=== PATIENT | female | born 1945 | race Asian ===

== ENCOUNTER 2017-09-22 01:10 | Emergency (ER) | payer OTHER ==
[2017-09-22] MEDS ORDERED: ALBUTEROL 2.5 MG/3 ML NEB SOL ONE (01:47)
[2017-09-22] MEDS ORDERED: IPRATROPIUM BROM 0.5MG/2.5ML ONE (01:47)
[2017-09-22 02:09] LABS: Absolute Lymphocytes (CBC) 2.1 K/uL (0.7-4.9); Absolute Monocytes 0.9 K/uL (0.1-1.3); Absolute Neutrophil 4.5 K/uL (1.8-8.0); Basophils % 1.2 % (0-1.3); Eosinophils % 1.7 % (0-4.4); Hematocrit 29.9 % (36.0-45.0); Lymphocytes % 27.2 % (15.3-44.8); MCH 21.9 pg (27.0-35.0); MCV 70.4 fL (80-100); MPV 8.6 fL (7.6-11.3); Monocytes % 11.7 % (3.3-12.3); RBC Red Blood Cell Count 4.26 M/uL (3.86-4.86)
[2017-09-22 02:11] LABS: Protime INR 1.71
[2017-09-22 02:15] LABS: Potassium 4.3 mEq/L (3.6-5.0)
[2017-09-22 02:20] LABS: CKMB Creatine Kinase MB 1.3 ng/ml (0.3-4.0)
[2017-09-22 02:21] LABS: Albumin 3.6 g/dL (3.2-5.5); Bilirubin Direct 0.1 mg/dL (0-0.2); Bilirubin Total 0.5 mg/dL (0.3-1.2); Magnesium 1.9 mg/dL (1.8-2.5); Protein, Total 8.3 g/dL (6.0-8.3)
--- NOTE | 2017-09-22 03:22 | ER ---
Nurse's Notes [facility] Name: Nallely Hanks Age: 71 yrs Sex: Female : 1945 Arrival Date: 09/22/2017 Time: 01:12 Bed 5 Private MD: Maksim Michael R Diagnosis: Dyspnea, unspecified Presentation: 09/22 01:32 Presenting complaint: Patient states: she is having SOB x 2 days which is getting bb progressively worse. Transition of care: patient was not received from another setting of care. Onset of symptoms was September 19, 2017. Initial Sepsis Screen: Does the patient meet any 2 criteria? No. Patient's initial sepsis screen is negative. Does the patient have a suspected source of infection? No. Patient's initial sepsis screen is negative. Care prior to arrival: None. 01:32 Method Of Arrival: Wheelchair bb 01:32 Acuity: PANTERA 2 bb Historical: - Allergies: 01:36 Codeine; bb 01:36 PENICILLINS; bb - Home Meds: 01:36 amlodipine besylate 10 mg 1 tab daily [Active]; atorvastatin 40 mg oral tab 1 tab once bb daily [Active]; metoprolol er succinate 25 mg 1 tab twice a day [Active]; Xarelto 20 mg Oral tab 1 tab once daily [Active]; levothyroxine 25 mcg tab 1 tab once daily [Active]; - PMHx: 01:36 CAD; CVA; Depression; Hypertension; Hypothyroidism; bb - PSHx: 01:36 Cholecystectomy; bb - Immunization history:: Adult Immunizations up to date. - Social history:: Smoking status: Patient/guardian denies using tobacco, Patient/guardian denies using alcohol, street drugs. Screenin:44 Abuse screen: Denies threats or abuse. Nutritional screening: No deficits noted. tl2 Tuberculosis screening: No symptoms or risk factors identified. Fall Risk None identified. Assessment: 01:44 General: Appears in no apparent distress. uncomfortable, Behavior is calm, cooperative, tl2 appropriate for age. Pain: Denies pain. Neuro: Level of Consciousness is awake, alert, obeys commands, Oriented to person, place, time, situation. Cardiovascular: Denies chest pain. Respiratory: Airway is patent Respiratory effort is even, labored, Respiratory pattern is regular, Breath sounds with wheezes bilaterally. the patient has mild shortness of breath. GI: No signs and/or symptoms were reported involving the gastrointestinal system. : No signs and/or symptoms were reported regarding the genitourinary system. Derm: Skin is pink, warm \T\ dry. 02:37 Reassessment: Patient appears in no apparent distress at this time. Patient and/or tl2 family updated on plan of care and expected duration. Pain level reassessed. Patient is alert, oriented x 3, equal unlabored respirations, skin warm/dry/pink. feeling better after breathing treatment. 03:44 Reassessment: Patient appears in no apparent distress at this time. Patient and/or mg2 family updated on plan of care and expected duration. Pain level reassessed. Patient is alert, oriented x 3, equal unlabored respirations, skin warm/dry/pink. Pt and family verbalized understanding of discharge instructions, need for follow up and prescription usage. Vital Signs: 01:36 BP 159 / 65; Pulse 67; Resp 24; Temp 97.7(O); Pulse Ox 100% on R/A; Weight 45.36 kg bb (R); Height 5 ft. 2 in. (157.48 cm) (R); Pain 0/10; 02:36 BP 150 / 77; Pulse 66; Resp 18; Pulse Ox 100% on R/A; tl2 03:44 BP 127 / 65; Pulse 69; Resp 18; Pulse Ox 96% on R/A; mg2 01:36 Body Mass Index 18.29 (45.36 kg, 157.48 cm) bb ED Course: 01:12 Patient arrived in ED. am2 01:12 Maksim Michael MD is Private Physician. am2 01:33 Triage completed. bb 01:36 [facility]C [facility] snw 01:36 Arm band placed on Patient placed in an exam room, on a stretcher, on junior web designer, bb on pulse oximetry. Family accompanied patient. 01:37 Claus Eagle MD is Attending Physician. snw 01:44 Ayse Landon RN is Primary Nurse. tl2 01:44 Patient has correct armband on for positive identification. Bed in low position. Call tl2 light in reach. Side rails up X2. Adult w/ patient. 01:44 Inserted saline lock: 22 gauge in right antecubital area, using aseptic technique. tl2 Blood collected. 02:11 X-ray completed. Portable x-ray completed in exam room. Patient tolerated procedure kp1 well. 02:12 XRAY Chest (1 view) In Process Unspecified. EDMS 03:20 Maksim Michael MD is Referral Physician. snw 03:44 No provider procedures requiring assistance completed. IV discontinued, intact, mg2 bleeding controlled, No redness/swelling at site. Pressure dressing applied. Administered Medications: 01:52 Drug: Albuterol - atroVENT (3:1) (2.5 mg - 0.5 mg) 3 ml Route: Nebulizer; tl2 03:46 Follow up: Response: Marked relief of symptoms mg2 Outcome: 03:21 Discharge ordered by MD. snw 03:44 Discharged to home via wheelchair, with family. mg2 03:44 Condition: stable 03:44 Discharge instructions given to patient, family, Instructed on discharge instructions, follow up and referral plans. medication usage, Demonstrated understanding of instructions, follow-up care, medications, Prescriptions given X 3. 03:47 Patient left the ED. mg2 Signatures: Dispatcher [employer] EDWI Eliana Peck, COOK APPRENTICE PASTRY-C COOK APPRENTICE PASTRY-Csnw Stephanie Alonzo RN RN bb Ayse Landon, JOSE RN tl2 Gely Kelsey am2 Eunice Abbasi kp1 Brayden Williamson, JOSE RN mg2
--- NOTE | 2017-09-22 03:22 | EDPHYS ---
Physician Documentation [facility] Name: Nallely Hanks Age: 71 yrs Sex: Female : 1945 Arrival Date: 09/22/2017 Time: 01:12 Bed 5 Private MD: Maksim Michael R ED Physician Claus Eagle HPI: 09/22 01:51 This 71 yrs old Female presents to ER via Wheelchair with complaints of Breathing snw Difficulty. 01:51 The patient has shortness of breath at rest. Onset: The symptoms/episode began/occurred snw suddenly, yesterday, and became worse. Duration: The symptoms are continuous, and are steadily getting worse. Associated signs and symptoms: The patient has no apparent associated signs or symptoms. Severity of symptoms: At their worst the symptoms were moderate. The patient has experienced similar episodes in the past. Historical: - Allergies: 01:36 Codeine; bb 01:36 PENICILLINS; bb - Home Meds: 01:36 amlodipine besylate 10 mg 1 tab daily [Active]; atorvastatin 40 mg oral tab 1 tab once bb daily [Active]; metoprolol er succinate 25 mg 1 tab twice a day [Active]; Xarelto 20 mg Oral tab 1 tab once daily [Active]; levothyroxine 25 mcg tab 1 tab once daily [Active]; - PMHx: 01:36 CAD; CVA; Depression; Hypertension; Hypothyroidism; bb - PSHx: 01:36 Cholecystectomy; bb - Immunization history:: Adult Immunizations up to date. - Social history:: Smoking status: Patient/guardian denies using tobacco, Patient/guardian denies using alcohol, street drugs. ROS: 01:52 Constitutional: Negative for fever, chills, and weight loss, Eyes: Negative for injury, snw pain, redness, and discharge, ENT: Negative for injury, pain, and discharge, Neck: Negative for injury, pain, and swelling, Cardiovascular: Negative for chest pain, palpitations, and edema, Abdomen/GI: Negative for abdominal pain, nausea, vomiting, diarrhea, and constipation, Back: Negative for injury and pain, : Negative for injury, bleeding, discharge, and swelling, MS/Extremity: Negative for injury and deformity, Skin: Negative for injury, rash, and discoloration, Neuro: Negative for headache, weakness, numbness, tingling, and seizure. Exam: 01:52 Head/Face: Normocephalic, atraumatic. Eyes: Pupils equal round and reactive to light, snw extra-ocular motions intact. Lids and lashes normal. Conjunctiva and sclera are non-icteric and not injected. Cornea within normal limits. Periorbital areas with no swelling, redness, or edema. ENT: Nares patent. No nasal discharge, no septal abnormalities noted. Tympanic membranes are normal and external auditory canals are clear. Oropharynx with no redness, swelling, or masses, exudates, or evidence of obstruction, uvula midline. Mucous membranes moist. Neck: Trachea midline, no thyromegaly or masses palpated, and no cervical lymphadenopathy. Supple, full range of motion without nuchal rigidity, or vertebral point tenderness. No Meningismus. Chest/axilla: Normal chest wall appearance and motion. Nontender with no deformity. No lesions are appreciated. Cardiovascular: Regular rate and rhythm with a normal S1 and S2. No gallops, murmurs, or rubs. Normal PMI, no JVD. No pulse deficits. 01:52 Abdomen/GI: Soft, non-tender, with normal bowel sounds. No distension or tympany. No guarding or rebound. No evidence of tenderness throughout. Back: No spinal tenderness. No costovertebral tenderness. Full range of motion. Skin: Warm, dry with normal turgor. Normal color with no rashes, no lesions, and no evidence of cellulitis. MS/ Extremity: Pulses equal, no cyanosis. Neurovascular intact. Full, normal range of motion. 01:52 Constitutional: The patient appears alert, anxious. 01:52 Respiratory: mild respiratory distress is noted, Respirations: prolonged exhalation, that is moderate, shallow respirations, Breath sounds: decreased breath sounds, that are moderate, are heard in the left upper lobe, left lower lobe, left posterior upper lobe and left posterior lower lobe. 01:52 Neuro: Orientation: appropriate for stated age, Mentation: appropriate for stated age, Motor: left sided paralysis from CVA in 2016, seizure activity, is not displayed by the patient. Vital Signs: 01:36 BP 159 / 65; Pulse 67; Resp 24; Temp 97.7(O); Pulse Ox 100% on R/A; Weight 45.36 kg bb (R); Height 5 ft. 2 in. (157.48 cm) (R); Pain 0/10; 02:36 BP 150 / 77; Pulse 66; Resp 18; Pulse Ox 100% on R/A; tl2 03:44 BP 127 / 65; Pulse 69; Resp 18; Pulse Ox 96% on R/A; mg2 01:36 Body Mass Index 18.29 (45.36 kg, 157.48 cm) bb MDM: 01:37 Patient medically screened. snw 03:27 Data reviewed: vital signs, nurses notes. Data interpreted: Pulse oximetry: on room air snw is 100 %. Interpretation: normal. Counseling: I had a detailed discussion with the patient and/or guardian regarding: the historical points, exam findings, and any diagnostic results supporting the discharge/admit diagnosis, the presence of at least one elevated blood pressure reading (>120/80) during this emergency department visit, lab results, radiology results, the need for outpatient follow up, to return to the emergency department if symptoms worsen or persist or if there are any questions or concerns that arise at home. Special discussion: I have referred the patient to see his PCP for further evaluation of high blood pressure. Based on the history and exam findings, there is no indication for further emergent testing or inpatient evaluation. I discussed with the patient/guardian the need to see the primary care provider for further evaluation of the symptoms. 09/22 01:38 Order name: Basic Metabolic Panel; Complete Time: 03:03 snw 09/22 01:38 Order name: BNP; Complete Time: 03:03 snw 09/22 01:38 Order name: CBC with Diff w 09/22 01:38 Order name: Ckmb; Complete Time: 03:03 snw 09/22 01:38 Order name: CPK; Complete Time: 03:03 snw 09/22 01:38 Order name: LFT's; Complete Time: 03:03 snw 09/22 01:38 Order name: Magnesium; Complete Time: 03:03 snw 09/22 01:38 Order name: PT-INR; Complete Time: 03:03 snw 09/22 01:38 Order name: Ptt, Activated; Complete Time: 03:03 snw 09/22 01:38 Order name: Troponin (emerg Dept Use Only); Complete Time: 03:03 snw 09/22 01:38 Order name: XRAY Chest (1 view) [facility] 09/22 01:38 Order name: ABG [facility] 09/22 02:13 Order name: CBC Smear Scan [facility] 09/22 01:38 Order name: EKG; Complete Time: 01:39 w 09/22 01:38 Order name: Cardiac monitoring; Complete Time: 01:43 snw 09/22 01:38 Order name: EKG - Nurse/Tech; Complete Time: :44 w 09/22 01:38 Order name: IV Saline Lock; Complete Time: :44 snw 09/22 01:38 Order name: Labs collected and sent; Complete Time: 44 snw 09/22 01:38 Order name: O2 Per Protocol; Complete Time: 09/22 01:38 Order name: O2 Sat Monitoring; Complete Time: snw Administered Medications: 01:52 Drug: Albuterol - atroVENT (3:1) (2.5 mg - 0.5 mg) 3 ml Route: Nebulizer; tl2 03:46 Follow up: Response: Marked relief of symptoms mg2 Disposition: 04:19 Co-signature as Attending Physician, Claus Eagle MD. rn Disposition: 09/22/17 03:21 Discharged to Home. Impression: Dyspnea, unspecified. - Condition is Stable. - Discharge Instructions: Iron Deficiency Anemia, Adult, Shortness of Breath. - Prescriptions for Albuterol Sulfate 90 mcg/actuation - inhale 1-2 puff by INHALATION route every 4-6 hours; 1 Inhaler. Vitamin 27- 0.8 mg Oral Tablet - take 1 tablet by ORAL route once daily; 30 tablet. Hydrochlorothiazide 25 mg Oral Tablet - take 1 tablet by ORAL route once daily .; 20 tablet. - Medication Reconciliation Form, Thank You Letter, Antibiotic Education, Prescription Opioid Use form. - Follow up: Maksim Michael MD; When: 48 Hours; Reason: Recheck today's complaints, Continuance of care, Re-evaluation by your physician. Follow up: Emergency Department; When: As needed; Reason: Trouble breathing, Worsening of condition. Signatures: Dispatcher [employer] [facility] Eliana Peck, ASSOCIATE PROFESSOR OF CRIMINAL JUSTICE-C ASSOCIATE PROFESSOR OF CRIMINAL JUSTICE-Csnw Stephanie Alonzo, RN Claus Youngblood MD MD rn KnoxAyse RN RN tl2 Brayden Williamson RN RN mg2 Corrections: (The following items were deleted from the chart) 03:47 01:38 Urine Dipstick-Ancillary ordered. [facility] mg2
[2017-09-22 03:51] VITALS: TEMP 97.7
[2017-09-22 03:53] VITALS: BP 127/65; O2SAT 96
[2017-09-22 03:59] LABS: Blood Morphology Comment NOTED (NOT SEEN); Hypochromasia 1+; Platelet Estimate ADEQ; Urine White Blood Cell Casts OK
[2017-09-22 04:13] LABS: Blood Gas Oxyhemoglobin 97.6 % (94-97); Blood O2 Saturation 97.8 % (92-98.5)
--- NOTE | 2017-09-22 10:11 | RAD REPORT ---
EXAM DESCRIPTION: RAD - Chest Single View - 09/22/2017 2:12 am CLINICAL HISTORY: Dyspnea, chest pain, shortness of breath COMPARISON: March 2017 TECHNIQUE: AP portable chest image was obtained 0151 hours . FINDINGS: No peripheral mass, consolidation or failure finding. Chronic interstitial lung disease is present similar to comparison. Nodular density over the lower right lung field is believed to be a n ipple shadow similar to prior imaging. Trachea is midline. Heart size is upper normal. No vascular en gorgement. No measurable pleural effusion and no pneumothorax. No gross bony abnormality seen. No acu te aortic findings suspected. IMPRESSION: Chronic chest findings are present as detailed. No clear change or acute finding.
--- NOTE | 2017-09-23 07:18 | EKG ---
Test Date: 2017-09-22 Test Time: 01:49:15 Cloud Automation Tester: NANCY MEASUREMENT RESULTS: Intervals: Rate: 79 DE: 288 QRSD: 86 QT: 436 QTc: 499 [place]: P: DE: 288 QRS: -24 T: 38 INTERPRETIVE STATEMENTS: Sinus rhythm with 1st degree AV block Septal infarct, age undetermined Abnormal ECG Compared to ECG 04/25/2017 09:00:22 Left-axis deviation no longer present Prolonged QT interval no longer present Myocardial infarct finding still present Electronically Signed On 09-23-17 07:17:57 CDT by Andrey Fenton
== END 2017-09-22 03:47 | disposition home or self-care (01) ==
LOC: ER 01:10
DX: R06.00 Dyspnea, unspecified (principal); I10 Essential (primary) hypertension; E03.9 Hypothyroidism, unspecified; I25.10 Atherosclerotic heart disease of native coronary artery without angina pectoris; Z79.01 Long term (current) use of anticoagulants; Z86.73 Personal history of transient ischemic attack (TIA), and cerebral infarction without residual deficits; Z88.0 Allergy status to penicillin; Z88.5 Allergy status to narcotic agent
CPT/HCPCS: 36415; 71045; 80048; 80076; 82550; 82553; 82805; 83735; 83880; 84484; 85025; 85610; 85730; 93005; 94640; 99284

== ENCOUNTER 2017-09-24 14:55 | Inpatient (IN) | payer OTHER ==
[2017-09-24] MEDS ORDERED: NACHLORIDE 0.45% 1,000 ML IV SCH (16:00)
[2017-09-24 16:30] LABS: Absolute Lymphocytes (CBC) 0.8 K/uL (0.7-4.9); Absolute Monocytes 0.5 K/uL (0.1-1.3); Absolute Neutrophil 6.1 K/uL (1.8-8.0); Basophils % 0.6 % (0-1.3); Eosinophils % 0.9 % (0-4.4); Hematocrit 31.5 % (36.0-45.0); Lymphocytes % 10.7 % (15.3-44.8); MCV 68.7 fL (80-100); MPV 8.6 fL (7.6-11.3); Monocytes % 6.3 % (3.3-12.3); RBC Red Blood Cell Count 4.59 M/uL (3.86-4.86)
[2017-09-24] MEDS ORDERED: Morphine 2 MG/2 ML SYR IV PRN (16:45)
[2017-09-24 16:54] LABS: Albumin 3.4 g/dL (3.2-5.5); Bilirubin Total 0.6 mg/dL (0.3-1.2); Potassium 4.3 mEq/L (3.6-5.0)
[2017-09-24 17:04] LABS: Blood Morphology Comment NOTED (NOT SEEN); Platelet Estimate ADEQ; Urine White Blood Cell Casts OK
[2017-09-24 17:31] LABS: Urine Appearance TURBID; Urine Bilirubin NEGATIVE (NEG); Urine Blood NEGATIVE (NEG); Urine Color YELLOW; Urine Glucose NEGATIVE (NEG); Urine Microscopic Reflex ORDER UMIC; Urine Protein TRACE (NEG); Urine pH 7.5 (5.0-7.0)
[2017-09-24 17:44] LABS: Urine Bacteria 20-50 /HPF (<20); Urine RBC <5 /HPF (NONE SEEN)
[2017-09-24 17:45] LABS: Urine Amorphous Sediment 1+ /HPF (NONE SEEN); Urine Culture Reflex Order REFLEXED
--- NOTE | 2017-09-24 19:30 | RAD REPORT ---
EXAM DESCRIPTION: CTAbdomen Pelvis W Contrast - 09/24/2017 7:03 pm CLINICAL HISTORY: Abdominal pain. COMPARISON: None. TECHNIQUE: Biphasic CT imaging of the abdomen and pelvis was performed with 100 ml non-ionic IV cont rast. All CT scans are performed using dose optimization technique as appropriate and may include automated exposure control or mA/KV adjustment according to patient size. FINDINGS: Small amount of left pleural fluid noted with subsegmental atelectasis in left lung base. The liver demonstrates mild intrahepatic biliary dilatation. The spleen, pancreas, adrenal glands and kidneys are within normal limits. Cholecystectomy is seen with prominence of common bile duct measur ing up to 10 mm. Aortic atherosclerosis is present. Multiple dilated small bowel loops are noted proximally with more distal small bowel appearing decomp ressed, most compatible with partial mechanical small bowel obstruction. No pneumatosis. No free intr aperitoneal air. Mild free fluid seen lower abdomen. The appendix is not identified as a discrete str ucture, however, no secondary findings of appendicitis are identified. No evidence of significant l ymphadenopathy. Moderate lower lumbar degenerative changes. IMPRESSION: Moderate partial mechanical small bowel obstruction is noted. Findings were discussed with Dr. Michael at 7:30 p.m. 09/24/2017 by telephone.
[2017-09-24] MEDS: METRONIDAZOLE 500mg IVPB 500 MG/100 ML BAG IV SCH (20:55)
[2017-09-24] MEDS: NACHLORIDE 0.45% 1,000 ML IV SCH (20:55)
[2017-09-24] MEDS: CIPROFLOXACIN 400mg IV 400 MG/200 ML BAG IV SCH (20:56)
[2017-09-24] MEDS: Morphine 2 MG/2 ML SYR IV PRN (21:46)
[2017-09-24] MEDS ORDERED: ONDANSETRON 4 MG/2 ML VIAL IV PRN (22:04)
[2017-09-25] MEDS: METRONIDAZOLE 500mg IVPB 500 MG/100 ML BAG IV SCH ×3 (01:18→16:57)
[2017-09-25 05:33] LABS: Absolute Lymphocytes (CBC) 0.9 K/uL (0.7-4.9); Absolute Monocytes 0.6 K/uL (0.1-1.3); Absolute Neutrophil 6.2 K/uL (1.8-8.0); Basophils % 0.5 % (0-1.3); Eosinophils % 0.5 % (0-4.4); Hematocrit 27.9 % (36.0-45.0); Lymphocytes % 11.1 % (15.3-44.8); MCV 70.3 fL (80-100); MPV 8.5 fL (7.6-11.3); Monocytes % 7.4 % (3.3-12.3); RBC Red Blood Cell Count 3.97 M/uL (3.86-4.86)
[2017-09-25 05:38] LABS: MCH 21.5 pg (27.0-35.0)
[2017-09-25 05:43] LABS: BUN Blood Urea Nitrogen 17 mg/dL (6-20); Bicarbonate 26 mEq/L (21-31); Glucose Level 115 mg/dL (65-120); Magnesium 1.6 mg/dL (1.8-2.5); Phosphorus 4.1 mg/dL (2.5-4.3); Potassium 3.5 mEq/L (3.6-5.0); Sodium Level 131 mEq/L (135-145)
[2017-09-25] MEDS: NACHLORIDE 0.45% 1,000 ML IV SCH ×2 (07:30→12:52)
--- NOTE | 2017-09-25 08:50 | RAD REPORT ---
EXAM DESCRIPTION: RAD - Abdomen W Erect - 09/25/2017 6:57 am CLINICAL HISTORY: Bowel obstruction. COMPARISON: 09/24/2017 FINDINGS: Multiple dilated loops of small bowel are seen in the central abdomen compatible with mode rate mechanical small-bowel obstruction. NG tube descends in the stomach. Cholecystectomy clips seen. No pneumoperitoneum. No suspicious calcifications. Contrast in the urinary bladder. IMPRESSION: Moderate mechanical small-bowel obstruction seen, mildly improved since recent CT study.
[2017-09-25] MEDS: CIPROFLOXACIN 400mg IV 400 MG/200 ML BAG IV SCH ×2 (09:20→20:50)
[2017-09-25] MEDS: Morphine 2 MG/2 ML SYR IV PRN (11:12)
--- NOTE | 2017-09-25 12:16 | EKG ---
Test Date: 2017-09-25 Test Time: 11:36:20 Metal Trimmer: GABINO MEASUREMENT RESULTS: Intervals: Rate: 62 MO: 258 QRSD: 92 QT: 490 QTc: 497 [place]: P: 66 MO: 258 QRS: 29 T: 54 INTERPRETIVE STATEMENTS: Sinus rhythm with 1st degree AV block Anterior infarct, age undetermined Abnormal ECG Compared to ECG 09/22/2017 01:49:15 No significant changes Electronically Signed On 09-25-17 12:15:40 CDT by Andrey Fenton
--- NOTE | 2017-09-25 13:39 | ECHO ---
HEIGHT: 5 ft 2 in WEIGHT: 90 lb 8 oz DATE OF STUDY: 09/25/[address]: 2-DIMENSIONAL: YES M.MODE: YES DOPPLER: YES COLOR FLOW: YES TDS: NO PORTABLE: NO DEFINITY: NO BUBBLE STUDY: NO DIAGNOSIS: HISTORY OF AFIB CARDIAC HISTORY: CATHERIZATION: NO SURGERY: NO PROSTHETIC VALVE: NO PACEMAKER: NO MEASUREMENTS (cm) DIASTOLIC (NORMALS) SYSTOLIC (NORMALS) IVSd 0.8 (0.6-1.2) LA Diam 3.0 (1.9-4.0) LVEF 78% LVIDd 4.1 (3.5-5.7) LVIDs 2.2 (2.0-3.5) %FS 46% LVPWd 0.9 (0.6-1.2) Ao Diam 2.5 (2.0-3.7) 2 DIMENSIONAL ASSESSMENT: RIGHT ATRIUM: NORMAL LEFT ATRIUM: NORMAL RIGHT VENTRICLE: NORMAL LEFT VENTRICLE: NORMAL TRICUSPID VALVE: NORMAL MITRAL VALVE: NORMAL PULMONIC VALVE: NORMAL AORTIC VALVE: NORMAL PERICARDIAL EFFUSION: NONE AORTIC ROOT: NORMAL LEFT VENTRICULAR WALL MOTION: NORMAL DOPPLER/COLOR FLOW: MILD MITRAL, TRICUSPID, AORTIC REGURGITATION. ESTIMATED RIGHT VENTRICULAR SYSTOLIC PRESSURE 40 MMHG. MILD PULMONARY HYPERTENSION. COMMENTS: NORMAL 2D ECHOCARDIOGRAM. MILD MITRAL, TRICUSPID, AORTIC REGURGITATION. MILD PULMONARY HYPERTENSION. TECHNOLOGIST: GRAZYNA PIPER
--- NOTE | 2017-09-25 14:33 | CON ---
Date of Consultation: 09/24/2017 Reason: Small bowel obstruction. History Of Present Illness: The patient is a 71-year-old female who comes in with 2-day history of a bdominal distention, nausea, vomiting, last bowel movement was 2 days ago, and that the last time she passed gas. Complaining of diffuse abdominal crampy pain off and on, feels better after the NG tube is placed. No sore throat, runny nose, cough, headaches, or dizziness. No chest pain. Review of Systems: Otherwise unremarkable. Past Medical History: Significant for stroke with left hemiplegia, congestive heart failure, chronic atrial fibrillation, and hypertension. Past Surgical History: Hysterectomy, cholecystectomy, PEG tube. Allergies: INCLUDE CODEINE AND PENICILLIN. Social History: She does not smoke or drink. Family History: Significant for diabetes. Physical Examination: Vital Signs: Stable. She is afebrile. General: She is awake, alert, and oriented x3. Head and Neck: Cranial 2-12 grossly within normal limits. No neck masses. No JVD. Throat clear. Neck is supple. Chest: Clear. Heart: S1, S2. Abdomen: Soft. Minimal tenderness. Slightly distended. Hypoactive bowel sounds. No peritonitis. Extremity: Adequately perfused. Neuro: Left hemiplegia. Laboratory Data: White count is normal, but there is a slight left shift. H and H are 8.5 and 27.9. Electrolytes reviewed, her mag is slightly low at 1.6, potassium is 3.5. CT of the abdomen and pel vis, and abdominal x-ray done this morning and reviewed with Dr. Vargas essentially show a partial smal l bowel obstruction, which is slightly improved on the x-rays today. Assessment: A partial small bowel obstruction. Recommendation: Continue n.p.o. NG tube, IV fluids, IV antibiotics. We will get another x-ray tomor row morning and if the patient not improve, may benefit from a small bowel series. If conservative m easures fail, she may need surgical intervention. Plan of care discussed with patient as well as Dr. Michael. NELLIE/MODAl Voice ID: [id number] Report ID: [id number]
--- NOTE | 2017-09-25 15:39 | CON ---
Reason For Consult: Preop clearance. Reason For Hospitalization: Bowel obstruction. History Of Present Illness: Ms. Hanks has been under my care for atrial fibrillation. She had a la rge stroke and is hemiplegic in spite of being on anticoagulants. After that, she underwent pulmonar y vein isolation procedure. Has been in sinus rhythm. She still takes Xarelto. Her last dose of Xa relto was September 23 at about 8 o'clock in the morning. This is September 25 about noon, so her anticoagu lation would seem to be fine. Her other outpatient medications had been metoprolol, Xarelto, levothyr oxine, amiodarone, valsartan, hydrochlorothiazide, amlodipine and atorvastatin. She has dyslipidemia , hypertension, atrial fibrillation, although maintaining sinus rhythm, hypothyroidism. She has had normal stress test, never had any evidence of coronary heart disease. Physical Examination: General: She is 5 feet 2 inches, 90 pounds. Appears to be chronically ill, older than her stated ag e. She is able to speak. She seems to have a left hemiparesis mostly. Lungs: Clear. Heart: Regular rate and rhythm. No significant gallop. Abdomen: Soft, but bowel sounds are almost evident, and it is tender. It is not a rigid as in perit onitis. Extremities: There is wasting. There does not seem to be edema. Distal pulses palpable. Recommendation: An EKG has not been done as of yet. We will do an EKG, an echocardiogram, and I chiara l review those as soon as we have the test done. I believe she would be an acceptable candidate to [facility] surgery. It is not really an elective surgery at this point. If her bowel obstruction does n ot resolve soon, surgery will be considered life-saving. I do not actually have Dr. Miller's notes. I am not sure if he has seen her, but all the findings indicate small bowel obstruction continue at t his point, so surgery is likely. I consider her low risk for general anesthesia. Her bleeding probl ems are such that she is stable to undergo surgery today if that is Dr. Miller's recommendation. SH/MODL Voice ID: [id number] Report ID: [id number]
--- NOTE | 2017-09-25 19:39 | HP ---
Date of Admission: 09/24/2017 History Of Present Illness: This patient was brought to the office with left lower and left mid abdo dougie pain. The patient was found to have tenderness with possibility of acute abdomen. The patient was admitted. After admission, the patient had a CAT scan done. This showed small bowel obstructi on. The patient had a gastrostomy done in the past for feeding purpose. Past Medical History: Extensive includes history of stroke with left hemiplegia, chronic atrial fibr illation, hypothyroidism, hyperlipidemia, asthma, bedridden status. Family History: Noncontributory. Surgical History: History of PEG tube for feeding in the past. Home Medicines: Please refer to the chart. Review of Systems: No chest pain. Physical Examination: General: Revealed a 71-year-old female, ill-looking. HEENT: Negative, other than having the NG tube. Neck: Supple. JVD negative. Chest: Few scattered wheezes. Heart: Irregularity noted. Abdomen: Tender left upper quadrant. Bowel sounds present. Extremities: No edema. Neurologic: Left hemiplegia. Laboratory Data: White count normal. CT scan, small bowel obstruction. Assessment: 1.Small-bowel obstruction. 2.Left hemiplegia, old. 3.Chronic atrial fibrillation. 4.Bedridden status. 5.History of asthma. 6.History of hypothyroidism. Plan: N.p.o., NG suction, surgical consultation. MARIBETH/CHANTELLE Voice ID: [id number]
[2017-09-26] MEDS: METRONIDAZOLE 500mg IVPB 500 MG/100 ML BAG IV SCH ×3 (00:08→17:22)
[2017-09-26] MEDS: NACHLORIDE 0.45% 1,000 ML IV SCH ×2 (01:30→13:12)
[2017-09-26 05:51] LABS: Magnesium 1.7 mg/dL (1.8-2.5); Phosphorus 3.7 mg/dL (2.5-4.3); Potassium 3.6 mEq/L (3.6-5.0)
--- NOTE | 2017-09-26 08:14 | RAD REPORT ---
EXAM DESCRIPTION: RAD - Abdomen W Erect - 09/26/2017 7:07 am CLINICAL HISTORY: Small bowel obstruction. COMPARISON: 09/25/2017 FINDINGS: No significant change is seen in the multiple dilated small bowel loops in the central abd omen compatible with partial mechanical small bowel obstruction. NG tube descends into the stomach. N o evidence of pneumoperitoneum. Cholecystectomy clips seen. No suspicious calcifications. IMPRESSION: No significant change is seen in the moderate mechanical small-bowel obstruction.
[2017-09-26] MEDS: CIPROFLOXACIN 400mg IV 400 MG/200 ML BAG IV SCH ×2 (09:58→20:42)
--- NOTE | 2017-09-26 11:37 | PN ---
Date of Progress Note: 09/26/2017 Subjective: The patient is awake and alert. She states her pain is better; however, she has not had a bowel movement or passing any gas. Objective: Vital Signs: Stable. Afebrile. Abdomen: Soft, nondistended. Hypoactive bowel sounds. No peritonitis. Laboratory Data: Electrolytes are essentially within normal limits. An abdominal x-ray does not karyn w significant change from yesterday. Assessment: Partial small bowel obstruction. Recommendation: We will continue current management and also get a small bowel series in this adelinen g and make further recommendations after the small bowel series. /MODL Voice ID: [id number] Report ID: [id number]
--- NOTE | 2017-09-26 12:22 | PN ---
Date of Progress Note: 09/26/2017 Ms. Hanks has been seen by Dr. Fenton and cleared for small bowel obstruction surgery if needed. Ec hocardiogram that was done and was normal. Her EKG is sinus. She has seen Dr. Fenton in the past fo r atrial fibrillation. She had but has good bowel sounds. Dr. Miller has not seen the pat ient yet, but will be available if questioned, if she goes through surgery, and she is definitely at low risk for that. HYUN/CHANTELLE Voice ID: [id number] Report ID: [id number]
--- NOTE | 2017-09-26 20:08 | RAD REPORT ---
EXAM DESCRIPTION: RAD - Small Bowel Series - 09/26/2017 7:59 pm CLINICAL HISTORY: Small bowel obstruction COMPARISON: CT September 24, [facility] imaging September 26 and September 25 FINDINGS: Boom Master film shows distended and minimally dilated small bowel loops. Air and stool are pres ent throughout the colon. No free air or pneumatosis. No suspicious calcifications. NG tube is in trent ce in the proximal stomach. Gastric size and mucosal fold pattern are normal. No delay in transit of contrast into the small dylan l. Prominent small bowel loops are present. Mild edema changes are present in the ileum. No small bow el mass confirmed. Relatively limited amount of contrast limits full assessment of small bowel masses . Transit time to the colon was 2 hours. Terminal ileum has normal appearance. Transit time to the co ambrocio is normal. IMPRESSION: No small bowel obstruction. Contrast reaches the colon in 2 hours. Mucosal edema in the ileum. No discrete mass or stricture identified.
[2017-09-27] MEDS: METRONIDAZOLE 500mg IVPB 500 MG/100 ML BAG IV SCH ×3 (00:04→16:47)
--- NOTE | 2017-09-27 02:08 | PN ---
The patient still has intermittent abdominal pain. Her x-ray still looks like she has continued obst ruction of small bowel. The patient is scheduled for small-bowel series to see whether she would req uire surgical intervention. MARIBETH/CHANTELLE Voice ID: [id number] Report ID: [id number]
[2017-09-27] MEDS: NACHLORIDE 0.45% 1,000 ML IV SCH ×3 (02:30→15:34)
[2017-09-27] MEDS: ALBUTEROL 2.5 MG/3 ML NEB SOL NEB SCH ×3 (07:27→20:04)
--- NOTE | 2017-09-27 08:52 | RAD REPORT ---
EXAM DESCRIPTION: Babita Single View09/27/2017 7:24 am CLINICAL HISTORY: Shortness of breath COMPARISON: September 22, 2017 FINDINGS: A nasogastric tube has been placed into the stomach. The lungs appear clear of acute infiltrate. The heart is mildly enlarged
[2017-09-27] MEDS: CIPROFLOXACIN 400mg IV 400 MG/200 ML BAG IV SCH ×2 (08:58→20:45)
--- NOTE | 2017-09-27 15:55 | PN ---
Subjective: The patient is awake and alert. Has passing gas; however, she states that she does not feel well. Her vital signs are stable. She is afebrile. Her small bowel series done yesterday, it is normal. There was contrast in the colon within less than 2 hours, so she does not have a small-todd wel obstruction. Objective: Abdomen: Soft, nondistended, nontender. Positive bowel sounds. Assessment: Small bowel obstruction, resolved. Recommendations: We will start the patient on clear liquids and clamp the NG tube. Hopefully, disch arge in a day or 2. NELLIE/CHANTELLE Voice ID: [id number] Report ID: [id number]
[2017-09-27] MEDS ORDERED: NACHLORIDE 0.45% 1,000 ML IV SCH (21:00)
[2017-09-27] MEDS ORDERED: FUROSEMIDE 20 MG/ 2ML VIAL IV ONE (21:00)
[2017-09-28] MEDS: METRONIDAZOLE 500mg IVPB 500 MG/100 ML BAG IV SCH ×3 (00:16→16:21)
[2017-09-28] MEDS: LEVOTHYROXINE SOD 0.025 MG TAB PO ONE ×2 (00:18)
[2017-09-28] MEDS: RIVAROXABAN 10 MG TABLET PO ONE ×2 (00:18)
[2017-09-28] MEDS: ALBUTEROL 2.5 MG/3 ML NEB SOL NEB SCH ×2 (01:49→08:00)
[2017-09-28 06:07] LABS: Absolute Lymphocytes (CBC) 0.6 K/uL (0.7-4.9); Absolute Monocytes 0.8 K/uL (0.1-1.3); Basophils % 0.6 % (0-1.3); Eosinophils % 0.1 % (0-4.4); Hematocrit 27.2 % (36.0-45.0); Lymphocytes % 8.3 % (15.3-44.8); MCH 21.5 pg (27.0-35.0); MCV 69.3 fL (80-100); Monocytes % 11.2 % (3.3-12.3); RBC Red Blood Cell Count 3.92 M/uL (3.86-4.86)
[2017-09-28 06:38] LABS: Phosphorus 2.7 mg/dL (2.5-4.3)
[2017-09-28 06:52] LABS: Magnesium 1.5 mg/dL (1.8-2.5)
[2017-09-28] MEDS: CIPROFLOXACIN 400mg IV 400 MG/200 ML BAG IV SCH ×2 (08:48→21:03)
[2017-09-28] MEDS: ENOXAPARIN 30 MG/0.3 ML SQ SCH (08:52)
[2017-09-28] MEDS ORDERED: KCL 20 MEQ/100 mL IVPB 20 MEQ/100 ML BAG IV SCH (09:00)
[2017-09-28] MEDS ORDERED: MAGNESIUM SULFATE 1 gm IVPB 1 GM/100 ML BAG IV ONE (09:00)
[2017-09-28] MEDS: ALBUTEROL 2.5 MG/3 ML NEB SOL NEB PRN ×2 (12:23→19:42)
--- NOTE | 2017-09-28 12:28 | RAD REPORT ---
EXAM DESCRIPTION: RAD - Abdomen Single View - 09/28/2017 11:34 am CLINICAL HISTORY: Abdominal pain FINDINGS: A nasogastric tube is present within the stomach. The bowel gas pattern is unremarkable with contrast present within the colon.
--- NOTE | 2017-09-28 12:29 | RAD REPORT ---
EXAM DESCRIPTION: Babita Single View09/28/2017 11:34 am CLINICAL HISTORY: sob COMPARISON: none FINDINGS: Mild left lower lobe atelectasis is seen. The remainder lungs appear clear of acute infil trate. The heart is mildly enlarged
--- NOTE | 2017-09-28 13:18 | PN ---
Date of Progress Note: 09/28/2017 Subjective: The patient is awake and alert. Says that throat hurts because of the NG tube. No abdo dougie pain. She had a high residual yesterday and NG tube was put back to suction. X-ray was ordere d this morning, which shows no evidence of small-bowel obstruction. No dilatation of the small bowel . There is contrast in the colon. Her laboratory data reviewed. Her potassium is low and magnesium is low, which is being replaced. Her abdomen Soft, nondistended, nontender. Positive bowel sounds. Assessment: Small bowel obstruction, resolving. Recommendations: I discussed the case in detail with Dr. Fraser. I believe her motility is po or and we will try Reglan for that purpose. We will try clear liquids again and clamp the NG tube ag ain. I do not think she needs surgery at this time and discussion will be made with the family leanne ding the use of TPN while the patient recovers. We will follow the patient closely. NELLIE/CHANTELLE Voice ID: [id number] Report ID: [id number]
[2017-09-28] MEDS: METOCLOPRAMIDE 5 MG TAB PO SCH ×2 (13:19→21:04)
--- NOTE | 2017-09-28 19:24 | PN ---
The patient had shortness of breath that was relieved with IV Lasix and discontinuation of IV fluids. Her small-bowel study does not show any evidence of obstruction. I discussed the case with Dr. Vince harris. He also feels that the patient very likely has decreased motility of bowels. The patient will b e tried on Reglan to see whether that would improve. The patient meanwhile is getting a breathing tr eatments, and she does not want to take Xarelto, another medicines, so she is started on Lovenox for DVT prevention. MARIBETH/CHANTELLE Voice ID: [id number] Report ID: [id number]
[2017-09-28] MEDS: GUAIFENESIN/DM 5 ML UCUP PO PRN (21:04)
[2017-09-28] MEDS: ENSURE CLEAR 200 ML CAN PO SCH (21:06)
[2017-09-29] MEDS: ALBUTEROL 2.5 MG/3 ML NEB SOL NEB PRN (00:15)
[2017-09-29] MEDS: IPRATROPIUM BROM 0.5MG/2.5ML NEB SCH ×7 (00:23→23:29)
[2017-09-29] MEDS ORDERED: METHYLPREDNISOLONE 40 MG INJ IV ONE (00:24)
[2017-09-29] MEDS: METRONIDAZOLE 500mg IVPB 500 MG/100 ML BAG IV SCH ×3 (01:00→16:17)
[2017-09-29] MEDS: ALBUTEROL 2.5 MG/3 ML NEB SOL NEB SCH ×6 (04:00→23:29)
[2017-09-29 07:14] VITALS: BMI 18.3
[2017-09-29] MEDS: ENSURE CLEAR 200 ML CAN PO SCH ×2 (09:00→20:07)
[2017-09-29] MEDS: CIPROFLOXACIN 400mg IV 400 MG/200 ML BAG IV SCH ×2 (09:43→20:06)
[2017-09-29] MEDS: METOCLOPRAMIDE 5 MG TAB PO SCH ×2 (09:44→20:06)
[2017-09-29] MEDS: ENOXAPARIN 30 MG/0.3 ML SQ SCH (09:44)
--- NOTE | 2017-09-29 13:25 | PN ---
Date of Progress Note: 09/29/2017 Subjective: The patient is awake, alert. Tolerated clear liquids. NG residual is 0. No pain. No nausea or vomiting. Objective: Vital Signs: Stable. Afebrile. Abdomen: Soft, nondistended, nontender. Positive bowel sounds. Assessment: Small-bowel obstruction, resolved. Recommendation: Discontinue NG tube, advance diet to full liquids, and to regular diet, and if she t olerates that hopefully discharge in 24 to 48 hours. NELLIE/CHANTELLE Voice ID: [id number] Report ID: [id number]
[2017-09-29] MEDS: GUAIFENESIN/DM 5 ML UCUP PO PRN (20:17)
[2017-09-30] MEDS: METRONIDAZOLE 500mg IVPB 500 MG/100 ML BAG IV SCH ×3 (01:23→16:05)
[2017-09-30] MEDS: IPRATROPIUM BROM 0.5MG/2.5ML NEB SCH ×6 (03:36→23:55)
[2017-09-30] MEDS: ALBUTEROL 2.5 MG/3 ML NEB SOL NEB SCH ×6 (03:36→23:55)
[2017-09-30] MEDS: ENSURE CLEAR 200 ML CAN PO SCH ×2 (09:00→21:00)
[2017-09-30] MEDS: CIPROFLOXACIN 400mg IV 400 MG/200 ML BAG IV SCH (09:35)
[2017-09-30] MEDS: METOCLOPRAMIDE 5 MG TAB PO SCH ×2 (09:36→20:40)
[2017-09-30] MEDS: ENOXAPARIN 30 MG/0.3 ML SQ SCH (09:36)
--- NOTE | 2017-09-30 13:31 | PN ---
Date of Progress Note: 09/30/2017 Subjective: The patient is awake and alert. Complained of 1 episode of abdominal pain. She is much better now. Tolerating her full liquid diet. No nausea or vomiting. Objective: Vital Signs: Stable. Afebrile. Abdomen: Benign. Assessment: Small-bowel obstruction, resolved. Recommendation: We will advance diet today to a soft diet. The patient is cleared for discharge whe n medically stable. /MODL Voice ID: [id number] Report ID: [id number]
[2017-09-30] MEDS ORDERED: BISACODYL 10 MG RECTAL SUPP PR ONE (14:37)
--- NOTE | 2017-09-30 18:13 | PN ---
The patient is doing better. She is trying full diet today. If she tolerates, she will be discharge d. MARIBETH/CHANTELLE Voice ID: [id number] Report ID: [id number]
[2017-09-30] MEDS ORDERED: ACETAMINOPHEN 500 MG TAB PO PRN (19:55)
[2017-10-01] MEDS: ALBUTEROL 2.5 MG/3 ML NEB SOL NEB SCH ×3 (04:00→12:45)
[2017-10-01] MEDS: IPRATROPIUM BROM 0.5MG/2.5ML NEB SCH ×3 (04:00→12:45)
[2017-10-01] MEDS: ENOXAPARIN 30 MG/0.3 ML SQ SCH (08:54)
[2017-10-01] MEDS: ENSURE CLEAR 200 ML CAN PO SCH (08:54)
[2017-10-01] MEDS: METOCLOPRAMIDE 5 MG TAB PO SCH (08:54)
[2017-10-01 09:48] VITALS: O2SAT 96
[2017-10-01 18:00] VITALS: BP 127/60; TEMP 99
--- NOTE | 2017-11-03 17:25 | DS ---
Date of Discharge: 10/01/2017 Final Diagnoses: 1.Small bowel obstruction. 2.Old cerebrovascular accident with left hemiplegia. 3.Chronic atrial fibrillation. 4.Bedridden status. 5.History of asthma. 6.History of hypothyroidism. 7.Protein-calorie malnutrition with underweight status. Hospital Course: This patient was admitted because of abdominal pain and evidence of small bowel obs truction on the CAT scan. After this diagnosis, the patient had NG tube insertion. The patient was seen by Dr. Miller as part of surgical evaluation. The patient was followed over the next few days wi th a serial x-rays. The patient showed clinical improvement. A small bowel contrast study was done. This showed evidence of passage of contrast material all the way to the colon. At this point, the patient was given diet and she tolerated and she was discharged home on 10/01/2017 with Reglan to imp rove her motility issue. Laboratory Data: CT scan of the abdomen has evidence of small bowel obstruction. White count at adm ission normal, hemoglobin 10.1. MARIBETH/CHANTELLE Voice ID: [id number] Report ID: [id number]
== END 2017-10-01 15:55 | disposition home or self-care (01) | DRG 389 ==
LOC: 2ND 15:13 → OBSVTOIN 09-25 08:09
PROVIDERS: ADMIT Internal Medicine; ATTEND Internal Medicine
DX: K56.600 Partial intestinal obstruction, unspecified as to cause (principal); I69.354 Hemiplegia and hemiparesis following cerebral infarction affecting left non-dominant side; I48.2 Chronic atrial fibrillation; E03.9 Hypothyroidism, unspecified; E78.5 Hyperlipidemia, unspecified; Z74.01 Bed confinement status
CPT/HCPCS: 36415; 71045; 74018; 74019; 74177; 74250; 80048; 80053; 81003; 81015; 83735; 84100; 84443; 85025; 87077; 87086; 87088; 87186; 93005; 93306; G0378; G0379; J0744; J1650; J1940; J2270; J2405; J2920; J3475; Q9967

== ENCOUNTER 2017-10-29 14:40 | Inpatient (IN) | payer OTHER ==
[2017-10-29] MEDS ORDERED: NACHLORIDE 0.45% 1,000 ML IV SCH (16:00)
[2017-10-29 16:40] LABS: Albumin 3.3 g/dL (3.2-5.5); Bilirubin Total 0.6 mg/dL (0.3-1.2); Potassium 4.3 mEq/L (3.6-5.0); Protein, Total 8.2 g/dL (6.0-8.3)
[2017-10-29] MEDS: MORPHINE 4 MG/ML SYR IV PRN ×2 (16:40→20:47)
[2017-10-29 16:41] LABS: Absolute Lymphocytes (CBC) 1.2 K/uL (0.7-4.9); Absolute Monocytes 0.5 K/uL (0.1-1.3); Basophils % 0.8 % (0-1.3); Eosinophils % 0.6 % (0-4.4); Hematocrit 33.4 % (36.0-45.0); MCH 20.7 pg (27.0-35.0); MCV 66.8 fL (80-100); MPV 8.6 fL (7.6-11.3); Monocytes % 8.8 % (3.3-12.3); RBC Red Blood Cell Count 4.99 M/uL (3.86-4.86)
[2017-10-29 17:27] VITALS: BMI 17.9
[2017-10-29 17:32] LABS: Platelet Estimate ADEQ; Urine White Blood Cell Casts OK
[2017-10-29 17:33] LABS: Anisocytosis SLIGHT; Blood Morphology Comment NOTED (NOT SEEN); Hypochromasia 1+
--- NOTE | 2017-10-29 21:46 | RAD REPORT ---
EXAM DESCRIPTION: CT - Abdomen Pelvis W Contrast - 10/29/2017 6:54 pm CLINICAL HISTORY: Abdominal pain. COMPARISON: September 24, 2017 TECHNIQUE: Computed axial tomography of the abdomen and pelvis was obtained. 100 cc Isovue-300 is ad ministered intravenously. Oral contrast was given. All CT scans are performed using dose optimization technique as appropriate and may include automated exposure control or mA/KV adjustment according to patient size. FINDINGS: Mild to moderate dilatation of the intrahepatic biliary tree is present. The common bile duct is dila osei. The gallbladder has been removed. Spleen, pancreas, adrenals and kidneys appear unremarkable. There is no evidence of diverticulitis Loops of jejunum and ileum are mildly dilated. Portions of the ileum are decompressed. IMPRESSION: These findings most likely indicate a mild partial mechanical obstruction Mild to moderate dilatation of the biliary tree can be a normal finding in a patient status post chol ecystectomy. Pathology such as common bile duct stricture can also result in this appearance should b e correlated clinically The exam was discussed with Dr. Michael
[2017-10-30] MEDS: MORPHINE 4 MG/ML SYR IV PRN ×2 (00:26→04:53)
[2017-10-30] MEDS: NACHLORIDE 0.45% 1,000 ML IV SCH ×3 (04:52→19:05)
[2017-10-30] MEDS: ATORVASTATIN 40 MG TAB PO SCH ×2 (08:11→09:29)
[2017-10-30] MEDS: AMIODARONE HCL 200 MG TAB PO SCH ×2 (08:11→09:26)
[2017-10-30] MEDS: RIVAROXABAN 10 MG TABLET PO SCH ×2 (08:11→09:30)
[2017-10-30] MEDS: CIPROFLOXACIN 400mg IV 400 MG/200 ML BAG IV SCH ×2 (09:26→20:38)
[2017-10-30] MEDS: Morphine 2 MG/2 ML SYR IV PRN ×3 (09:27→20:38)
--- NOTE | 2017-10-30 13:41 | CON ---
Date of Consultation: 10/30/2017 Reason For Consultation: Partial small bowel obstruction. History Of Present Illness: The patient is 72-year-old female, who presents with a couple of day his tory of abdominal pain associated with 1 episode of nausea and vomiting. Her last bowel was yesterda y. Occasionally, she is passing gas. She had similar complaints about a month ago, was admitted, an d a small bowel series at that time did not show any evidence of obstruction. She was put on Reglan to which she responded; however, when she got home, her stopped all of her medications and sh e returns with similar complaints. No sore throat, runny nose, cough, headaches, or dizziness. No c hest pain. No fever or chills. Review of Systems: Otherwise unremarkable. Past Medical History: Left hemiplegia, CHF, chronic AFib, hypertension. Past Surgical History: Hysterectomy, cholecystectomy, and PEG tube. Allergies: INCLUDE CODEINE AND PENICILLIN. Social History: She does not smoke or drink. Family History: Significant for diabetes. Physical Examination: Vital Signs: Her vital signs are stable. She is afebrile. General: She is awake, alert, and oriented x3. Head and Neck: Cranial nerves 2 through 12 are grossly within normal limits. No neck masses. No JV D. Throat clear. Neck is supple. Chest: Clear. Heart: S1, S2. Abdomen: Soft, slightly distended. Minimal tenderness. No rebound, rigidity, or guarding. It is m ostly in the lower abdomen. Extremities: Neurovascularly intact. Neuro: Left hemiplegic changes, otherwise nonfocal. Laboratory Data: White count is 5.8. There is a left shift. Chemistry does not show any evidence o f acidosis, and CT of the abdomen and pelvis as well as all the previous studies were reviewed with Lyn Quintanilla. Essentially, the patient has mild dilatation of the jejunum and ileum, no discrete point of obstruction and then collapsed distal ileum. No other evidence of disease, except for physiologi c dilatation of the biliary system after cholecystectomy. Assessment: Partial small bowel obstruction versus ileus versus motility issues with the patient. Recommendations: I discussed the case in detail with Dr. Michael as well. Continue IV fluids. N.p.o. at this time. Antibiotics. We will get a small bowel series to document whether there is obstructi on or not. If there is no obstruction, then medical management with promotility medication would be the treatment of choice. NELLIE/CHANTELLE Voice ID: [id number] Report ID: [id number]
--- NOTE | 2017-10-30 19:32 | HP ---
Date of Admission: 10/30/2017 Chief Complaint: Abdominal pain. History Of Present Illness: A 72-year-old female was brought to the office with persistent abdominal pain. She was examined and she was found to have diffuse abdominal pain. As it was not clear, the patient was admitted for observation. The patient denied any history of vomiting up blood. No histo ry of fever, chills, or rigors. Past Medical History: The patient recently had an incomplete bowel obstruction for which she had con servative treatment. She has multiple medical problems that include history of diabetes, asthma, hyp othyroidism, congestive heart failure, history of stroke, and bedridden status. Family History: Hypertension present. Personal History: Nonsmoker. Home Medicines: Please refer to the chart. Review of Systems: No fever, chills, rigors. Physical Examination: General: Revealed a 72-year-old female, cachectic. HEENT: Otherwise negative. Neck: Supple. JVD negative. Chest: Occasional wheezes. Heart: Occasional irregularity. Abdomen: Diffuse tenderness. Bowel sounds present. Extremities: Evidence of contractures from previous stroke, otherwise negative. Laboratory Data: CAT scan, evidence of bowel obstruction. CBC; anemia, otherwise negative. Assessment: 1.Recurrent bowel obstruction. 2.Congestive heart failure. 3.Chronic atrial fibrillation. 4.Hypothyroidism. 5.Old cerebrovascular accident with bedridden status. Plan: N.p.o., ROBERT, surgical consultation as done. MARIBETH/CHANTELLE Voice ID: [id number]
[2017-10-30] MEDS ORDERED: RIVAROXABAN 20 MG TABLET PO SCH (21:00)
[2017-10-30] MEDS ORDERED: METOCLOPRAMIDE 5 MG TAB PO SCH (21:00)
[2017-10-30 22:40] VITALS: O2SAT 97
[2017-10-31] MEDS: Morphine 2 MG/2 ML SYR IV PRN ×2 (00:34→04:59)
[2017-10-31 04:45] LABS: Absolute Lymphocytes (CBC) 0.9 K/uL (0.7-4.9); Absolute Monocytes 0.5 K/uL (0.1-1.3); Absolute Neutrophil 3.3 K/uL (1.8-8.0); Basophils % 1.2 % (0-1.3); Eosinophils % 2.1 % (0-4.4); Hematocrit 30.2 % (36.0-45.0); Lymphocytes % 17.9 % (15.3-44.8); MCH 20.8 pg (27.0-35.0); MCV 67.2 fL (80-100); MPV 8.8 fL (7.6-11.3); Monocytes % 10.5 % (3.3-12.3); RBC Red Blood Cell Count 4.49 M/uL (3.86-4.86)
[2017-10-31] MEDS: NACHLORIDE 0.45% 1,000 ML IV SCH ×2 (05:03→16:43)
[2017-10-31 05:24] LABS: BUN Blood Urea Nitrogen 13 mg/dL (6-20); Bicarbonate 26 mEq/L (21-31); Glucose Level 69 mg/dL (65-120); Magnesium 1.6 mg/dL (1.8-2.5); Phosphorus 3.3 mg/dL (2.5-4.3); Potassium 3.6 mEq/L (3.6-5.0); Sodium Level 134 mEq/L (135-145)
[2017-10-31] MEDS ORDERED: AMIODARONE HCL 200 MG TAB PO SCH (09:00)
[2017-10-31] MEDS ORDERED: ATORVASTATIN 40 MG TAB PO SCH (09:00)
[2017-10-31] MEDS: CIPROFLOXACIN 400mg IV 400 MG/200 ML BAG IV SCH ×2 (10:54→20:51)
[2017-10-31] MEDS: MORPHINE 4 MG/ML SYR IV PRN ×2 (10:57→21:32)
--- NOTE | 2017-10-31 11:35 | RAD REPORT ---
EXAM DESCRIPTION: RAD - Small Bowel Series - 10/31/2017 11:23 am CLINICAL HISTORY: Abdominal pain, intermittent small bowel dilatation, possible obstruction COMPARISON: CT imaging October 29 and September 24, small bowel examination September 26 FINDINGS: Chief Diversity Officer film shows contrast in the right-side of the colon from the earlier examination. NG tube is in place with the tip in the body of the stomach. Air-filled, nondilated small bowel loops ar e present. No obstruction pattern on care rep film. No free air or pneumatosis. Gastric size and mucosal fold pattern are normal. No delay in transit of contrast into the small dylan l. Small bowel is normal in diameter with no mucosal fold thickening. No intrinsic or extrinsic mass identifiable. Terminal ileum has normal appearance. Transit time to the colon is 2 hours. IMPRESSION: No small bowel abnormality identified. No dilatation, mucosal thickening or other suspic ious finding. Transit time to the colon was upper normal at 2 hours.
--- NOTE | 2017-10-31 13:43 | PN ---
Date of Progress Note: 10/31/2017 Subjective: The patient is awake, alert. Passing gas. Objective: Vital Signs: Stable. Afebrile. Abdomen: Soft, nondistended, nontender. Positive bowel sounds. Laboratory Data: Small bowel series negative for obstruction. Assessment: Small bowel obstruction, resolved, likely a slow motility issue. Recommendations: We would recommend Raglan or some other promotility drugs. No need for any surgica l intervention at this time. We will discontinue the NG tube and begin the patient on clear liquids. /MODL Voice ID: [id number] Report ID: [id number]
[2017-10-31] MEDS: METOCLOPRAMIDE 5 MG TAB PO SCH ×2 (16:39→20:42)
[2017-10-31] MEDS: AMIODARONE HCL 200 MG TAB PO SCH (20:42)
[2017-10-31] MEDS: ATORVASTATIN 40 MG TAB PO SCH (20:44)
[2017-10-31] MEDS ORDERED: RIVAROXABAN 20 MG TABLET PO SCH (21:00)
[2017-10-31] MEDS: ENSURE CLEAR 200 ML CAN PO SCH (21:00)
--- NOTE | 2017-11-01 01:59 | PN ---
The patient is doing better. Her NG tube is out. Her small bowel x-rays do not show any evidence of organic obstruction. She is started on Reglan with the present diagnosis of motility disorder. The patient will be observed overnight, and if she does okay, she will be discharged home tomorrow. MARIBETH/CHANTELLE Voice ID: [id number] Report ID: [id number]
[2017-11-01] MEDS: NACHLORIDE 0.45% 1,000 ML IV SCH ×2 (03:00→12:25)
[2017-11-01 05:46] LABS: Urine Appearance CLEAR; Urine Bilirubin NEGATIVE (NEG); Urine Blood NEGATIVE (NEG); Urine Color YELLOW; Urine Glucose NEGATIVE (NEG); Urine Protein NEGATIVE (NEG); Urine Specific Gravity <=1.005 (1.005-1.030); Urine Urobilinogen 0.2 mg/dL (0.2-1.0); Urine pH 6.5 (5.0-7.0)
[2017-11-01 05:49] LABS: Urine Microscopic Reflex NO UMIC
[2017-11-01] MEDS: MORPHINE 4 MG/ML SYR IV PRN ×2 (06:41→12:28)
[2017-11-01] MEDS: CIPROFLOXACIN 400mg IV 400 MG/200 ML BAG IV SCH (09:47)
[2017-11-01] MEDS: METOCLOPRAMIDE 5 MG TAB PO SCH ×2 (09:48→12:23)
[2017-11-01] MEDS: AMIODARONE HCL 200 MG TAB PO SCH (09:48)
[2017-11-01] MEDS: ATORVASTATIN 40 MG TAB PO SCH (09:48)
[2017-11-01] MEDS: ENSURE CLEAR 200 ML CAN PO SCH (09:51)
--- NOTE | 2017-11-01 13:26 | PN ---
Date of Progress Note: 11/01/2017 Subjective: The patient is awake, alert, minimal pain, tolerating liquids. Objective: Vital signs: Stable, afebrile. Abdomen: No peritonitis. Assessment: Motility disorder in the intestine. Recommendation: Medical management and possible GI consultation as an outpatient. /MODL Voice ID: [id number] Report ID: [id number]
[2017-11-01 17:57] VITALS: BP 153/70; TEMP 98
--- NOTE | 2017-12-22 17:09 | DS ---
Date of Discharge: 11/01/2017 Final Diagnoses: 1.Bowel obstruction. 2.Decreased intestinal motility. 3.Congestive heart failure, compensated. 4.Chronic atrial fibrillation. 5.Hypothyroidism. 6.Old cerebrovascular accident with bedridden status. 7.History of asthma. Hospital Course: This patient was brought to the office because of abdominal pain. The patient had evidence of small bowel obstruction in the past, which was incomplete. In view of that, the patient was admitted for observation. There was no history of fever, chills, rigors, or any other systemic s ymptoms. After admission to the hospital, the patient had CAT scan done, which again showed possibil ity of obstruction. Surgical consultation was obtained. Based on previous experience and considerat ion of the patient's status, the patient had a barium small bowel series. This showed delayed transi t; however, there was no physical obstruction. At this point, the patient was started on Reglan and as she was doing okay, she was discharged home to have follow up in the office. Laboratory Data: Please refer to the chart. MARIBETH/CHANTELLE Voice ID: [id number] Report ID: [id number]
== END 2017-11-01 17:01 | disposition home or self-care (01) | DRG 389 ==
LOC: 2ND 14:51 → OBSVTOIN 10-30 08:01
PROVIDERS: ADMIT Internal Medicine; ATTEND Internal Medicine
DX: K56.600 Partial intestinal obstruction, unspecified as to cause (principal); I69.954 Hemiplegia and hemiparesis following unspecified cerebrovascular disease affecting left non-dominant side; K59.8 Other specified functional intestinal disorders; I50.9 Heart failure, unspecified; I48.2 Chronic atrial fibrillation; E03.9 Hypothyroidism, unspecified; Z74.01 Bed confinement status; Z88.0 Allergy status to penicillin
CPT/HCPCS: 36415; 74177; 74250; 80048; 80053; 81003; 82150; 83690; 83735; 84100; 85025; J0744; J2270; Q9967

== ENCOUNTER 2020-03-27 13:28 | Inpatient (IN) | payer OTHER ==
--- OUTSIDE RECORDS SUMMARY | 2020-03-27 13:34 | XMS REPORT | Continuity of Care Document ---
:1945 Author Organization [employer] Care Team Providers Name Role Phone [employer] Unavailable Un available Problems Problem Status Onset Classification Date Comments Sourc e Date Reported 600 UNITS Active 12/01/19 [facility] 16 F/U Active 11/04/19 [facility] 16 F/U 3 MONTHS Active 08/05/19 [facility] 16 FLUORO GUIDED LEFT Active 07/06/19 [facility] GENICULAR RFA WITH 16 CO PROCEDURE Active 06/27/19 [facility] 16 NEW PT EVAL Active 06/13/19 [facility] 16 DC F/U Active 05/18/20 [facility] 15 DECONDITION Active 02/18/20 [facility] 15 SYNCOPE, Active 02/15/20 [facility] CVA Active 05/27/[address], [facility] Atrial Resolved Problem 02/20/2016 [facility] fibrillation [facility] (disorder) [place], [facility] Cerebral Active Problem 02/20/2016 [facility] infarction [facility] (disorder) [place], [facility] 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/2016 [facility] failure (disorder) Cerebrovascular Resolved Problem 02/20/2016 [facility] accident [facility] (disorder) [place], [facility] Diabetes mellitus Resolved Problem 02/20/2016 [facility] (disorder) [facility], [facility] Dysphagia Active Problem 02/20/2016 [facility] (disorder) [facility], [facility] Hemiplegia Active Problem 02/20/2016 [facility] (disorder) Hypertensive Active Problem 02/20/2016 [place] disorder, systemic edical arterial Center, (disorder) [facility] Seizure (finding) Active Problem 02/20/2016 [facility], [facility] Final: 03/06/2015 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 Active MH [facility] LOSS OF CONSCIOUSNESS, I Medications Medication Details Route Status Patient Ordering Order Source Instructions Provider Date duloxetine 60 MG 60 mg = 1 cap, Active 02/16/ [facility] Enteric Coated PO, Daily, # 30 2016 Capsule [Cymbalta] cap, 3 Refill(s), Pharmacy: [facility] [id number] duloxetine 30 MG 30 mg = 1 cap, Active 11/03/ [facility] Enteric Coated PO, Bedtime, 2015 Capsule [Cymbalta] Pls start taking it once you run out of Lyrica, # 30 cap, 3 Refill(s), Pharmacy: [facility] [id number] incobotulinumtoxin 600 unit, Inactive [facility] A Route: IM, 2016 ONCALL, Dosing Weight 53.182, kg, Start date: 09/23/15 16:00:00 CDT sertraline 25 mg 25 mg = 1 tab, Active 08/04/ [facility] oral tablet PO, Daily, # 30 2016 tab, 1 Refill(s), [facility] [id number] lisinopril 20 mg 20 mg = 1 tab, Active [facility] oral tablet PO, BID, # 60 2016 tab, 0 Refill(s), [facility] [id number] Senna-gen 8.6 mg 8.6 mg = 1 tab, Active 08/04[facility] oral tablet PO, Bedtime, 2016 PRN for constipation, # 100 tab, 0 Refill(s) Romazicon Notes: (Same Active [facility] as: Romazicon) 2015 naloxone Notes: Same as No Longer [facility] Narcan Active 2015 Sublimaze Notes: (Same Active [facility] as: Sublimaze) 2015 Preservative free. midazolam Notes: (Same Active [facility] as: Versed) 2015 MEDICATION WASTE Product Size: 2 mg Product Wasted: ___ mg Sodium Chloride IV, 50 ml/hr, Inactive H [facility] 0.9% IV ONCE, Start 2015 date: 07/18/15 11:00:00, 250 ml DepoMedrol Notes: Inactive [facility] (methylpredniso 2016 lone acetate 40 mg/1 ml INJ VL) (Same as:Depo-Medrol) For IM use only. lidocaine Notes: (Same Inactive [facility] as: Xylocaine) 2015 levofloxacin 500 mg 500 mg = 1 tab, Active [facility] oral tablet PO, Daily, # 7 2016 tab, 0 Refill(s) Omnipaque 300 Notes: (Same Inactive [facility] as:Omnipaque 2015 300). WASTE: F/P - Black; E - [employer] Sensorcaine-MPF Notes: Inactive [facility] Preservative 2015 free. (Same As: Marcaine-MPF, Sensorcaine-MPF ) lidocaine Notes: (Same Inactive [facility] as: Xylocaine) 2015 incobotulinumtoxin 600 unit, Inactive [facility] A Route: IM, 2016 ONCALL, Dosing Weight 48.409, kg, Start date: 06/13/15 15:00:00 Diclofenac Sodium 2 gm, TOP, QID, Active [facility] 0.01 MG/MG Topical PRN Pain Score 2015 Gel [Voltaren] 1-5, Apply to L knee. Do not to exceed 32 grams/day., # 100 gm, 0 Refill(s) pregabalin 25 mg 25 mg = 1 cap, Active [facility] oral capsule PO, Q12H, # 60 2014 cap, 0 Refill(s) Levetiracetam 500 500 mg = 1 tab, Active [facility] MG Oral Tablet PO, Q12H, # 60 2014 [Keppra] tab, 1 Refill(s) senna 8.6 mg oral 8.6 mg = 1 tab, Active [facility] tablet PO, Bedtime, X 2015 30 day, # 30 tab, 1 Refill(s) rivaroxaban 20 MG 20 mg = 1 tab, Active [facility] Oral Tablet PO, QPM, # 30 2014 [Xarelto] tab, 1 Refill(s) pregabalin 25 mg 25 mg = 1 cap, Inactive [facility] oral capsule PO, Q12H, # 60 2014 cap, 0 Refill(s) pantoprazole 40 mg 40 mg = 1 tab, Active [facility] oral enteric coated PO, BID-Before 2014 tablet Meals, # 60 tab, 1 Refill(s) lisinopril 20 mg 40 mg = 2 tab, Active [facility] oral tablet PO, Daily, # 60 2014 tab, 1 Refill(s) Docusate Sodium 100 100 mg = 1 cap, Active 03/27 [facility] MG Oral Capsule PO, BID, # 60 2014 [Colace] cap, 1 Refill(s) atorvastatin 80 MG 80 mg = 1 tab, Active [facility] Oral Tablet PO, Bedtime, # 2015 [Lipitor] 30 tab, 1 Refill(s) Aspirin 81 MG 81 mg = 1 tab, Inactive [facility] Enteric Coated PO, Daily, # 30 2014 Tablet tab, 1 Refill(s) amLODIPine 10 mg 10 mg = 1 tab, Active [facility] oral tablet PO, Daily, # 30 2014 tab, 1 Refill(s) AMIODarone 200 mg 200 mg = 1 tab, Active [facility] oral tablet PO, Daily, # 30 2014 tab, 1 Refill(s) carvedilol 6.25 mg 6.25 mg = 1 Active H [facility] oral tablet tab, PO, Q12H, 2014 # 60 tab, 1 Refill(s) amLODIPine 10 mg 10 mg = 1 tab, No Longer [facility] oral tablet PO, Daily, 0 2014 Refill(s) carvedilol 6.25 mg 6.25 mg = 1 No Longer [facility] oral tablet tab, PO, Q12H, 2014 0 Refill(s) pantoprazole 40 mg 40 mg = 1 tab, No Longer [facility] oral enteric coated PO, BID-Before Active 2014 tablet Meals, 0 Refill(s) pregabalin 25 mg 25 mg = 1 cap, No Longer [facility] oral capsule PO, Q12H, 0 Active 2014 Refill(s) Flagyl Notes: (Same No Longer [facility] as: Flagyl) Active 2014 Take with food/ avoid alcohol Flagyl Notes: (Same Inactive [facility] as: Flagyl) 2014 Take with food/ avoid alcohol Diclofenac Sodium Notes: Same as: No Longer [facility] 0.01 MG/MG Topical Voltaren Gel Active 2014 Gel [Voltaren] Non-Formulary Item Lyrica Notes: (Same No Longer [facility] as: Lyrica) Active 2014 Lidocaine Notes: Apply No Longer [facility] Hydrochloride 0.05 only once for Active 2015 MG/MG Transdermal up to 12 hours Patch [Lidoderm] in a 24-hour period (12 hours on and 12 hours off). (Same as: Lidoderm) "Remove old patch before application of new patch" Diclofenac Sodium Notes: Same as: No Longer [facility] 0.01 MG/MG Topical Voltaren Gel Active 2014 Gel [Voltaren] Non-Formulary Item incobotulinumtoxin Notes: No Longer [facility] A Non-Formulary Active 2014 phenol 6% AQ in 20 mL, Route: No Longer [facility] water for injection NERVE BLOCK, Active 2014 Drug Form: INJ, Dosing Weight 49.602, kg, ONCALL, Start date: 03/28/15 15:00:00, Duration: 30 day, Stop date: 04/27/15 14:59:00 bismuth Notes: Same as No Longer [facility] subsalicylate Pepto-Bismol MS Active 2014 Flagyl Notes: (Same No Longer [facility] as: Flagyl) Active 2014 Take with food/ avoid alcohol Doxycycline Notes: NO No Longer [facility] MILK/ANTACIDS/I Active 2014 MAI Take 1 hour before or 2 hours after dairy products senna 8.6 mg oral Notes: (Same No Longer [facility] tablet as: Senokot) Active 2014 Neurontin Notes: (Same No Longer [facility] as: Neurontin) Active 2014 normal saline 0.9% 1,000 mL, Rate: No Longer [facility] IV 1,000 mL 75 ml/hr, Active 2014 Infuse over: 13.3 hr, Route: IV, Dosing Weight 49.602 kg, Total Volume: 1,000, Start date: 03/21/15 16:02:00, Duration: 1 day, Stop date: 03/22/15 16:01:00 Sodium Chloride 500 mL, 500 Inactive [facility] 0.154 MEQ/ML ml/hr, Infuse 2015 Injectable Solution Over: 1 hr, Route: IV, ONCE, Priority: STAT, Dosing Weight 49.602 kg, Start date: 03/21/15 15:33:00, Duration: 1 doses or times, Stop date: 03/21/15 15:33:00 Dulcolax Laxative Notes: (Same Inactive [facility] As: Dulcolax, 2014 Bisco-Lax) Coreg Notes: Give No Longer [facility] with food. Active 2014 (Same As: Coreg) Milk of Magnesia Notes: (Same No Longer [facility] as: Milk of Active 2014 Magnesia, MOM) Metformin Notes: (Same No Longer [facility] hydrochloride 500 as: Glucophage) Active 2015 MG Oral Tablet Take with meal senna 8.6 mg oral Notes: (Same No Longer [facility] tablet as: Senokot) Active 2014 Fleet Enema 12 years, Inactive [facility] Pediatric 2015 Dosing Milk of Magnesia Notes: (Same No Longer [facility] as: Milk of Active 2014 Magnesia, MOM) Amlodipine Notes: (Same No Longer [facility] as: Norvasc) Active 2014 gabapentin 100 MG Notes: (Same No Longer [facility] Oral Capsule as: Neurontin) Active 2014 Neurontin Notes: (Same No Longer [facility] as: Neurontin) Active 2014 Protonix Notes: Tablet No Longer [facility] should not be Active 2014 chewed or crushed. (Same as: Protonix) Phenergan Notes: (Same No Longer [facility] as: Phenergan) Active 2014 Zofran 4 mg, Route: Inactive [facility] IV, Drug form: 2015 INJ, Q8H, Dosing Weight 49.602, kg, PRN Nausea, Start date: 03/17/15 14:23:00, Duration: 30 day, Stop date: 04/16/15 14:22:00 Neurontin 100 mg, Route: Inactive [facility] PO, Drug form: 2014 CAP, TID, Start date: 03/17/15 13:00:00, Stop date: 04/16/15 8:30:00 Amlodipine Notes: (Same Inactive [facility] as: Norvasc) 2014 Ceftriaxone 500 mg, Route: Inactive [facility] PO, Q12H, 2014 Dosing Weight 49.602, kg, please monitor pt for rash, edema, nausea, vomiting, Start date: 03/16/15 21:00:00, Duration: 3 day, Stop date: 03/19/15 9:00:00 cefuroxime 250 mg Notes: (Do Not No Longer 03/16 [facility] oral tablet Crush) With Active 2014 food. (Same As: Ceftin) Hydralazine Notes: (Same No Longer [facility] as: Apresoline) Active 2014 May interfere w/enteral feedings Take With Food. Dulcolax Laxative Notes: (Same No Longer [facility] As: Dulcolax, Active 2014 Bisco-Lax) Hydralazine Notes: (Same Inactive [facility] as: Apresoline) 2014 May interfere w/enteral feedings Take With Food. Protonix Notes: Tablet No Longer [facility] should not be Active 2014 chewed or crushed. (Same as: Protonix) Amlodipine Notes: (Same No Longer [facility] as: Norvasc) Active 2014 Hydralazine Notes: (Same No Longer [facility] as: Apresoline) Active 2014 May interfere w/enteral feedings Take With Food. Sulfamethoxazole Notes: One DS No Longer [facility] 800 MG / tablet = Active 2014 Trimethoprim 160 MG trimethoprim Oral Tablet 160mg + [Bactrim] sulfamethoxazol e 800 mg Dose based on trimethoprim component On empty stomach with a glass of water. 1 hr before meals (Same As: Bactrim DS, Septra DS) Hydralazine Notes: (Same Inactive [facility] as: Apresoline) 2014 May interfere w/enteral feedings Take With Food. Sodium Chloride 1,000 mL, Rate: No Longer [facility] 0.9% IV 1,000 mL 50 ml/hr, Active 2014 Infuse over: 20 hr, Route: IV, Dosing Weight 49.602 kg, Total Volume: 1,000, Start date: 03/12/15 5:06:00, Stop date: 04/11/15 5:05:00 remove patch Notes: Remove No Longer [facility] patch 12 hours Active 2014 after application each day. metoprolol tartrate Notes: (Same No Longer 03/12 [facility] as: Lopressor) Active 2014 Lipitor Notes: (Same No Longer [facility] as: Lipitor) Active 2014 Hydralazine 25 mg, Route: Inactive [facility] PO, Drug form: 2015 TAB, BID, Dosing Weight 49.602, kg, Start date: 03/11/15 21:00:00, Duration: 30 day, Stop date: 04/10/15 8:30:00 Neurontin Notes: (Same No Longer [facility] as: Neurontin) Active 2014 senna 8.6 mg oral Notes: (Same No Longer [facility] tablet as: Senokot) Active 2014 Hydralazine Notes: (Same No Longer [facility] Hydrochloride 25 MG as: Apresoline) Active 2014 Oral Tablet May interfere w/enteral feedings Take With Food. Hydralazine 50 mg, 1 tab, Inactive [facility] Hydrochloride 50 MG Route: PO, QPM, 2014 Oral Tablet Dosing Weight 49.602, kg, Start date: 03/11/15 17:00:00, Duration: 30 day, Stop date: 04/09/15 17:00:00 Xarelto Notes: (Same No Longer [facility] as: Xarelto) Do Active 2014 Not Crush NS 1,000 mL 1,000 mL, Rate: No Longer [facility] 50 ml/hr, Active 2014 Infuse over: 20 hr, Route: IV, Dosing Weight 49.602 kg, Total Volume: 1,000, Start date: 03/11/15 14:49:00, Duration: 30 day, Stop date: 04/10/15 14:48:00 gabapentin 300 MG 200 mg, Route: Inactive [facility] Oral Capsule PO, Drug form: 2015 CAP, TID, Dosing Weight 63.7, kg, Start date: 03/11/15 13:00:00, Duration: 30 day, Stop date: 04/10/15 8:30:00 Sodium Chloride 300 mL, Rate: Inactive [facility] 0.9% IV 300 mL 600 ml/hr, 2015 Infuse over: 0.5 hr, Route: IV, Dosing Weight 49.602 kg, Total Volume: 300, Start date: 03/11/15 12:22:00, Duration: 1 doses or times, Stop date: 03/11/15 12:51:00 Sodium Chloride 1,000 mL, 1,000 Inactive [facility] 0.154 MEQ/ML ml/hr, Infuse 2015 Injectable Solution Over: 1 hr, Route: IV, ONCE, Priority: STAT, Dosing Weight 49.602 kg, Start date: 03/11/15 11:45:00, Duration: 1 doses or times, Stop date: 03/11/15 11:45:00 Clonidine Notes: (Same Inactive [facility] Hydrochloride 0.1 As: Catapres) 2015 MG Oral Tablet Keppra Notes: (Same No Longer [facility] as:Keppra) Active 2014 Levemir Notes: Same as No Longer [facility] Levemir Do not Active 2014 hold insulin without contacting prescriber "single patient use only" Docusate Sodium 100 Notes: (Same No Longer 03/11 [facility] MG Oral Capsule as: Colace) (Do Active 2014 [Colace] Not Crush) Aspirin 81 MG Notes: Do not No Longer [facility] Enteric Coated crush or chew. Active 2014 Tablet (Same As: Ecotrin) Amiodarone Notes: (Same No Longer [facility] as: Cordarone) Active 2014 metoprolol tartrate Notes: (Same Inactive [facility] as: Lopressor) 2014 Lisinopril Notes: (Same No Longer [facility] as: Prinivil, Active 2014 Zestril) Lidocaine Notes: Apply No Longer [facility] Hydrochloride 0.05 only once for Active 2015 MG/MG Transdermal up to 12 hours Patch [Lidoderm] in a 24-hour period (12 hours on and 12 hours off). (Same as: Lidoderm) "Remove old patch before application of new patch" gabapentin 300 MG Notes: (Same Inactive [facility] Oral Capsule as: Neurontin) 2014 Hydralazine Notes: (Same Inactive [facility] as: Apresoline) 2015 May interfere w/enteral feedings Take With Food. Dextrose 50% 25 gm, 50 mL, No Longer [facility] Syringe Route: IVP, Active 2014 Drug Form: INJ, Dosing Weight 49.602, kg, PRN, PRN Blood Glucose Results, Start date: 03/10/15 23:50:00, Stop date: 05/09/15 22:49:00 Glucagon 1 mg, Route: No Longer [facility] IM, Drug form: Active 2014 PDR/INJ, PRN, Dosing Weight 49.602, kg, PRN Blood Glucose Results, Start date: 03/10/15 23:50:00, Stop date: 05/09/15 22:49:00 Insulin, Aspart, Notes: Roll in No Longer [facility] Human palms of hands Active 2014 gently; Do not shake vigorously. (Same as: NovoLOG) "single patient use only" Stable for 28 days at room temperature. Expires in days from D ate Acetaminophen 325 Notes: Do not No Longer [facility] MG / Hydrocodone exceed 4gm/day Active 2014 Bitartrate 10 MG of Oral Tablet acetaminophen. (Same as: Sulligent 325/10) Lorazepam Notes: (Same No Longer [facility] as: Ativan) Active 2014 Phenytoin Notes: (Same No Longer [facility] as: Dilantin) Active 2014 Concentration = 50mg/ml Do NOT infuse faster than 50 mg/min MEDICATION WASTE Product Size: 250 mg Product Wasted: _6__ mg Phenobarbital Notes: (Same No Longer [facility] as: Barbita) Active 2014 Acetaminophen 325 Notes: (Same No Longer [facility] MG / Hydrocodone as: Sulligent Active 2014 Bitartrate 5 MG 325/5) Do not Oral Tablet exceed 4gm/day of acetaminophen. Acetaminophen Notes: Do not No Longer [facility] exceed 4 Active 2014 gm/day. (Same as: Tylenol) Saline Flush 0.9% Notes: (Same No Longer [facility] as: BD Active 2014 Posiflush) senna 8.6 mg oral 8.6 mg = 1 tab, Active [place] tablet PO, Bedtime, 0 2014 Medical Refill(s) Center Regular Insulin, 5 unit, SUB-Q, Active [place] Human 100 UNT/ML TID-Before 2014 [facility] Injectable Solution Meals, PRN C enter Blood Glucose Results, 0 Refill(s) Clonidine 0.1 mg = 1 tab, Active [place] as Hydrochloride 0.1 PO, Q12H, 0 2014 Me dical MG Oral Tablet Refill(s) Center Docusate Sodium 100 100 mg = 1 cap, Active [facility] MG Oral Capsule PO, BID, 0 2014 Medic al [Colace] Refill(s) Center lisinopril 20 mg 40 mg = 2 tab, Active [facility] oral tablet PO, Daily, 0 2014 Medical Refill(s) Center Hydralazine PO, Q8H, 0 Active [place] Hydrochloride 50 MG Refill(s) 2015 Me dical Oral Tablet Center Hydralazine Notes: (Same No Longer [place] Hydrochloride 25 MG as: Apresoline) Active 2014 Medical Oral Tablet May interfere Cente r w/enteral feedings Take With Food cloNIDine 0.1 mg Notes: (Same No Longer [facility] oral tablet As: Catapres) Active 2014 Medica l Center Docusate Sodium 100 Notes: (Same No Longer 02/19 [facility] MG Oral Capsule as: Colace) (Do Active 2014 Medical [Colace] Not Crush) Center senna 8.6 mg oral Notes: (Same No Longer [facility] tablet as: Senokot) Active 2014 Medical Center Bisacodyl Notes: (Same No Longer [place] As: Dulcolax, Active 2014 Medical Bisco-Lax) Center Prinivil Notes: (Same No Longer [place] as: Prinivil, Active 2014 Medical Zestril) [place] influenza virus Notes: (Same Inactive [place] vaccine, as: Fluzone 2014 [facility] inactivated Quadrivalent) Center For 3 years of age and older (0.5 mL IM) Shake well before use Lisinopril 5 mg, Route: Inactive [place] PO, Drug form: 2014 Medical TAB, Daily, Center Dosing Weight 63.7, kg, Start date: 02/19/15 9:00:00, Duration: 30 day, Stop date: 03/20/15 9:00:00 metoprolol tartrate 25 mg = 1 tab, No Longer [place] 25 mg oral tablet PO, Q12H, # 60 Active 2014 Medical tab, 0 Center Refill(s), other Levetiracetam 500 500 mg = 1 tab, Active [place] MG Oral Tablet PO, Q12H, # 60 2015 Me dical [Keppra] tab, 0 Center Refill(s), other Sulfamethoxazole 1 tab, PO, No Longer [place] 800 MG / [id number], X 4 Active 2014 Medical Trimethoprim 160 MG day, # 8 tab, 0 Center Oral Tablet Refill(s), [Bactrim] other Lisinopril Notes: (Same No Longer [facility] as as: Prinivil, Active 2014 Medical Zestril) [place] Levetiracetam 500 Notes: (Same No Longer [place] MG Oral Tablet as:Keppra) Active 2014 Medica l [Keppra] Center metoprolol tartrate Notes: (Same No Longer 02/17 [place] as: Lopressor) Active 2014 Medical Compounded Center Product - formulation not commercially available gabapentin 300 MG Notes: (Same No Longer [place] Oral Capsule as: Neurontin) Active 2014 [facility] Sulfamethoxazole Notes: One DS No Longer [place] 800 MG / tablet = Active 2014 Medical Trimethoprim 160 MG trimethoprim Center Oral Tablet 160mg + [Bactrim] sulfamethoxazol e 800 mg Dose based on trimethoprim component On empty stomach with a glass of water. 1 hr before meals (Same As: Bactrim DS, Septra DS) Morphine Notes: (Same No Longer [place] as:MORPhine Active 2014 Medical Sulfate) Center Zofran Notes: (Same No Longer [place] as: Zofran) Active 2014 Medical MEDICATION Center WASTE Product Size: 4 mg Product Wasted: ___ mg Milk of Magnesia Notes: (Same No Longer [place] as: Milk of Active 2014 Medical Magnesia, MOM) Center Clonidine Notes: (Same No Longer [facility] Hydrochloride 0.1 As: Catapres) Active 2014 Medical MG Oral Tablet Center cloNIDine 0.1 mg Notes: (Same No Longer [place] oral tablet As: Catapres) Active 2014 Medica l Center aspirin 81 mg Notes: Do not No Longer [place] tablet, enteric crush or chew. Active 2014 M edical coated (Same As: [place] Ecotrin) Cordarone Notes: (Same No Longer [facility] as: Cordarone) Active 2014 Medical [place] Morphine Notes: (Same Inactive [place] as:MORPhine 2014 Medical Sulfate) [place] Tylenol Notes: Max Inactive [place] acetaminophen = 2015 Medical 4000 mg/day (4 Center gm/day). (Same as: Tylenol) tramadol 50 mg, 1 tab, No Longer [facility] hydrochloride 50 MG Route: PO, Drug Active 2014 Medical Oral Tablet form: TAB, Q6H, Cent er [Ultram] Dosing Weight 63.727, kg, PRN Pain Score 1-3, Start date: 02/16/15 10:59:00, Duration: 30 day, Stop date: 03/18/15 10:58:00 Lipitor Notes: (Same No Longer [place] as: Lipitor) Active 2014 Medical Center remove patch Notes: Remove No Longer [place] patch 12 hours Active 2014 [facility] after [place] application each day. Keppra Notes: Same as No Longer [facility] Keppra Mix Active 2014 Medical with 100 mL NS, Center LR or D5W MEDICATION WASTE Product Size: 500 mg Product Wasted: ___ mg gabapentin 300 MG 300 mg = 1 cap, Active [place] Oral Capsule PO, BID 2015 Medical Center metoprolol tartrate 100 mg = 1 tab, No Longer [place] 100 mg oral tablet PO, BID Active 2014 Medic al Center Milk of Magnesia 30 mL, PO, No Longer [facility] Daily, PRN as Active 2014 Medical needed for Center constipation lisinopril 10 mg 10 mg = 1 tab, No Longer [place] oral tablet PO, Daily Active 2014 Medical Center Clonidine 100 No Longer [place] Hydrochloride 0.1 Active 2014 Medica l MG Oral Tablet Center Acetaminophen Special Active [place] Instructions: 2015 Medical suppository PRN Center mild pain or fever greater than 100.1F Lidocaine Special Active [facility] Hydrochloride 0.05 Instructions: 2015 Medical MG/MG Transdermal Apply to lower Center Patch [Lidoderm] back and left knee tramadol 50 mg = 1 tab, Active [facility] hydrochloride 50 MG PO, Q6H, PRN 2015 Medical Oral Tablet Pain Center Acetaminophen 325 650 mg = 2 tab, Active [place] MG Oral Tablet PO, Q6H, PRN 2015 Medi [place] [Tylenol] Pain Center insulin detemir 100 10 unit, SUB-Q, Active 01/26 [place] UNT/ML Injectable Daily 2015 Medica l Solution [Levemir] Cente r Hydralazine Notes: (Same [place] Longer [place] as: Apresoline) Active 2014 Medical Push over 5 Center minutes Xarelto Notes: (Same No Longer [facility] as: Xarelto) Active 2014 Medical Administer with Center food potassium chloride Notes: (Same Inactive [facility] as: K-Dur 20) 2015 Medical "Do Not Crush" Center With food and full glass of water Levetiracetam 500 500 mg, Route: Inactive [place] MG Oral Tablet IV, Q12H, kg, 2015 Med ical [Keppra] Start date: Center 02/15/15 9:00:00, Duration: 30 day, Stop date: 03/16/15 21:00:00 Lidocaine Notes: Apply No Longer [place] Hydrochloride 0.05 only once for Active 2014 Medical MG/MG Transdermal up to 12 hours Center Patch [Lidoderm] in a 24-hour period (12 hours on and 12 hours off). (Same as: Lidoderm) "Remove old patch before application of new patch" Aspirin 81 MG Notes: Do not No Longer [place] Enteric Coated crush or chew. Active 2014 [place] dical Tablet (Same As: [place] Ecotrin) Amiodarone Notes: (Same No Longer [place] as as: Cordarone) Active 2014 [facility] Ciprofloxacin Notes: Do not No Longer [place] refrigerate Active 2014 [facility] Hydralazine Notes: (Same [place] Longer [place] Hydrochloride 10 MG as: Apresoline) Active 2014 Medical Oral Tablet May interfere Cente r w/enteral feedings. Take With Food Clonidine Notes: (Same No Longer [place] Hydrochloride 0.1 As: Catapres) Active 2014 Medical MG Oral Tablet [place] tramadol Notes: Not to No Longer [place] hydrochloride 50 MG exceed Active 2014 Medi [place] Oral Tablet 400mg/day. Center (Same As: [facility]) Insulin regular 60 units) No Longer [place] Stable for 28 Active 2014 Medical days at room Center temperature Expires in days from D ate Glucagon 1 mg, Route: No Longer [place] IM, Drug form: Active 2014 Medical PDR/INJ, PRN, [place] Dosing Weight 63.727, kg, PRN Blood Glucose Results, Start date: 02/15/15 2:09:00, Duration: 30 day, Stop date: 03/17/15 2:08:00 Dextrose 50% 25 gm, 50 mL, No Longer [place] Syringe Route: IVP, Active 2014 Medical Drug Form: INJ, [place] Dosing Weight 63.727, kg, PRN, PRN Blood Glucose Results, Start date: 02/15/15 2:09:00, Duration: 30 day, Stop date: 03/17/15 2:08:00 Aspirin 81 MG 81 mg = 1 tab, Active [place] [facility] PO, Daily, # 90 2015 M edical Tablet tab, 3 Center Refill(s) rivaroxaban 20 MG 20 mg = 1 tab, Active [place] Oral Tablet PO, QPM, # 30 2015 Medica l [Xarelto] tab, 3 Center Refill(s) Lidocaine 1 patch, TOP, # Inactive [place] Hydrochloride 0.05 30 patch, 0 2015 M edical MG/MG Transdermal Refill(s) Cent er Patch [Lidoderm] Lopressor 100 mg, PO, Inactive [facility] Daily, 0 2014 Medical Refill(s) Center atorvastatin 80 MG 80 mg = 1 tab, Active [facility] Oral Tablet PO, Bedtime, 0 2015 Medic al [Lipitor] Refill(s) Center Acetaminophen 650 mg, PO, Inactive [place] Q6H, 0 2014 Medical Refill(s) Center AMIODarone 200 mg 200 mg = 1 tab, Active [facility] oral tablet PO, Daily, 0 2015 Medical Refill(s) Center Levemir SUB-Q, 0 Inactive [facility] Refill(s) 2015 Medical Center Clonidine 0.1 mg = 1 tab, [place] Hydrochloride 0.1 PO, Daily, 0 2015 edical MG Oral Tablet Refill(s) Center Hydrochlorothiazide 25 mg, PO, No Longer [facility] Daily, 0 Active 2014 Medical Refill(s) Center Enoxaparin Notes: (Same [place] as: Lovenox) 2014 Medical Center D5NS 1,000 mL 1,000 mL, Rate: No Longer [facility] 60 ml/hr, Active 2014 Medical Infuse over: Center 16.7 hr, Route: IV, Total Volume: 1,000, Start date: 02/14/15 22:08:00, Stop date: 03/16/15 22:07:00 Dextrose 50% 25 gm, 50 mL, Inactive [place] Syringe Route: IVP, 2014 Medical Drug Form: INJ, Center kg, ONCE, Start date: 02/14/15 22:02:00, Stop date: 02/14/15 22:02:00 [place] Notes: Same as Inactive [facility] Keppra Mix 2014 Medical with 100 mL NS, Center LR or D5W MEDICATION WASTE Product Size: 500 mg Product Wasted: ___ mg Levetiracetam 500 Notes: (Same No Longer [place] MG Oral Tablet as:Keppra) Active 2014 Medica l [Keppra] Center Glucagon 3 mg, Route: Inactive [place] IV, ONCE, kg, 2014 Medical Start date: Center 02/14/15 15:52:00, Stop date: 02/14/15 15:52:00 NS 1,000 mL 1,000 mL, Rate: No Longer [place] 40 ml/hr, Active 2014 Medical Infuse over: 25 Center hr, Route: IV, Total Volume: 1,000, Start date: 02/14/15 15:47:00, Duration: 30 day, Stop date: 03/16/15 15:46:00 Allergies, Adverse Reactions, Alerts Substance Category Reaction Severity Reaction Status Date Comments S ource type Reported codeine Assertion Drug Active [facility] R allergy penicillins Assertion Drug Active [facility] allergy Immunizations Immunization Date Site Status Last Updated Comments Sour ce Given influenza virus Left completed [place] vaccine, 5 deltoid [facility] Center,M H [facility] tuberculin completed [place] Result Comment : patient refused. said she had it at the [facility] 1 month ago. [facility] purified protein 5 Result Commen t: patient refused. derivative<sup>1, 2</sup> Results Order Name Results Value Reference Date Interpretation Comments Julia rce Range URINE CHEM Time total 06/06 [facility] time 40min URINE CHEM Time 1435 05/25 [facility] URINE CHEM Time 1443 05/25 [facility] URINE CHEM Time 1448 05/25 [facility] URINE CHEM Time 1429 05/25 [facility] URINE CHEM Time 1423 05/25 [facility] URINE CHEM Time 1400 05/25 [facility] URINE CHEM Time 1418 05/25 [facility] URINE AND Occult Bld Negative Negative 04/08 [facility] STOOL Stl (04/08/15 6:06 AM) CHEM PANEL eGFR 96 04/04 Result [facility] Comment: The eGFR is calculated using the CKD-EPI formula. In most young, healthy individuals the eGFR will be >90 mL/min/1.73m2 . The eGFR declines with age. An eGFR of 60-89 may be normal in some populations, particularly the elderly, for whom the CKD-EPI formula has not been extensively validated. Use of the eGFR is not recommended in the following populations:< br/>
Floresita viduals with unstable creatinine concentration s, including patients and those with serious co-morbid conditions.<b r/>
Patie nts with extremes in muscle mass or diet.

The data above are obtained from the National Kidney Disease Education Program (NKDEP) which additionally recommends that when the eGFR is used in patients with extremes of body mass index for purposes of drug dosing, the eGFR should be multiplied by the estimated BMI. CHEM PANEL CO2 27 24 - 32 04/04 [facility] CHEM PANEL Chloride Lvl 105 95 - 109 04/04 [facility] CHEM PANEL Calcium Lvl 8.5 8.5 - 10.5 04/04 [facility] CHEM PANEL Glucose Lvl 94 70 - 99 04/04 [facility] CHEM PANEL Creatinine 0.54 0.50 - 04/04 [facility] Lvl 1.40 CHEM PANEL BUN 19 7 - 22 04/04 [facility] CHEM PANEL Sodium Lvl 140 135 - 145 04/04 [facility] CHEM PANEL Potassium Lvl 3.7 3.5 - 5.1 04/04 [facility] CHEM PANEL AGAP 11.7 10.0 - 04/04 [facility] 20.0 /2014 HEMATOLOGY Eosinophils 6.1 0.0 - 4.0 04/04 [facility] HEMATOLOGY Monocytes 9.0 2.0 - 12.0 04/04 [facility] HEMATOLOGY Segs-Bands # 3.9 1.5 - 8.1 04/04 [facility] HEMATOLOGY Lymphocytes # 2.1 1.0 - 5.5 04/04 [facility] HEMATOLOGY Monocytes # 0.6 0.0 - 0.8 04/04 [facility] HEMATOLOGY Eosinophils # 0.4 0.0 - 0.5 04/04 [facility] HEMATOLOGY Basophils # 0.1 0.0 - 0.2 04/04 [facility] HEMATOLOGY Basophils 0.8 0.0 - 1.0 04/04 [facility] HEMATOLOGY Segs 53.9 45.0 - 11 [facility] 75.0 /2015 HEMATOLOGY Lymphocytes 30.2 20.0 - 11 MH [facility] 40.0 /2014 HEMATOLOGY Platelet 241 133 - 450 11 [facility] /2014 HEMATOLOGY MPV 9.7 7.4 - 10.4 11 [facility] /2014 HEMATOLOGY MCHC 30.9 32.0 - 11 Result [facility] 36.0 /2014 Comment: Rechecked. HEMATOLOGY MCH 24.6 27.0 - 11 [facility] 31.0 /2014 HEMATOLOGY MCV 79.4 80.0 - 11 [facility] 98.0 /2014 HEMATOLOGY RDW 16.7 11.5 - 11 [facility] 14.5 /2014 HEMATOLOGY RBC 4.31 4.20 - 11 [facility] 5.40 /2014 HEMATOLOGY WBC 7.1 3.7 - 10.4 11 [facility] /2014 HEMATOLOGY Hgb 10.6 12.0 - 11 [facility] 16.0 /2014 HEMATOLOGY Hct 34.2 36.0 - 11 [facility] 48.0 /2014 ANEMIA Ferritin Lvl 32 5 - 204 03/31 [facility] STUDY /2014 ANEMIA Iron 53 30 - 160 11 [facility] STUDY /2014 ANEMIA TIBC 386 228 - 428 03/31 [facility] STUDY /2014 ANEMIA UIBC 333 110 - 370 03/31 [facility] STUDY /2014 ANEMIA % Satur Fe 14 12 - 57 03/31 [facility] STUDY /2014 ELECTROLYTE AGAP 11.7 10.0 - 11 [facility] S 20.0 ELECTROLYTE eGFR 65 03/28 Result [facility] S /2014 Comment: The eGFR is calculated using the CKD-EPI formula. In most young, healthy individuals the eGFR will be >90 mL/min/1.73m2 . The eGFR declines with age. An eGFR of 60-89 may be normal in some populations, particularly the elderly, for whom the CKD-EPI formula has not been extensively validated. Use of the eGFR is not recommended in the following populations:< br/>
Floresita viduals with unstable creatinine concentration s, including patients and those with serious co-morbid conditions.<b r/>
Patie nts with extremes in muscle mass or diet.

The data above are obtained from the National Kidney Disease Education Program (NKDEP) which additionally recommends that when the eGFR is used in patients with extremes of body mass index for purposes of drug dosing, the eGFR should be multiplied by the estimated BMI. ELECTROLYTE Sodium Lvl 137 135 - 145 03/28 [facility] S /2014 ELECTROLYTE Creatinine 0.9 0.5 - 1.4 03/28 [facility] S Lvl /2014 ELECTROLYTE Potassium Lvl 3.7 3.5 - 5.1 03/28 [facility] S ELECTROLYTE CO2 28 24 - 32 03/28 [facility] S /2014 ELECTROLYTE Calcium Lvl 8.5 8.5 - 10.5 03/28 [facility] S ELECTROLYTE Chloride Lvl 101 95 - 109 03/28 [facility] S ELECTROLYTE BUN 15 7 - 22 03/28 [facility] S /2014 ELECTROLYTE Glucose Lvl 99 70 - 99 03/28 [facility] S /2014 HEMATOLOGY Hgb 10.8 12.0 - 03/28 [facility] 16.0 /2014 HEMATOLOGY Hct 33.4 36.0 - 03/28 [facility] 48.0 /2014 HEMATOLOGY Platelet 261 133 - 450 03/28 [facility] /2014 HEMATOLOGY MPV 8.6 7.4 - 10.4 03/28 [facility] /2014 HEMATOLOGY RDW 16.8 11.5 - 11 [facility] 14.5 /2014 HEMATOLOGY MCV 78.2 80.0 - 03/28 [facility] 98.0 /2014 HEMATOLOGY MCHC 32.3 32.0 - 11 MH [facility] 36.0 /2014 HEMATOLOGY MCH 25.3 27.0 - 11 MH [facility] 31.0 /2014 HEMATOLOGY RBC 4.27 4.20 - 11 [facility] 5.40 /2015 HEMATOLOGY WBC 6.2 3.7 - 10.4 11 [facility] /2014 HEMATOLOGY Eosinophils 7.5 0.0 - 4.0 11 [facility] /2014 HEMATOLOGY Segs-Bands # 3.4 1.5 - 8.1 03/28 [facility] /2014 HEMATOLOGY Lymphocytes # 1.8 1.0 - 5.5 03/28 [facility] /2014 HEMATOLOGY Monocytes # 0.4 0.0 - 0.8 03/28 [facility] /2014 HEMATOLOGY Basophils 1.1 0.0 - 1.0 03/28 [facility] /2014 HEMATOLOGY Microcyte 1+ None Seen 03/28 [facility] *ABN* /2014 (03/28/15 7:15 AM) HEMATOLOGY Eosinophils # 0.5 0.0 - 0.5 03/28 [facility] HEMATOLOGY Basophils # 0.1 0.0 - 0.2 03/28 [facility] HEMATOLOGY Monocytes 7.0 2.0 - 12.0 03/28 [facility] HEMATOLOGY Lymphocytes 28.5 20.0 - 03/28 [facility] 40.0 HEMATOLOGY Segs 55.9 45.0 - 03/28 [facility] 75.0 ENDOCRINOLO Cortisol Free 1.83 03/23 Result [facility] Comment:
Adult Reference Ranges for Cortisol, Free,
LC/MS/MS:<br/ >
8:00 - 10:00 AM 0.07-0.93 mcg/dL
4:00 - 6:00 PM 0.04-0.45 mcg/dL
10:00 - 11:00 PM 0.04-0.35 mcg/dL
Te st Performed at:
[facility]<br/ >[address] [place] [address]
[place] [address] Mark Pickard MD, PhD IMMUNOLOGY H pylori Ag Not Not 03/23 Result [facility] Stl detected Comment:
Antimicr obials, proton pump inhibitors, and
bismu th preparations inhibit H. pylori and
inges tion up to two weeks prior to testing may
cause false negative results. If clinically
indicated the test should be repeated on a new
speci men obtained two weeks after discontinuing
treatmen t.

Test Performed at:
[facility] [place], [address] [place] [address]
[place] [address] Bacilio Bello MD, FCAP IMMUNOLOGY H pylori IgG 2.0 03/23 [facility] CHEM PANEL eGFR 46 03/21 Result [facility] Comment: The eGFR is calculated using the CKD-EPI formula. In most young, healthy individuals the eGFR will be >90 mL/min/1.73m2 . The eGFR declines with age. An eGFR of 60-89 may be normal in some populations, particularly the elderly, for whom the CKD-EPI formula has not been extensively validated. Use of the eGFR is not recommended in the following populations:< br/>
Floresita viduals with unstable creatinine concentration s, including patients and those with serious co-morbid conditions.<b r/>
Patie nts with extremes in muscle mass or diet.

The data above are obtained from the National Kidney Disease Education Program (NKDEP) which additionally recommends that when the eGFR is used in patients with extremes of body mass index for purposes of drug dosing, the eGFR should be multiplied by the estimated BMI. CHEM PANEL Chloride Lvl 101 95 - 109 03/21 [facility] CHEM PANEL Potassium Lvl 4.5 3.5 - 5.1 03/21 [facility] CHEM PANEL Creatinine 1.2 0.5 - 1.4 03/21 [facility] Lvl CHEM PANEL Sodium Lvl 137 135 - 145 03/21 [facility] /2014 CHEM PANEL Calcium Lvl 8.8 8.5 - 10.5 03/21 [facility] CHEM PANEL CO2 29 24 - 32 03/21 [facility] /2014 CHEM PANEL Glucose Lvl 90 70 - 99 03/21 [facility] CHEM PANEL BUN 24 7 - 22 03/21 [facility] CHEM PANEL AGAP 11.5 10.0 - 03/21 [facility] 20.0 HEMATOLOGY Eosinophils # 0.3 0.0 - 0.5 03/21 [facility] HEMATOLOGY Basophils # 0.0 0.0 - 0.2 03/21 [facility] HEMATOLOGY Monocytes 6.3 2.0 - 12.0 03/21 [facility] /2014 HEMATOLOGY Lymphocytes 23.9 20.0 - 03/21 MH [facility] 40.0 HEMATOLOGY Segs 64.6 45.0 - 03/21 [facility] 75.0 HEMATOLOGY Monocytes # 0.4 0.0 - 0.8 03/21 [facility] HEMATOLOGY Eosinophils 4.7 0.0 - 4.0 03/21 [facility] /2014 HEMATOLOGY Basophils 0.5 0.0 - 1.0 03/21 [facility] /2014 HEMATOLOGY Segs-Bands # 4.7 1.5 - 8.1 03/21 [facility] /2014 HEMATOLOGY Lymphocytes # 1.7 1.0 - 5.5 03/21 [facility] /2014 HEMATOLOGY Hgb 11.9 12.0 - 03/21 [facility] 16.0 /2014 HEMATOLOGY RBC 4.87 4.20 - 03/21 [facility] 5.40 /2014 HEMATOLOGY Hct 38.7 36.0 - 03/21 [facility] 48.0 /2014 HEMATOLOGY Platelet 272 133 - 450 03/21 [facility] /2014 HEMATOLOGY RDW 17.2 11.5 - 03/21 [facility] 14.5 /2014 HEMATOLOGY MCHC 30.8 32.0 - 03/21 Result [facility] 36.0 Comment: Rechecked. HEMATOLOGY MCV 79.5 80.0 - 03/21 [facility] 98.0 /2014 HEMATOLOGY MCH 24.5 27.0 - 03/21 [facility] 31.0 HEMATOLOGY WBC 7.1 3.7 - 10.4 03/21 [facility] /2014 HEMATOLOGY MPV 8.7 7.4 - 10.4 03/21 [facility] /2014 URINE AND UA <=1.0 0.1 - 1.0 03/13 [facility] STOOL Urobilinogen mg/dL /2014 URINE AND UA WBC 138 0 - 5 03/13 [facility] STOOL URINE AND UA RBC 5 0 - 2 03/13 [facility] STOOL /2014 URINE AND UA Sq Epi None Seen 03/13 [facility] STOOL /2014 URINE AND UA Color Yellow Yellow 03/13 [facility] STOOL *NA* /2014 (03/13/15 10:24 AM) URINE AND UA Bacteria Occasional None Seen 03/13 [facility] STOOL /HPF /HPF /2014 URINE AND UA Mucus Few /LPF None Seen 03/13 [facility] STOOL /LPF /2014 URINE AND UA Amorph Occasional None Seen 03/13 [facility] STOOL Ariana /HPF /HPF URINE AND UA Hyal Cast 8 0 - 2 03/13 [facility] STOOL URINE AND UA Leuk Est Large Negative 03/13 [facility] STOOL *ABN* /2014 (03/13/15 10:24 AM) URINE AND UA Blood Negative Negative 03/13 [facility] STOOL (03/13/15 10:24 AM) URINE AND UA Nitrite Negative Negative 03/13 [facility] STOOL (03/13/15 10:24 AM) URINE AND UA Bili Negative Negative 03/13 [facility] STOOL *NA* /2014 (03/13/15 10:24 AM) URINE AND UA Protein 10 mg/dL Negative 03/13 [facility] STOOL mg/dL /2014 URINE AND UA Glucose Negative Negative 03/13 [facility] STOOL mg/dL mg/dL /2014 URINE AND UA Ketones Negative Negative 03/13 [facility] STOOL mg/dL mg/dL /2014 URINE AND UA pH 7.5 5.0 - 8.0 03/13 [facility] STOOL URINE AND UA Turbidity Slight Clear 03/13 [facility] STOOL *ABN* /2014 (03/13/15 10:24 AM) URINE AND UA Spec Grav 1.008 <=1.030 03/13 [facility] STOOL HEMATOLOGY Microcyte 1+ None Seen 03/12 [facility] *ABN* (03/12/15 4:25 AM) HEMATOLOGY Microcyte 1+ None Seen 03/11 [facility] *ABN* (03/11/15 4:02 PM) URINE AND UA Blood Negative Negative 03/11 [facility] STOOL (03/11/15 6:45 AM) URINE AND UA Bili Negative Negative 03/11 [facility] STOOL *NA* (03/11/15 6:45 AM) URINE AND UA Nitrite Negative Negative 03/11 [facility] STOOL (03/11/15 6:45 AM) URINE AND UA 0.2 0.1 - 1.0 03/11 [facility] STOOL Urobilinogen URINE AND UA Spec Grav 1.020 <=1.030 03/11 [facility] STOOL URINE AND UA Leuk Est Small Negative 03/11 [facility] STOOL *ABN* (03/11/15 6:45 AM) URINE AND UA Glucose Negative Negative 03/11 [facility] STOOL (03/11/15 6:45 AM) URINE AND UA Protein Negative Negative 03/11 [facility] STOOL (03/11/15 6:45 AM) URINE AND UA pH 6.0 5.0 - 8.0 03/11 [facility] STOOL URINE AND UA Ketones Negative Negative 03/11 [facility] STOOL *NA* /2014 (03/11/15 6:45 AM) URINE AND UA Color Yellow Yellow 03/11 [facility] STOOL *NA* /2014 (03/11/15 6:45 AM) URINE AND UA Turbidity Clear Clear 03/11 [facility] STOOL (03/11/15 6:45 AM) URINE AND UA WBC 21-50 /HPF None Seen 03/11 [facility] STOOL /HPF /2014 URINE AND UA CaOx Ariana Occasional None Seen 03/11 [facility] STOOL /HPF /HPF /2014 URINE AND UA Mucus None Seen None Seen 03/11 [facility] STOOL (03/11/15 6:45 AM) URINE AND UA Amorph Few /HPF None Seen 03/11 [facility] STOOL Ariana /HPF /2014 URINE AND UA Bacteria Moderate None Seen 03/11 [facility] STOOL /HPF /HPF /2014 URINE AND UA Sq Epi Few /LPF Few /LPF 03/11 [facility] STOOL URINE AND UA RBC None Seen 0 - 2 03/11 [facility] STOOL (03/11/15 6:45 AM) CHEM PANEL Magnesium Lvl 1.8 1.8 - 2.4 03/11 [facility] CHEM PANEL Phosphorus 3.4 2.5 - 4.5 03/11 [facility] CHEM PANEL Alk Phos 86 39 - 136 03/11 [facility] CHEM PANEL ALT 82 0 - 65 03/11 [facility] CHEM PANEL Bili Total 0.5 0.2 - 1.3 03/11 [facility] CHEM PANEL AST 52 0 - 37 03/11 [facility] CHEM PANEL Total Protein 7.6 6.4 - 8.4 03/11 [facility] CHEM PANEL Albumin Lvl 3.1 3.5 - 5.0 03/11 [facility] CHEM PANEL A/G Ratio 0.7 0.7 - 1.6 03/11 [facility] CHEM PANEL B/C Ratio 28 6 - 25 03/11 [facility] CHEM PANEL Globulin 4.5 2.0 - 4.0 03/11 [facility] IMMUNOLOGY Prealbumin 17.6 18.0 - 03/11 [facility] 45.0 /2014 LIPIDS Trig 63 <=149 03/11 [facility] mg/dL LIPIDS Chol 136 <=199 03/11 [facility] mg/dL LIPIDS HDL 55 >=61 mg/dL 03/11 [facility] LIPIDS VLDL 13 03/11 [facility] LIPIDS LDL 68 <=99 mg/dL 03/11 [facility] (Calculated) LIPIDS CHD Risk 2.47 3.90 - 03/11 [facility] 5.80 /2014 SPECIAL Hgb A1C 6.1 <=5.6 % 03/11 [facility] CHEMISTRY CHEM PANEL eGFR 52 02/21 Result Comment: The Medical eGFR is Center calculated using the CKD-EPI formula. In most young, healthy individuals the eGFR will be >90 mL/min/1.73m2 . The eGFR declines with age. An eGFR of 60-89 may be normal in some populations, particularly the elderly, for whom the CKD-EPI formula has not been extensively validated. Use of the eGFR is not recommended in the following populations:< br/>
Floresita viduals with unstable creatinine concentration s, including patients and those with serious co-morbid conditions.<b r/>
Patie nts with extremes in muscle mass or diet.

The data above are obtained from the National Kidney Disease Education Program (NKDEP) which additionally recommends that when the eGFR is used in patients with extremes of body mass index for purposes of drug dosing, the eGFR should be multiplied by the estimated BMI. CHEM PANEL BUN 18 7 - 22 02/21 [facility] CHEM PANEL Potassium Lvl 4.5 3.5 - 5.1 02/21 [place] [facility] CHEM PANEL Chloride Lvl 101 95 - 109 02/21 [place] [facility] CHEM PANEL Creatinine 1.1 0.5 - 1.4 02/21 [facility] Lvl [facility] CHEM PANEL Sodium Lvl 136 135 - 145 02/21 [facility] CHEM PANEL Glucose Lvl 82 70 - 99 02/21 [facility] CHEM PANEL CO2 29 24 - 32 02/21 [facility] CHEM PANEL AGAP 10.5 10.0 - 02/21 20. [facility] CHEM PANEL Calcium Lvl 8.6 8.5 - 10.5 02/21 [facility] ELECTROLYTE AGAP 12.4 10.0 - 02/20 [facility] S 20.0 [facility] ELECTROLYTE eGFR 75 02/20 Result [facility] Comment: The Medical eGFR is Center calculated using the CKD-EPI formula. In most young, healthy individuals the eGFR will be >90 mL/min/1.73m2 . The eGFR declines with age. An eGFR of 60-89 may be normal in some populations, particularly the elderly, for whom the CKD-EPI formula has not been extensively validated. Use of the eGFR is not recommended in the following populations:< br/>
Floresita viduals with unstable creatinine concentration s, including patients and those with serious co-morbid conditions.<b r/>
Patie nts with extremes in muscle mass or diet.

The data above are obtained from the National Kidney Disease Education Program (NKDEP) which additionally recommends that when the eGFR is used in patients with extremes of body mass index for purposes of drug dosing, the eGFR should be multiplied by the estimated BMI. ELECTROLYTE Potassium Lvl 4.4 3.5 - 5.1 02/20 [place] /2014 [facility] ELECTROLYTE Sodium Lvl 137 135 - 145 02/20 [facility] s S /2014 [facility] ELECTROLYTE Chloride Lvl 102 95 - 109 02/20 [facility] S /2014 [facility] ELECTROLYTE CO2 27 24 - 32 02/20 [facility] S 2014 [facility] ELECTROLYTE Calcium Lvl 8.7 8.5 - 10.5 02/20 [place] S /2014 [facility] ELECTROLYTE Glucose Lvl 92 70 - 99 02/20 [facility] /2014 [facility] ELECTROLYTE BUN 14 7 - 22 02/20 [facility] S /2014 [facility] ELECTROLYTE Creatinine 0.8 0.5 - 1.4 02/20 [facility] s S l /2014 [facility] HEMATOLOGY Basophils 1.0 0.0 - 1.0 02/20 [facility]2014 [facility] HEMATOLOGY Monocytes 6.8 2.0 - 12.0 02/20 [facility]2014 [facility] HEMATOLOGY Eosinophils 11.0 0.0 - 4.0 02/20 [facility] s 2014 [facility] HEMATOLOGY Anisocyte 1+ None Seen 02/20 [facility] *ABN* /2014 Medical (02/20/15 5:38 AM) Center HEMATOLOGY Microcyte 1+ None Seen 02/20 [facility] *ABN* /2014 Medical (02/20/15 5:38 AM) Center HEMATOLOGY Basophils # 0.1 0.0 - 0.2 02/20 s [facility] HEMATOLOGY Monocytes # 0.5 0.0 - 0.8 02/20 [facility] HEMATOLOGY Eosinophils # 0.9 0.0 - 0.5 02/20 [facility] HEMATOLOGY Segs 59.5 45.0 - 02/20 [place] 75.0 [facility] HEMATOLOGY Lymphocytes 21.7 20.0 - 02/20 40.0 [facility] HEMATOLOGY Segs-Bands # 4.7 1.5 - 8.1 02/20 [facility] HEMATOLOGY Lymphocytes # 1.7 1.0 - 5.5 02/20 [facility] HEMATOLOGY Hypochrom 1+ None Seen 02/20 [facility] (02/20/15 5:38 AM) [facility] HEMATOLOGY MCH 24.4 27.0 - 02/20 [place] 31.0 [facility] HEMATOLOGY MCHC 31.6 32.0 - 02/20 [place] 36.0 [facility] HEMATOLOGY WBC 7.9 3.7 - 10.4 02/20 [facility] HEMATOLOGY RBC 4.44 4.20 - 02/20 [place] 5.40 /2014 [facility] HEMATOLOGY Hct 34.3 36.0 - 02/20 48.0 [facility] HEMATOLOGY Hgb 10.8 12.0 - 02/20 16.0 [facility] HEMATOLOGY MCV 77.3 80.0 - 02/20 [place] 98.0 [facility] HEMATOLOGY RDW 21.2 11.5 - 02/20 [place] 14.5 [facility] HEMATOLOGY Platelet 263 133 - 450 02/20 [facility] HEMATOLOGY MPV 8.2 7.4 - 10.4 02/20 [facility] CHEM PANEL Calcium Lvl 8.7 8.5 - 10.5 02/18 [facility] CHEM PANEL CO2 26 24 - 32 02/18 [facility] CHEM PANEL Glucose Lvl 81 70 - 99 02/18 [facility] CHEM PANEL Sodium Lvl 137 135 - 145 02/18 [facility] CHEM PANEL Creatinine 0.9 0.5 - 1.4 02/18 [facility] Lvl [facility] CHEM PANEL BUN 18 7 - 22 02/18 [facility] CHEM PANEL Potassium Lvl 3.9 3.5 - 5.1 02/18 [place] [facility] CHEM PANEL Chloride Lvl 104 95 - 109 02/[place] [facility] CHEM PANEL eGFR 65 02/[address] [facility] Comment: The Medical eGFR is Center calculated using the CKD-EPI formula. In most young, healthy individuals the eGFR will be >90 mL/min/1.73m2 . The eGFR declines with age. An eGFR of 60-89 may be normal in some populations, particularly the elderly, for whom the CKD-EPI formula has not been extensively validated. Use of the eGFR is not recommended in the following populations:< br/>
Floresita viduals with unstable creatinine concentration s, including patients and those with serious co-morbid conditions.<b r/>
Patie nts with extremes in muscle mass or diet.

The data above are obtained from the National Kidney Disease Education Program (NKDEP) which additionally recommends that when the eGFR is used in patients with extremes of body mass index for purposes of drug dosing, the eGFR should be multiplied by the estimated BMI. CHEM PANEL AGAP 10.9 10.0 - 02/18 20.0 [facility] HEMATOLOGY RBC 4.40 4.20 - 02/18 [place] 5.40 /2014 [facility] HEMATOLOGY WBC 8.2 3.7 - 10.4 02/18 [facility] HEMATOLOGY Hgb 10.6 12.0 - 02/18 [place] 16.0 [facility] HEMATOLOGY MCH 24.2 27.0 - 02/18 [place] 31.0 [facility] HEMATOLOGY MCHC 31.1 32.0 - 02/18 36.0 [facility] HEMATOLOGY MCV 77.7 80.0 - 02/18 98.0 [facility] HEMATOLOGY Hct 34.2 36.0 - 02/18 [place] 48.0 [facility] HEMATOLOGY Platelet 254 133 - 450 02/18 [facility] HEMATOLOGY MPV 8.1 7.4 - 10.4 02/18 [facility] HEMATOLOGY RDW 21.5 11.5 - 02/18 14. [facility] HEMATOLOGY Eosinophils 10.1 0.0 - 4.0 02/18 [facility] HEMATOLOGY Monocytes 7.8 2.0 - 12.0 02/18 [facility] HEMATOLOGY Lymphocytes # 2.0 1.0 - 5.5 02/18 [facility] HEMATOLOGY Segs-Bands # 4.6 1.5 - 8.1 02/18 [facility] HEMATOLOGY Lymphocytes 24.6 20.0 - 02/18 [place] 40.0 [facility] HEMATOLOGY Segs 56.6 45.0 - 02/18 75.0 [facility] HEMATOLOGY Basophils 0.9 0.0 - 1.0 02/18 [facility] HEMATOLOGY Eosinophils # 0.8 0.0 - 0.5 02/18 [facility] HEMATOLOGY Monocytes # 0.6 0.0 - 0.8 02/18 [facility] HEMATOLOGY Microcyte 1+ None Seen 02/18 *ABN* Medical (02/18/15 6:20 AM) Center HEMATOLOGY Anisocyte 1+ None Seen 02/18 *ABN* Medical (02/18/15 6:20 AM) Center HEMATOLOGY Basophils # 0.1 0.0 - 0.2 02/18 [facility] HEMATOLOGY MPV 8.0 7.4 - 10.4 02/17 [facility] HEMATOLOGY Platelet 237 133 - 450 02/17 [facility] HEMATOLOGY Hgb 10.7 12.0 - 02/17 [place] 16.0 [facility] HEMATOLOGY RBC 4.45 4.20 - 02/17 [place] 5.40 [facility] HEMATOLOGY Hct 34.4 36.0 - 02/17 [place] 48.0 [facility] HEMATOLOGY WBC 8.4 3.7 - 10.4 02/17 [facility] HEMATOLOGY RDW 21.4 11.5 - 02/17 14. [facility] HEMATOLOGY MCHC 31.2 32.0 - 02/17 [place] 36.0 [facility] HEMATOLOGY MCV 77.4 80.0 - 02/17 [place] 98.0 /2014 [facility] HEMATOLOGY MCH 24.1 27.0 - 02/17 [place] 31.0 [facility] HEMATOLOGY Basophils # 0.1 0.0 - 0.2 02/17 [facility] HEMATOLOGY Microcyte 1+ None Seen 02/17 *ABN* Medical (02/17/15 5:18 AM) Center HEMATOLOGY Anisocyte 1+ None Seen 02/17 *ABN* Medical (02/17/15 5:18 AM) Center HEMATOLOGY Eosinophils # 0.7 0.0 - 0.5 02/17 [facility] HEMATOLOGY Monocytes # 0.7 0.0 - 0.8 02/17 [facility] HEMATOLOGY Segs-Bands # 4.9 1.5 - 8.1 02/17 [facility] HEMATOLOGY Monocytes 8.5 2.0 - 12.0 02/17 2014 [facility] HEMATOLOGY Lymphocytes # 2.0 1.0 - 5.5 02/17 [facility] HEMATOLOGY Eosinophils 8.2 0.0 - 4.0 02/17 [facility] HEMATOLOGY Basophils 0.8 0.0 - 1.0 02/17 [facility] HEMATOLOGY Lymphocytes 23.8 20.0 - 02/17 [place] 40.0 [facility] HEMATOLOGY Segs 58.7 45.0 - 02/17 [place] 75.0 [facility] CHEM PANEL A/G Ratio 0.5 0.7 - 1.6 02/15 [facility] CHEM PANEL Alk Phos 112 39 - 136 02/15 [facility] CHEM PANEL Bili Total 0.7 0.2 - 1.3 02/15 [facility] CHEM PANEL ALT 48 0 - 65 02/15 [facility] CHEM PANEL AST 43 0 - 37 02/15 2014 [facility] CHEM PANEL Globulin 5.6 2.0 - 4.0 02/15 2014 [facility] CHEM PANEL Total Protein 8.5 6.4 - 8.4 02/15 [facility] CHEM PANEL Albumin Lvl 2.9 3.5 - 5.0 02/15 [facility] CHEM PANEL B/C Ratio 30 6 - 25 02/15 /2014 [facility] HEMATOLOGY PTT 31.9 22.9 - 02/15 [place] 35.8 /2014 [facility] URINE AND UA Hyal Cast 1 0 - 2 02/15 [facility] URINE AND UA Amorph Few /HPF None Seen 02/15 [facility] STOOL Ariana /HPF /2014 [facility] URINE AND UA <=1.0 0.1 - 1.0 02/15 [facility] Urobilinogen mg/dL /2014 [facility] URINE AND UA Sq Epi Occasional Few /LPF 02/15 [facility] STOOL /LPF /2014 [facility] URINE AND UA Mucus Few /LPF None Seen 02/15 [facility] /LPF /2014 [facility] URINE AND UA Bacteria Occasional None [place]en [place] /HPF /HPF /2014 [facility] URINE AND UA WBC 71 0 - 5 02/15 [facility] URINE AND UA RBC 2 0 - 2 02/15 [facility] URINE AND UA Glucose Negative Negative 02/15 [facility] mg/dL mg/dL [facility] URINE AND UA Leuk Est Large Negative 02/15 [facility] *ABN* /2014 [facility] (02/15/15 2:47 AM) [place] URINE AND UA Nitrite Negative Negative 02/15 [facility] (02/15/15 2:47 AM) /2014 [facility] URINE AND UA Blood Negative Negative 02/15 [facility] (02/15/15 2:47 AM) /2014 [facility] URINE AND UA Ketones Negative Negative 02/15 [facility] mg/dL mg/dL [facility] URINE AND UA Bili Negative Negative 02/15 [facility] *NA* /2014 [facility] (02/15/15 2:47 AM) [place] URINE AND UA Protein Negative Negative 02/15 [facility] mg/dL mg/dL /2014 [facility] URINE AND UA pH 6.0 5.0 - 8.0 02/15 [facility] URINE AND UA Spec Grav 1.013 <=1.030 02/15 [facility] URINE AND UA Turbidity Clear Clear 02/15 [facility] (02/15/15 2:47 AM) /[facility] URINE AND UA Color Yellow Yellow 02/15 [facility] STOOL *NA* /2014 [facility] (02/15/15 2:47 AM) [place] CARDIAC BNP 128 <=100 02/14 [facility] ENZYMES pg/mL /2014 [facility] CARDIAC Troponin-I <0.02 0.00 - 02/14 [facility] ENZYMES 0.40 [facility] CHEM PANEL Phosphorus 3.6 2.5 - 4.5 02/14 [facility]2014 [facility] CHEM PANEL Magnesium Lvl 2.0 1.8 - 2.4 02/14 [facility] CHEM PANEL Lactic Acid 1.1 0.5 - 2.2 02/[address] [facility] CHEM PANEL B/C Ratio 26 6 - 25 02/14 [facility]2014 [facility] CHEM PANEL A/G Ratio 0.5 0.7 - 1.6 02/14 [facility]2014 [facility] CHEM PANEL Globulin 5.2 2.0 - 4.0 02/14 [facility]2014 [facility] CHEM PANEL Total Protein 7.9 6.4 - 8.4 02/14 [facility] CHEM PANEL Albumin Lvl 2.7 3.5 - 5.0 02/14 [facility] CHEM PANEL ALT 36 0 - 65 02/14 [facility] CHEM PANEL Alk Phos 97 39 - 136 02/14 [facility]2014 [facility] CHEM PANEL AST 31 0 - 37 02/14 [facility] CHEM PANEL Bili Total 0.4 0.2 - 1.3 02/[address] HEMATOLOGY Schistocyte 1-3 per HPF None Seen 02/14 [facility] (02/14/15 2:15 PM) [facility] HEMATOLOGY Target Cell Moderate None Seen 02/14 [facility] as *ABN* /2014 [facility] (02/14/15 2:15 PM) [place] HEMATOLOGY Hypochrom 1+ None Seen 02/14 [facility] (02/14/15 2:15 PM) [facility] HEMATOLOGY Plt Morph Normal 02/14 [facility] (02/14/15 2:15 PM) [facility] Pathology Reports No Data Provided for This Section Diagnostic Reports Report Value Date Source Knee 1-2 Views EXAM: XR LEFT KNEE 3 VIEWS 04/05/2015 TI RR unilateral DX DATE: 2015-04-05 at 1754 hours INDICATION: Pain and swelling COMPARISON: None available. TECHNIQUE: AP, lateral and sunrise radiographs of the left knee DISCUSSION: No acute fractu re or malalignment is identified. There is medial and lateral compartment joint space narrowing with additional subarticular sclerosis, cyst formation, and bone attrition of the medial compartment. Ther e is no knee joint effusion. No soft tissue abnormality is identified. IMPRESSION: Severe knee osteoarthrosis, most pronounced in t he medial compartment. Esophagus BA swallow w EXAM: Modified barium swallow speech ther apy 04/04/2015 [facility] function Rehab DX INDICATION: Dysphagia COMPARISON: None FINDINGS: Fluoroscopy time: 0.23 minutes The study was performed in the presence of speec h pathology. Patient was given thin liqui d barium by cup. No penetration or aspiration was seen. Patient was then given a bar ium tablet. This was swallowed with water. The barium tablet passed without difficulty. Patient was noted to cough after the barium tablet passed. Patient was then given a sec ond trial of thin liquid barium by straw. No penetration or aspiration was seen. IMPRESSION: 1. No penetration or aspiration with thin liquid s. 2. A barium pill passed easily. For complete details please refer to speech path ologist report. Brain wo contrast CT EXAM: CT BRAIN WITHOUT CONTRAST 03/21/2015 [facility] DATE: 03/21/2015 INDICATION: Vomiting TECHNIQUE: Noncontrast axial imaging was obtained from the vertex to the skull base. COMPARISON: MRI and CT brain from 02/14/2015 FINDINGS: No acute intracran ial hemorrhage. Encephalomalacia in the right MCA territory. Periventricular and subcortical microangiopathic changes. Mild asymmetric passive ventricular dilatation of the r ight lateral ventricle. Wall erian degeneration along the right corticospinal tract. No hydrocephalus, midline shift, or extra-axial collection. Mild mucosal disease in the left sphenoid chamber. IMPRESSION: Chronic ischemic changes in the right MCA territory and diffuse microangiopathic changes. No acute abnormality. Abdomen AP DX INDICATION: Abdominal distention. Abdominal pain . 03/21/2015 [facility] PROCEDURE: Abdomen, one view. FINDINGS: Right upper quadrant surgical clips stone ggest prior cholecystectomy. The large and small bowel lo ops are normal in diameter. The amount of fecal matter in the colon is unremarkable and has markedly improved from the comparison of March 11. There is no suspicious mass or calcification. The osseous structures demon strate mild degenerative changes in the spine. The lung bases are clear. IMPRESSION: 1. A nonobstructive bowel ga s pattern with no suspicious mass or calcification. Abdomen AP DX INDICATION: Abdominal fullness. 03/11/2015 [facility] PROCEDURE: Abdomen, one view. FINDINGS: There are multiple right upper quadrant surgical clips suggesting prior cholecystectomy. There is no dilated large or small bowel. There is, however, a large amount of fecal matter throughout the colon. Gas is present to the level of the rectum. IMPRESSION: 1. There is a prominent amou nt of retained fecal matter in the colon consistent with constipation. Chest 1view DX EXAM: PORTABLE AP SUPINE UPRIGHT CHEST 5 [facility] DATE: Mar 11, 2015 03:40:00 PM INDICATION: Abnormal chest sounds COMPARISON: 02/20/2015 FINDINGS: A single AP view of the chest is submitted. Lung lane are clear. Previously noted pleural effusions are not evident on this study. Heart size is upper limits of normal. Tortuosity of the descending thoracica aorta is present. IMPRESSION: 1. No acute disease. Chest 2 views DX EXAM: XR CHEST 2 VIEWS 02/20/2015 [facility] DATE: 2015-02-20 01:52:00 INDICATION: Coughing . COMPARISON: February 14 2015. TECHNIQUE: Frontal and lateral chest radiographs FINDINGS: The right lung remains clear, but there is a new small left pleural effusion. The cardiomediastinal silhouette is stable. The bones are osteopenic. Th ere is a chronic appearing mild wedge deformity in the lower thoracic spine. IMPRESSION: Interval development of a small left pleural eff usion. Chest 1view DX EXAM: XR CHEST 1 VIEW 02/14/2015 [facility] DATE: February 14, 2015 at 1456 hours INDICATION: Chest pain COMPARISON: None TECHNIQUE: Single AP view of the chest DISCUSSION: The patient is r otated to the left. The lungs are clear. No pleural effusion or pneumothorax is seen. The cardiomediastinal silhouette is unremarkable. There is no acute bony or soft tissue abnormality. IMPRESSION: No acute cardiopulmonary abnormality identified. Consultation Notes No Data Provided for This Section Discharge Summaries No Data Provided for This Section History and Physicals No Data Provided for This Section Vital Signs Vital Sign Value Date Comments Source Heart Rate 79 02/17/2016 [facility] Respitory Rate 18 02/17/2016 [facility] Systolic (mm Hg) 158 02/17/2016 [facility] Diastolic (mm Hg) 82 02/17/2016 [facility] Height 157.48 cm 02/17/2016 [facility] BMI Calculated 21.81 02/17/2016 [facility] Weight 54.091 02/17/2016 [facility] Heart Rate 58 09/23/2015 [facility] Systolic (mm Hg) 143 09/23/2015 [facility] Diastolic (mm Hg) 72 09/23/2015 [facility] Height 157.48 cm 09/23/2015 [facility] BMI Calculated 21.81 09/23/2015 [facility] Weight 54.091 09/23/2015 [facility] Respitory Rate 18 09/23/2015 [facility] Systolic (mm Hg) 127 09/21/2015 [facility] Diastolic (mm Hg) 66 09/21/2015 [facility] Heart Rate 55 09/21/2015 [facility] Systolic (mm Hg) 138 09/19/2015 [facility] Diastolic (mm Hg) 72 09/19/2015 [facility] Heart Rate 55 09/19/2015 [facility] Systolic (mm Hg) 143 08/24/2015 [facility] Diastolic (mm Hg) 72 08/24/2015 [facility] Heart Rate 59 08/24/2015 [facility] Systolic (mm Hg) 143 08/17/2015 [facility] Diastolic (mm Hg) 74 08/17/2015 [facility] Heart Rate 60 08/17/2015 [facility] Heart Rate 58 08/15/2015 [facility] Systolic (mm Hg) 137 08/15/2015 [facility] Diastolic (mm Hg) 71 08/15/2015 [facility] Height 157 cm 08/11/2015 [facility] Systolic (mm Hg) 129 08/08/2015 [facility] Diastolic (mm Hg) 64 08/08/2015 [facility] Heart Rate 56 08/08/2015 [facility] Height 157.48 cm 08/05/2015 [facility] BMI Calculated 21.44 08/05/2015 [facility] Weight 53.182 08/05/2015 [facility] Heart Rate 66 08/05/2015 [facility] Respitory Rate 20 08/05/2015 [facility] Systolic (mm Hg) 145 08/05/2015 [facility] Diastolic (mm Hg) 77 08/05/2015 [facility] BMI Calculated 20.16 07/18/2015 [facility] Weight 50 07/18/2015 [facility] Respitory Rate 16 07/18/2015 [facility] Heart Rate 62 07/18/2015 [facility] Height 157.48 cm 07/18/2015 [facility] Systolic (mm Hg) 140 07/18/2015 [facility] Diastolic (mm Hg) 68 07/18/2015 [facility] Systolic (mm Hg) 119 07/11/2015 [facility] Diastolic (mm Hg) 73 07/11/2015 [facility] Heart Rate 61 07/11/2015 [facility] Respitory Rate 18 07/04/2015 [facility] Systolic (mm Hg) 126 07/04/2015 [facility] Diastolic (mm Hg) 62 07/04/2015 [facility] Heart Rate 58 07/04/2015 [facility] BMI Calculated 20.16 07/04/2015 [facility] Weight 50 07/04/2015 [facility] Height 157.48 cm 07/04/2015 [facility] Heart Rate 60 07/04/2015 [facility] Respitory Rate 18 07/04/2015 [facility] Systolic (mm Hg) 132 07/04/2015 [facility] Diastolic (mm Hg) 64 07/04/2015 [facility] Systolic (mm Hg) 122 06/29/2015 [facility] Diastolic (mm Hg) 65 06/29/2015 [facility] Heart Rate 60 06/29/2015 [facility] Respitory Rate 20 06/27/2015 [facility] Heart Rate 60 06/27/2015 [facility] Systolic (mm Hg) 136 06/27/2015 [facility] Diastolic (mm Hg) 74 06/27/2015 [facility] Systolic (mm Hg) 133 06/21/2015 [facility] Diastolic (mm Hg) 62 06/21/2015 [facility] Heart Rate 60 06/21/2015 [facility] Heart Rate 60 06/15/2015 [facility] Systolic (mm Hg) 135 06/15/2015 [facility] Diastolic (mm Hg) 70 06/15/2015 [facility] Respitory Rate 16 06/13/2015 [facility] Heart Rate 59 06/13/2015 [facility] Systolic (mm Hg) 135 06/13/2015 [facility] Diastolic (mm Hg) 66 06/13/2015 [facility] Systolic (mm Hg) 136 06/09/2015 [facility] Diastolic (mm Hg) 63 06/09/2015 [facility] Heart Rate 56 06/09/2015 [facility] Systolic (mm Hg) 132 06/01/2015 [facility] Diastolic (mm Hg) 68 06/01/2015 [facility] Heart Rate 60 06/01/2015 [facility] Systolic (mm Hg) 120 05/18/2015 [facility] Diastolic (mm Hg) 58 05/18/2015 [facility] Heart Rate 56 05/18/2015 [facility] Systolic (mm Hg) 128 04/18/2015 [facility] Diastolic (mm Hg) 77 04/18/2015 [facility] Systolic (mm Hg) 132 04/18/2015 [facility] Diastolic (mm Hg) 80 04/18/2015 [facility] Heart Rate 98 04/18/2015 [facility] Weight 48.409 04/09/2015 [facility] Respitory Rate 17 04/09/2015 [facility] Systolic (mm Hg) 113 04/09/2015 [facility] Heart Rate 78 04/09/2015 [facility] Diastolic (mm Hg) 72 04/09/2015 [facility] Diastolic (mm Hg) 73 04/09/2015 [facility] Systolic (mm Hg) 141 04/09/2015 [facility] Respitory Rate 16 04/09/2015 [facility] Heart Rate 80 04/09/2015 [facility] Respitory Rate 17 04/08/2015 [facility] Diastolic (mm Hg) 74 04/08/2015 [facility] Heart Rate 93 04/08/2015 [facility] Systolic (mm Hg) 135 04/08/2015 [facility] Temperature Oral (F) 97.5 F 03/30/2015 [facility] Height 157.48 cm 03/29/2015 [facility] Height 157.48 cm 03/24/2015 [facility] Height 157.48 cm 03/24/2015 [facility] Temperature Oral (F) 97.8 F 03/16/2015 [facility] Temperature Oral (F) 98.3 F 03/15/2015 [facility] Weight 49.602 03/11/2015 [facility] BMI Calculated 20 03/11/2015 [facility] Heart Rate 71 [facility]/03/2015 [facility] Respitory Rate 20 03/03/2015 [facility] Systolic (mm Hg) 172 03/03/2015 [facility] Diastolic (mm Hg) 73 03/03/2015 [facility] Temperature Oral (F) 97.6 F 03/03/2015 [facility] Systolic (mm Hg) 94 03/03/2015 [facility] Diastolic (mm Hg) 54 03/03/2015 [facility] Heart Rate 79 03/03/2015 [facility] Respitory Rate 17 03/03/2015 [facility] Systolic (mm Hg) 90 03/03/2015 [facility] Diastolic (mm Hg) 49 03/03/2015 [facility] Respitory Rate 18 03/03/2015 [facility] Heart Rate 75 03/03/2015 [facility] Temperature Oral (F) 97.5 F 03/03/2015 [facility] Temperature Oral (F) 97.4 F 03/03/2015 [facility] Weight 63.7 02/16/2015 [facility] Height 157.48 cm 02/15/2015 [facility] BMI Calculated 25.7 02/15/2015 [facility] Weight 63.727 02/15/2015 [facility] Encounters Location Location Encounter Encounter Reason Attending ADM DC Stat us Source Details Type Number For Provider Date Date Visit [facility] [id number] Apollo 02/14 03/03 [facility] /2014 [facility] Inpatient [id number] Aime 03/11 04/09 [facility] Re[facility] Jenny /2014 [place] [facility] Tots [id number] Fabiolwy 04/18 05/[facility]2014 [place] [facility] Tots [id number] Fabiolwy 05/18 06/17 [facility]2014 [place] [facility] Outpatient [id number] Jessica 06/13 06/14 [facility] Kaycee-Gut /2015 [facility] Tots [id number] Fabiolla 06/20 07/20 [facility]2015 [place] [facility] Outpatient [id number] Madelyn 06/27 06/28 [facility] Yunior /2015 [facility] Outpatient [id number] Madelyn 07/04 07/05 [facility] Yunior /2015 [facility] Outpatient [id number] Madelyn07/18 [facility] Yunior [facility] Tots [id number] Fabiolla 07/20 08/18 [facility] [place] [facility] Outpatient [id number] Fabiolla 08/04 08/05 [facility] Diana [facility] Tots [id number] Fabiolla 08/21 09/20 [facility] [place] [facility] Tots [id number] Fabiol09/20 [facility] Therapy [place] [facility] Outpatient [id number] Jessica 09/22 09/23 [facility] Kaycee-Gut [facility] Tots [id number] Fabiol10/25 [facility] Therapy Diana [place] [facility] Outpatient [id number] Jessica 11/03 11/04 [facility] /2015 [facility] Outpatient [id number] Fabiol02/16 [facility] Diana [facility] Procedures Procedure Code Date Perfomer [place] [address] 09/23/2015 TI RR one extremity; 5 or more muscles Uterine fibroidectomy [id number] 05/27/1995 [facility] Assessment and Plan Assessment and Plan Date Source Extracted from:Title: Clinical Document 04/09/2015 [facility] Author: Joellen Riggs MD Date: 04/09/15 [facility] Weekend Progress Note: Chief Complaint: weakness Subjective: - No events reported by nursing - No pain reported - Last bowel movement yesterday Objective: Gen: resting in chair, no acute distress Head: atraumatic, normocephalic Eyes: extraocular motors intact, clear conjunctiva Respiratory: no wheezes, equal chest rise Cardiac: no murmurs rubs or gallops, S1, S2 Skin: no rashes on exposed skin, no lesions on exposed skin Medications (33) Active Scheduled Meds (13): 03/11/15 AMIODarone 200 mg PO Daily 03/18/15 amLODIPine 10 mg PO Daily 03/11/15 atorvastatin (Lipitor) 80 mg PO Bedtime 03/19/15 carvedilol (Coreg) 6.25 mg PO Q12H 03/11/15 docusate (Colace 100 mg oral capsule) 100 mg PO BID 03/17/15 (Suspended) hydrALAZINE 25 mg PO Q8H-06 03/11/15 levETIRAcetam (Keppra) 500 mg PO Q12H 03/11/15 lisinopril 40 mg PO Daily 03/21/15 (Suspended) metFORMIN (metFORMIN 500 mg oral table t) 500 mg PO BID 03/17/15 pantoprazole (Protonix) 40 mg PO BID-Before Meals 03/30/15 pregabalin (Lyrica) 25 mg PO Q12H 03/11/15 rivaroxaban (Xarelto) 20 mg PO QPM 03/22/15 senna (senna 8.6 mg oral tablet) 17.2 mg PO QNoon Unscheduled Meds (1): 03/28/15 INCObotulinumtoxinA 600 unit IM ONCALL PRN Meds (19): 03/10/15 Dextrose 50% in Water IV (Dextrose 50% Syringe) 12. 5 gm IVP PRN 03/10/15 Dextrose 50% in Water IV (Dextrose 50% Syringe) 25 gm IVP PRN 03/10/15 LORazepam 2 mg IVP PRN 03/10/15 PHENobarbital 992 mg IVP PRN 03/10/15 acetaminophen-hydrocodone (acet aminophen-hydrocodone 325 mg-5 mg oral tablet) 1 tab PO Q4H 03/10/15 acetaminophen-hydrocodone (acet aminophen-hydrocodone 325 mg-10 mg oral tablet) 1 tab PO Q4H 03/10/15 acetaminophen 650 mg PO Q4H 03/16/15 bisacodyl (Dulcolax Laxative) 10 mg CA Daily 03/31/15 diclofenac topical (Voltaren Topical 1% topical gel ) 2 gm TOP QID 03/10/15 glucagon 1 mg IM PRN 03/11/15 hydrALAZINE (hydrALAZINE 25 mg oral tablet) 25 mg P O Q6H 03/10/15 insulin aspart 1 unit SUB-Q TID-Before Meals 03/10/15 insulin aspart 2 unit SUB-Q TID-Before Meals 03/10/15 insulin aspart 3 unit SUB-Q TID-Before Meals 03/10/15 insulin aspart 4 unit SUB-Q TID-Before Meals 03/10/15 insulin aspart 5 unit SUB-Q TID-Before Meals 03/10/15 phenytoin 744 mg IVP PRN 03/17/15 promethazine (Phenergan) 6.25 mg PO Q6H 03/10/15 sodium chloride (Saline Flush 0.9%) 10 mL IVP PRN One Time Meds: None Continuous Infusions: None Vitals Tmp(F) Pulse BP RR SpO2 FIO2 04/09 07:00 98 78 113/72 17 --- --- 04/09 00:00 97.9 80 141/73 16 --- --- 04/08 16:00 97.8 93 135/74 17 --- --- 04/08 07:00 97.7 78 126/71 17 --- --- 04/08 00:13 97.1 82 120/81 16 --- --- 24 Hr Tmax: 98F (36.67c) at 04/09 07:00 Vital Signs are the last 5 in the past 48 hours. 24hr Labs 04/09 0713 Glucose POC 92 04/08 2043 Glucose POC 170 H 04/08 1649 Glucose POC 125 H 04/08 1152 Glucose POC 181 H 04/08 0606 Occult Bld Stl Negative Diagnosis: 1. Left middle cerebral artery stroke Comment: Diagnosis: 2. Hypertension, uncontrolled Comment: Diagnosis: 3. Atrial fibrillation Comment: Diagnosis: 4. History of CVA (cerebrovascular accident) Comment: Diagnosis: 5. Helicobacter pylori ab+ Comment: Diagnosis: 6. Seizure-like activity Comment: Diagnosis: 7. Abnormal thyroid blood test Comment: Diagnosis: 8. Nausea and vomiting Comment: Diagnosis: 9. Prediabetes Comment: Comment: Diagnosis: Acute UTI Comment: Diagnosis: CVA (cerebral infarction) Comment: Diagnosis: Constipation Comment: Diagnosis: Hemiparesis affecting lef t side as late effect of cerebrovascular accident Comment: Diagnosis: Left hemiplegia Comment: Diagnosis: Visual neglect Comment: Plan: Continue with comprehensive rehabilitation. Continue with current medical care. Extracted from:Title: Clinical Document Author: French Ortiz MD Date: 04/08/15 DISCHARGE SUMMARY NAME: Blaise Hanks. ADMISSION DATE: 03/10/2015 DISCHARGE DATE: 04/09/2015 DISCHARGE DIAGNOSIS: Brain injury rehabiliation ATTENDING PHYSICIAN: Dr. French Ortiz MD BRIEF SUMMARY OF PRESENT ILLNESS and PERTINENT PAST HISTORY: 69 year old female with PMH CVA (residu al impairments of L facial weakness and L hemiplegia, that occurred in 11/08), HTN, and a-fib on xarelto who presented from her alf on 02/14/15 due to an increase in lethargy / unresponsiveness and left leg twitching. Patient was sent to an OSH in [facility] where CT and MRI were done. MRI showed old R MCA distribution CVA, and no acute findings and she was sent to [facility] for higher level of care. She was found to be bradycardic, hypotensive, and hypoglycemic in ER at [facility]. BB and amiodarone were held with improvement in BP / HR. Subsequently deidre nt was found to have UTI. Her mental sta tus change was found likely to be secondary to a metabolic encephalopathy due to UTI and late effects of stroke. Bradycardia, likely related to medications. Alli cardia resolved and patient completed IV abx for UTI. EEG showed no epileptiform activity. The patient admitted to [facility] for comprehensive neurorehabilitation. HOSPITAL COURSE: The following issues we re addressed during this hospitalization. L MCA CVA: -Etiology likely cardioembolic given history -Cont Xeralto, statin ASA d/c 03/23 -03/21 CTH: Chronic ischemic changes in the right MCA territory and diffuse microangiopathic changes. No acute abnormality. Atrial fibrillation: -Continue amiodarone and metoprolol. Anticoagulation with xa relto -03/19: Metoprolol discontinued; coreg started HTN -03/01- 03/21: Placed on [place]. Medications held. Giv en IVF -03/11 - 04/07: Symptomatic hpotensive e pisodes are now resolved. Cont to monitor BP. - ME hospitalist following; appreicate r ecs: -Cont coreg, amlodipine, lisinopril Possible CHF -Have found no documentation of cardiac function, patient reports activity at home prior to CVA limited by shortness of breath and her "CHF", she does not recall the type or severity of this disease Possible seizures -Will continue keppra 500mg q12h for que stionable partial seizures during initial hospitalization -Previous EEG with no epileptiform activity Neurogenic bowel: -docusate 100 mg BID, senna qNOON -MOM 03/17 -03/21: The amount of fecal matter in th e colon is unremarkable and has markedly improved from the comparison of March 11. -Patient reports having a good BM at [facility] every other day; states this is normal for her; she reports that she never used to have daily BM Nausea and vomiting - possibly from constipation vs sensitive to polypharmacy. - Zofran moderately c/i in the presence of amiodarone. Phenergan has less interaction with Amiodarone. - Ok low dose of Phenergan 6.25mg PO Q8H 03/17 -03/18: ordered fleet enema. Increased s nica to 2tab qNOON. Prune juice with meals TID -1026: KUB: A nonobstructive bowel gas p attern with no suspicious mass or calcification. -03/22: H pylori; positive result: 2.0 -d/c gabapentin 03/30, nausea much improved Genitourinary: -Pt continent GERD -Cont PPI DM II -A1c: 6.1; Patient denies diagnosis; how ever on medication. Will clarify when medication was started -Detemir switched to metformin; however metformin held 03/21 due to increased N/V over the weekend and poor PO intake -ME hospitalist following; appreciate re cs. Will continue to hold metformin for now Dysphagia -Mild oral dysphagia on previous FEES , cont small bites and sips and sitting upright with meals Infectious Disease: -pyuria on admission UA: +WBC -Started on bactrim 03/13 for UTI. Swit ched to cefuroxime x 3 days since it's less renal toxic. Tolerated well. -ABx course completed 03/19 Nociceptive and Neuropathic Pain: - 03/28 Neuropathic pain controlled. Curr ent complaints from nociceptive source. Cont taping to left shoulder. Voltaren gel to anterior knee. - 03/30 gabapentin discontinued, start lyrica 25mg BID, impro esdras Microcytic anemia, -10.6 Hgb, stable -iron studies: WNL. Spastic L hemiparesis: -Agressive range of motion exercises, casting and splinting. -Shoulder abduction, finger, wrist and knee flexors. -03/23: will consider botulinum inj in the future. Phenol on 03/29 - improved spasticity and pain as per PT/OT DVT prophylaxis: -Patient will be maintained on xarelto. Fluids, Nutrition, Electrolytes: -Pt is on REGULAR ORAL diet after FEES f rom [facility]. Prune juice with meals TID. Cont monitoring by INDEPENDENT DISTRIBUTOR. -nutritional boost order is in place, MD to RN order in place for supplement to be given with oral medications for symptomatic improvement in discomfort/nausea during PO med administration Left knee pain -improved with voltaren gel -04/05 knee xray : severe knee osteoart hrosis, most pronounced in the medial compartment. - ok to take tylenol prn DISCHARGE MEDICATIONS: Scheduled Meds (13): 03/11/15 AMIODarone 200 mg PO Daily 03/18/15 amLODIPine 10 mg PO Daily 03/11/15 atorvastatin (Lipitor) 80 mg PO Bedtime 03/19/15 carvedilol (Coreg) 6.25 mg PO Q12H 03/11/15 docusate (Colace 100 mg oral capsule) 100 mg PO BID 03/11/15 levETIRAcetam (Keppra) 500 mg PO Q12H 03/11/15 lisinopril 40 mg PO Daily 03/17/15 pantoprazole (Protonix) 40 mg PO BID-Before Meals 03/30/15 pregabalin (Lyrica) 25 mg PO Q12H 03/11/15 rivaroxaban (Xarelto) 20 mg PO QPM 03/22/15 senna (senna 8.6 mg oral tablet) 17.2 mg PO QNoon PRN Meds (19): 03/31/15 diclofenac topical (Voltaren Topical 1% topical gel ) 2 gm TOP QID ACTIVITY LIMITATIONS and PARTICIPATION RESTRICTIONS: . fim PHYSICAL EXAM ON DISCHARGE: General: Resting comfortably in bed, in no acute distress HEENT: Normocephalic, anicteric, auditory acuity intact Cardiovascular: Regular rate, no signs of vasomotor instabil ity Pulmonary: Breathing without difficulty, no splinting Gastrointestinal: Soft abdomen, non-tender, non-distended Musculoskeletal: Warm extremities, well perfused Neurological: Alert and interactive. No dysarthria. Fluent. Good comprehension. Poor attention. Skin: Not examined today LABS and IMAGING: Recent labs and imaging personally reviewed. ACTIVITY LIMITATIONS and PARTICIPATION R ESTRICTIONS ON DISCHARGE: Improved from admission, activity as tolerated. CONDITION OF PATIENT ON DISCHARGE: Good DISCHARGE DIET: regular DISPOSITION/INSTRUCTIONS/FOLLOW-UP Brain injury clinic in 8-12 weeks with Lyn Ortiz. PT, OT and INDEPENDENT DISTRIBUTOR will call your home to schedule therapies. Primary care physician in 1-2 weeks, alexander jeong blood glucose, cardiac function, anemia French Ortiz MD Brain Injury Medicine [employer] Esc[employer] Professor [facility] Extracted from:Title: Functional Vision Assessment Author: Madelyn Aburto OD Date: 03/30/15 FUNCTIONAL VISION ASSESSMENT CONSULT REPORT OF FINDINGS: [Please see handwritten note in chart fo r ocular history and clinical exam data.] ASSESSMENT: 1. Distance visual acuity is at least 20/40+ in the right eye and 20/30 in the left eye with the patient's current glasses. It's possible that her acuity may be a bit better than what we me asured today as we had to perform her ex am with her in bed and we could not get her fully upright so she may have been looking through an improper portion of her progressive lenses during testing. 2. Near visual acuity is 20/32 (5 poin t font equivalent) in the right eye and 20/50 (8 point font equivalent) in the left eye with the patient's current glasses. 3. Confrontation visual field testing revealed: full confrontation visual lane in each eye; however, the patient exhibitied mild left neglect with paper pencil tasks. 4. Binocular vision testing revealed: no strabismus with good convergence and intact stereopsis (depth perception). 5. EOMs demonstrate full range of motion bilaterally. 6. Pupil evaluation revealed: equal, round and reactive pupils with no afferent pupillary defect. 7. The refractive error is hyperopia, astigmatism an d presbyopia bilaterally. 8. External ocular health revealed: mi ld nuclear sclerosis of the lens bilaterally. 9. Internal ocular health revealed: n ormal optic nerve, macula, retina, and retinal vasculature bilaterally. PLAN: 1. The patient should continue to use her current glasses for distance viewing. 2. The patient should continue to use her current glasses for near viewing. 3. Work with the patient on compensato ry scanning strategies with eyes and head to the left to help the patient compensate for their left neglect. Use line guides and visual markers as needed. We rec ommend follow-up of the left neglect in 3 months to monitor for possible improvement. 4. Monitor binocular vision in one year or PRN. 5. Monitor EOMs yearly or PRN. 6. Monitor pupil function yearly or PRN. 7. Monitor refractive error in 3 month s. Try to perform a subjective refraction at that time to then give the patient an updated spectacle prescription. We were unable to perform a subjective refrac tion with the patient today as she was in bed not feeling we ll. 8. Monitor nuclear sclerosis in 1 year or PRN. 9. Complete eye exam with dilation in 1 year or PRN. 10. We explained the A&P to the patient and gave her our con tact information. Extracted from:Title: Clinical Document Author: Jer Johnson DO Date: 03/10/15 History and Physical Transferring facility and physician: [facility] Hospitalization for CVA on October 2014 was at [facility], for Encephalopathy in Jan 2015 was at [facility] Chief complaint and reason for hospitali zation: decreased independence secondary to toxometabolic encephalopathy and late effects of CVA Admitting Physician: Dr. Ortiz The following history was obtained throu gh extensive chart review and from patient which is highlighted and summarized below History of Present Illness: 69 year old female with PMH CVA (residu al impairments of L facial weakness and L hemiplegia, that occurred in 11/08), HTN, and a-fib on xarelto who presented from her alf on 02/14/15 due to an increase in lethargy / unresponsiveness and left leg twitching. Patient was sent to an OSH in [facility] where CT and MRI were done. MRI showed old R MCA distribution CVA, and no acute findings and she was sent to [facility] for higher level of care. She was found to be bradyardic, hypotensive, and hypoglycemic in ER at [facility]. BB and amiodarone were held with improvement in BP / HR. Subsequently patifer t was found to have UTI. Her mental stat us change was found likely to be secondary to a toxometabolic encephalopathy due to UTI and late effects of stroke. Bradycardia, likely related to medications. B radycardia resolved and patient complete d IV abx for UTI. EEG showed no epileptiform activity. Evaluation for inpatient acute rehabilitation was denied and patient was admitted to [facility]. Hus band appealed decision and it was overtu rned. The patient will be admitted to [facility] for comprehensive neurorehabilitation. Past MedicalSurgical History: A fib, CVA, DM, dysphagia, hemiplegia, HTN, partial seizure, GERD Functional History: Previously independe nt with activities of daily living and did not require any assistive living devices prior to injury. Currently Mod to max assist with ADLs and mobility Social History: Patient lives in a [facility] w ith and son, just prior to hospitalization she was at alf, denies alcohol, tobacco, or illicit drug use. Family History: reports no family history of medical conditi ons Medications: patient reports not know ing entire medication list, and medication list from SNF does not appear correct, attempted to verify medication list from SNF and received same sheet as before, will start same medications that were given at discharge fro [facility] Scheduled Meds (15): 03/11/15 AMIODarone 200 mg PO Daily 03/11/15 aspirin (aspirin 81 mg tablet, enteric coated) 81 m g PO Daily 03/11/15 atorvastatin (Lipitor) 80 mg PO Bedtime 03/11/15 cloNIDine (cloNIDine 0.1 mg oral tablet) 0.1 mg PO Q12H 03/11/15 docusate (Colace 100 mg oral capsule) 100 mg PO BID 03/11/15 gabapentin (gabapentin 300 mg oral capsule) 300 mg PO BID 03/11/15 hydrALAZINE 50 mg PO Q8H 03/11/15 insulin detemir (Levemir) 10 unit SUB-Q Daily 03/11/15 levETIRAcetam (Keppra) 500 mg PO Q12H 03/11/15 lidocaine topical (Lidoderm 5% topical film ( patch)) 2 patch TOP Daily 03/11/15 lisinopril 40 mg PO Daily 03/11/15 metoprolol (metoprolol tartrate) 6.25 mg PO BID 03/11/15 remove patch TOP Bedtime 03/11/15 rivaroxaban (Xarelto) 20 mg PO QPM 03/11/15 senna (senna 8.6 mg oral tablet) 8.6 mg PO Bedtime Allergies: codeine, pcn Review of Systems: Constitutional symptoms: Denies any fever or chills Eyes: No recent change in vision or irritation Ears, Nose, Throat: No change in hearing, recent epistaxis o r sore throat Cardiovascular: No chest pain or palpitations Pulmonary: No shortness of breath or cough Gastrointestinal: no recent diarrhea or abdominal pain Genitourinary: No hematuria or dysuria, reports incontinence Musculoskeletal: reports left shoulder pain Endocrine: No heat/cold intolerance. Neurological: left sided weakness Psychiatric: Mood stable, no suicidal or homicidal ideation Integumentary: No areas of skin breakdown or rash Physical Examination: . Vitals Tmp(F) Pulse BP RR SpO2 FIO2 03/11 00:00 97.4 64 161/72 18 --- --- 03/10 21:50 97.2 62 156/74 16 --- --- 24 Hr Tmax: 97.4F (36.33c) at 03/11 00:0 0 Vital Signs are the last 5 in the past 48 hours. General: Resting comfortably in bed, in no acute distress Head,ears,nose,throat: Normocephalic, nares patent, oral muc edita moist Eyes: Extraocular muscles intact, pupils equal and reactive to light Cardiovascular: Regular rate, warm upper extremities Pulmonary: Breathing without difficulty, no splinting Gastrointestinal: Soft abdomen, non-tender, non-distended Skin: No obvious rash or areas of breakdown observed Psych: Cooperative with exam, appropriate affect Neurological: Mental Status: A&O x to person and place , reported date as Mar 25 2015; repetition/fluency/comprehension intact Kwabena reyes quarter ema: 40 cents Days of week, forward and backward are correct Serial 7s: 93, 93, 93, 100, 93 CN: Cranial Nerves I (olfactory): intact II (optic) Pupils: equal round reactive to light Fundi: normal Visual Lane: intact Acuity: sufficient III, IV, (EOM): extraocular movements intact V (trigeminal): intact, symmetric VII (facial): left facial droop VIII (auditory/vestibular): intact, symmetric IX, X, XII (tongue, palate, gag): tongue deviates R XI (accessory): weak on L Motor: Right Left Elbow flexors 4/5 0/5 Wrist extensors 4/5 0/5 Elbow extensors 4/5 0/5 Finger flexors 4/5 0/5 Hip flexors 4/5 2/5 Knee extensors 4/5 0/5 Ankle dorsiflexors 4/5 0/5 Long toe extensors 4/5 0/5 Ankle plantar flexors 4/5 0/5 Sensory: Upper limb, lower limb, trunk intact to light touch. Proprioception intact. Cerebellar: Finger to nose, rapid alternating movements inta ct on R Reflexes: Right Left Bicep 2 3 Brachioradialis 2 3 Patella 2 3 Ankle 2 4 with sustained clonus Roque Neg. Neg. Babinski Neg. Neg. Musculoskeletal: Bulk: Full, no atrophy ROM: decreased ROM on L secondary to spasticity and contract ures Tone: increased tone on L Labs: Reviewed labs from transferring facility. Admission labs ordered, Assessment and comprehensive plan of care: 69 yo female with pmh of L MCA CVA, HTN, A-Fib, DM II who was admitted 02/14 with lethargy found to be secondary to toxometabolic encephalopathy 2/2 UTI, polypharmacy, and late effects of CVA Impairments: Left Hemiplegia spasticity joint contractures cranial neuropathies deconditioning Possible Seizures Risk of constipation Risk of neurogenic bladder Mild Oral Dysphagia Activity limitations: Cognitive deficit Impaired mobility Impaired basic activities of daily living Impaired instrumental activities of daily living Impaired community access Participations restrictions: Leisure activities Synagogue activities Community reintegration Impaired vocation and avocation # Rehabilitation: Patient will require 2 4 hour rehabilitation nursing for management of bowel, bladder, skin integrity, medication management, safety measures and preventing risk factors and complications. Patient will require a minimum of 3 hour s of therapy a day for 5-7 days a week throughout the hospitalization, including at least the followin-2 hours Physical Therapy, 1-2 hours Occupational Therap y and Exercise and Multidisciplinary Radha ups. These disciplines will be needed in order to improve the patients impairments in mobility, transfers, activities of daily living and evaluation of durable medical equipment if needed at discharge. In addition, the patient may also receiv e 1-2 additional hours of one or all of the following: Speech Language Pathology, Swallowing Training, Neuropsychology, Cognitive Training, Behavior Training, Mus ic Therapy and Therapeutic Recreation as appropriate. Social Work and Case Management will be consulted to assist with discharge planning and family coping strategies # Precautions: Fall, seizure, aspiration # L MCA CVA: - Cont ASA, statin -Optimize secondary prophylaxis measures -Etiology likely cardioembolic given history # Atrial fibrillation -Continue amiodarone and metoprolol. Anticoagulation with xa relto #HTN -Cont clonidine, hydralazine, metoprolol, lisinopril - many doses were held due to low blood pressures at [facility], mo celiaor closely # Possible CHF -Have found no documentation of cardiac function, patient reports activity at home prior to CVA limited by shortness of breath and her "CHF", she does not recall the type or severity of this disease -Monitor pulmonary and cardiovascular system closely in ther apies, Possible seizures -Will continue keppra 500mg q12h -Previous EEG with no epileptiform activity # Gastrointestinal: - Patient will be started on a bowel re gimen to yield a daily bowel movement. Will start patient on docusate 100 mg BID. # Genitourinary: - Will monitor voids and check PVR to en sure that patient is not retaining urine. - Start timed voids # GERD -Cont PPI # DM II -SSI, detemir 10u daily -Will check A1c # Dysphagia -Mild oral dysphagia on previous FEES , cont small bites and sips and sitting upright with meals -Cont building maintenance superintendent # Infectious Disease: - No active infections will follow up admission CBC # Nociceptive and Neuropathic Pain: -L post- stroke shoulder pain, may benef it from intra-articular steroids, kinesiotaping, tray table for w/c - Will monitor for uncontrolled pain as this may limit participation in therapy # Spastic L hemiparesis: - Commence range of motion exercises and consider spasmolyti cs. # Integumentary: - Will order patient to be turned q2h hours to minimize skin breakdown. # DVT prophylaxis: - Patient will be maintained on xarelto. # Fluids, Nutrition, Electrolytes: - Will consult dietary for evaluation an d treatment of nutritional status, and follow up with admission electrolytes and replace as clinically indicated -Pt is on REGULAR ORAL diet. Jer Johnson, Physical Medicine and Rehabilitation Resident PMR ATTENDING/POST-ADMISSION PHYSICIAN EVALUATION I saw, examined and discussed the patien t with Dr. Johnson and agree with his documentation with the following exceptions/additions: - none. The patient presents for inpatient rehab ilitation following an ischemic stroke incurred on 10/2014. There are no medical or functional changes since the preadmission assessment. The patient has ongoing m edical and functional impairments that c an safely be met in the IRF setting, and these needs cannot be adequately addressed in a lower level of care, as the patient requires 24hr nursing and daily medic al management. The patient also has anushka rbidities including dysphagia, spastic hemiparesis, DM2, HTN, atrial fibrillation and the combination of the stroke and comorbidities also necessitate close medic al supervision, specialized rehabilitati on nursing, and skilled therapy intervention. The patient is able to participate in and benefit from an acute inpatient rehabilitation program, with anticipated m easurable gains as a result of this prog lorin. Prior to the stroke the patient was independent with all ADLs and mobility. Currently, the patient requires moderate to maximal assistance for both ADLs and mobility. There are no obvious barriers to disposition to the community following the IRF admission. Prognosis: Fair to good Estimated Length of Stay: 4-6 weeks Discharge Disposition: To be determined, will discuss at interdisciplinary team rounds Date of service: 03/11/15 French Ortiz Brain Injury Rehabilitation Medicine Specialist [facility] Plan of Care No Data Provided for This Section Social History Social History Date Source Social History TypeResponse 02/17/2016 [facility] Smoking Status Never smoker; Exposure to Tobacco Smoke None; Cigarette Smoking Last 365 Days Yes; Reg Smoking Cessation Counseling No Social History TypeResponse 02/14/2015 [facility] Smoking Status Never smoker; Exposure to Tobacco Smoke None; Cigarette Smoking Last 365 Days No; Reg Smoking Cessation Counseling No Family History No Data Provided for This Section Advance Directives No Data Provided for This Section Functional Status No Data Provided for This Section
[2020-03-27 14:00] LABS: Arterial Blood Carboxyhemoglob 1.4 % (0-1.5); Blood Gas Oxyhemoglobin 92.6 % (94-97)
[2020-03-27] MEDS ORDERED: CEFTRIAXONE/SWI 1gm 1 GM/10 ML SYR ONE (14:17)
[2020-03-27] MEDS ORDERED: NA CHLORIDE 0.9% 1,000 ML ONE (14:17)
[2020-03-27] MEDS ORDERED: IPRATROPIUM BROM 0.5MG/2.5ML ONE (14:17)
[2020-03-27] MEDS ORDERED: ALBUTEROL 2.5 MG/3 ML NEB SOL ONE (14:17)
[2020-03-27] MEDS ORDERED: METHYLPREDNISOLONE 125 MG INJ ONE (14:17)
[2020-03-27 14:20] LABS: Urine Appearance TURBID; Urine Blood 2+ (NEG); Urine Color ORANGE; Urine Glucose NEGATIVE (NEG); Urine Protein 2+ (NEG)
--- NOTE | 2020-03-27 14:24 | RAD REPORT ---
EXAM DESCRIPTION: RAD - Chest Single View - 03/27/2020 2:05 pm CLINICAL HISTORY: SOB;Cough COMPARISON: September 2017 TECHNIQUE: AP portable chest image was obtained 03/27/2020 2:05 pm . FINDINGS: Patchy airspace opacification present in the right lung field. Focal infiltrates seen in t he upper left lung field. Cardiac silhouette is enlarged obscuring the left lung base and left hemidi aphragm minimal airspace opacification in the lower right lung field. Interstitial increased opacific ation noted in the right lung field. Trachea is midline No measurable pleural effusion and no pneumot horax. No acute bony abnormality seen. No acute aortic findings suspected. IMPRESSION: Patchy bilateral pneumonia changes. Pattern can be seen with COVID-19 pneumonia and needs correlation with clinical concern and testing.
[2020-03-27 14:27] LABS: Absolute Lymphocytes (CBC) 1.1 K/uL (0.7-4.9); Basophils % 0.1 % (0-1.3); Hematocrit 32.4 % (36.0-45.0); Lymphocytes % 6.3 % (15.3-44.8); MPV 8.4 fL (7.6-11.3); RBC Red Blood Cell Count 4.34 M/uL (3.86-4.86)
[2020-03-27 14:29] LABS: Protime INR 1.91
[2020-03-27 14:38] LABS: Albumin 2.4 g/dL (3.4-5.0); Bilirubin Direct 0.8 mg/dL (0-0.2); Bilirubin Total 1.3 mg/dL (0.2-1.0); CKMB Creatine Kinase MB 2.2 ng/mL (0.3-3.6); Potassium 3.7 mmol/L (3.5-5.1); Protein, Total 9.3 g/dL (6.4-8.2); Troponin (Emerg Dept Use Only) 0.12 ng/mL (0.0-0.045)
[2020-03-27 15:02] LABS: Urine Microscopic Reflex NO UMIC
[2020-03-27 15:03] LABS: Urine Bacteria LOADED /HPF (<20); Urine Culture Reflex Order REFLEXED
[2020-03-27 15:15] LABS: Urine Bilirubin 1+ (NEG)
--- NOTE | 2020-03-27 15:19 | EDPHYS ---
Physician Documentation [facility] Name: Nallely Hanks Age: 74 yrs Sex: Female : 1945 Arrival Date: 03/27/2020 Time: 13:31 Bed 5 Private MD: ED Physician Demond Marshall HPI: 03/27 15:41 This 74 yrs old Female presents to ER via EMS with complaints of Decreased kdr Appetite, Respiratory Distress. 15:10 The patient presents with confusion, decreased mental status, decreased responsiveness. kdr Onset: The symptoms/episode began/occurred gradually, 2 day(s) ago. Possible causes: CVA or TIA, sepsis, unknown. Associated signs and symptoms: Pertinent positives: confusion, shortness of breath. Current symptoms: In the emergency department the patient's symptoms are unchanged from the initial presentation. Patient's baseline: Neuro: Unable to determine - pt non verbal and initially not present - when he was p[resent, his speech was poor and also a poor hsitorian. It is unknown whether or not the patient has had similar symptoms in the past. It is unknown whether or not the patient has recently seen a physician. Historical: - Allergies: 13:34 Codeine; ss 13:34 PENICILLINS; ss - PMHx: 13:34 CAD; CVA; Depression; Hypertension; Hypothyroidism; L sided paralysis; ss - PSHx: 13:34 Cholecystectomy; ss - Immunization history:: Adult Immunizations up to date. - Social history:: Smoking status: unknown. ROS: 15:10 Constitutional: Unable to assess kdr 15:37 Unable to obtain ROS due to baseline dementia, Prior CVA. kdr Exam: 15:37 Constitutional: This is a well developed, poorly nourished patient who is poorly kdr responsive. Head/Face: Normocephalic, atraumatic. Eyes: Pupils equal round and reactive to light, extra-ocular motions intact. Lids and lashes normal. Conjunctiva and sclera are non-icteric and not injected. Cornea within normal limits. Periorbital areas with no swelling, redness, or edema. Neck: Trachea midline, no thyromegaly or masses palpated, and no cervical lymphadenopathy. Supple, full range of motion without nuchal rigidity, or vertebral point tenderness. No Meningismus. Chest/axilla: Normal chest wall appearance and motion. Nontender with no deformity. No lesions are appreciated. Abdomen/GI: Soft, non-tender, with normal bowel sounds. No distension or tympany. No guarding or rebound. No evidence of tenderness throughout. Back: No spinal tenderness. No costovertebral tenderness. Full range of motion. Skin: Warm, dry with normal turgor. Normal color with no rashes, no lesions, and no evidence of cellulitis. MS/ Extremity: Pulses equal, no cyanosis. Neurovascular intact. Full, normal range of motion. 15:37 Cardiovascular: Rate: normal, Rhythm: regular, Pulses: no pulse deficits are appreciated, Heart sounds: normal, Edema: is not appreciated. 15:37 Respiratory: mild respiratory distress is noted, moderate respiratory distress is noted, Respirations: labored breathing, that is mild, that is moderate, grunting, prolonged exhalation, shallow respirations, that is mild, Breath sounds: decreased breath sounds, stridor, is not appreciated, + upper airway congestion. wheezing: that is moderate, is heard diffusely. Vital Signs: 13:34 BP 115 / 83; Pulse 76; Resp 19; Pulse Ox 99% on 2 lpm NC; ss 13:36 Temp 99.3(TE); Weight 45.36 kg (M); ss 14:07 Weight 54.43 kg (R); iw 14:49 BP 140 / 91; Pulse 95; Resp 20; Temp 98.9(TE); Pulse Ox 99% on 2 lpm NC; mh5 16:02 BP 126 / 64; Pulse 90; Resp 20 S; Pulse Ox 98% on R/A; jd3 17:19 BP 118 / 61; Pulse 88; Resp 18; Temp 97.5(TE); Pulse Ox 99% on 2 lpm NC; mh5 MDM: 15:18 Patient medically screened. kdr 15:37 Data reviewed: vital signs, nurses notes, lab test result(s), radiologic studies. kdr Counseling: I had a detailed discussion with the patient and/or guardian regarding: the historical points, exam findings, and any diagnostic results supporting the discharge/admit diagnosis, lab results, radiology results. 03/27 13:35 Order name: Amylase, Serum; Complete Time: 14:59 kdr 03/27 13:35 Order name: Basic Metabolic Panel; Complete Time: 14:59 kdr 03/27 13:35 Order name: Blood Culture Adult (2) kdr 03/27 13:35 Order name: CBC with Diff kdr 03/27 13:35 Order name: Ckmb; Complete Time: 14:59 kdr 03/27 13:35 Order name: CPK; Complete Time: 14:59 kdr 03/27 13:35 Order name: Lactate; Complete Time: 14:59 kdr 03/27 13:35 Order name: LFT's; Complete Time: 14:59 kdr 03/27 13:35 Order name: Lipase; Complete Time: 14:59 kdr 03/27 13:35 Order name: Procalcitonin; Complete Time: 15:14 kdr 03/27 13:35 Order name: Protime (+inr); Complete Time: 14:59 kdr 03/27 13:35 Order name: Ptt, Activated; Complete Time: 14:59 kdr 03/27 13:35 Order name: Troponin (emerg Dept Use Only); Complete Time: 14:59 kdr 03/27 13:35 Order name: Urine Microscopic Only; Complete Time: 15:35 kdr 03/27 13:35 Order name: Chest Single View XRAY; Complete Time: 14:59 kdr 03/27 13:35 Order name: Accucheck; Complete Time: 14:25 kdr 03/27 13:35 Order name: Cardiac monitoring; Complete Time: 14:25 kdr 03/27 13:36 Order name: ABG; Complete Time: 14:59 [facility] 03/27 14:16 Order name: Urinalysis; Complete Time: 15:35 [facility] 03/27 15:04 Order name: Urine Culture [facility] 03/27 15:34 Order name: SARS-COV-2 RT PCR; Complete Time: 15:35 [facility] 03/27 17:02 Order name: CBC Smear Scan [facility] 03/27 17:07 Order name: CT [facility] 03/27 13:35 Order name: EKG - Nurse/Tech; Complete Time: 14:25 kdr 03/27 13:35 Order name: IV Saline Lock - Large Bore; Complete Time: 14:25 kdr 03/27 13:35 Order name: Labs collected and sent; Complete Time: 14:25 [facility] 03/27 13:35 Order name: O2 Per Protocol; Complete Time: 14:25 [facility] 03/27 13:35 Order name: O2 Sat Monitoring; Complete Time: 14:32 kdr 03/27 13:35 Order name: Urine Dipstick-Ancillary (obtain specimen); Complete Time: 14:25 kdr Administered Medications: 14:15 Drug: NS 0.9% (30 ml/kg) 30 ml/kg Route: IV; Rate: bolus; Site: right forearm; ss 17:40 Follow up: Response: No adverse reaction; IV Status: Completed infusion; IV Intake: jd3 1500ml 14:15 Drug: Rocephin 1 grams Route: IV; Rate: calculated rate; Site: right forearm; ss 15:00 Follow up: Response: No adverse reaction; IV Status: Completed infusion jd3 14:19 Drug: SOLU-Medrol 125 mg Route: IVP; Site: right forearm; ss 15:00 Follow up: Response: No adverse reaction jd3 14:20 Drug: Albuterol - atroVENT (3:1) (2.5 mg - 0.5 mg) 3 ml Route: Nebulizer; ss 15:00 Follow up: Response: No adverse reaction jd3 14:23 Not Given (Other Intervention Used): Rocephin - (cefTRIAXone) 1 grams IVPB once over 30 ss mins; (mix in 50 mL NS) 16:11 Drug: AZITHromycin 500 mg Route: IVPB; Infused Over: 1 hrs; Site: right forearm; jd3 17:38 Follow up: Response: No adverse reaction; IV Status: Completed infusion jd3 Disposition: 03/27/20 15:18 Hospitalization ordered by Leandro Eagle for Inpatient Admission. Preliminary diagnosis are Altered mental status, unspecified, Pneumonia, unspecified organism, Dyspnea, Urinary tract infection, site not specified, Sepsis, unspecified organism. - Bed requested for Telemetry/MedSurg (Inpatient). - Status is Inpatient Admission. bp - Condition is Fair. - Problem is new. - Symptoms have improved. Signatures: Dispatcher [employer] EDMS Demond Marshall MD MD kdr Smirch, Shelby, RN RN ss Davies, Jonathon, RN RN jYuriy Guy RN RN Jorge Hillman, RN RN bp Corrections: (The following items were deleted from the chart) 14:26 13:37 CORONAVIRUS+MR.LAB.BRZ ordered. EDMS EDMS 16:04 15:18 Hospitalization Ordered by Leandro Eagle MD for Inpatient Admission. Preliminary ja1 diagnosis is Altered mental status, unspecified; Pneumonia, unspecified organism; Dyspnea; Urinary tract infection, site not specified; Sepsis, unspecified organism. Bed requested for Telemetry/MedSurg (Inpatient). Status is Inpatient Admission. Condition is Fair. Problem is new. Symptoms have improved. kdr 17:58 16:04 03/27/2020 15:18 Hospitalization Ordered by Leandro Eagle MD for Inpatient bp Admission. Preliminary diagnosis is Altered mental status, unspecified; Pneumonia, unspecified organism; Dyspnea; Urinary tract infection, site not specified; Sepsis, unspecified organism. Bed requested for Telemetry/MedSurg (Inpatient). Status is Inpatient Admission. Condition is Fair. Problem is new. Symptoms have improved. ja1
--- NOTE | 2020-03-27 15:19 | ER ---
Nurse's Notes [facility] Name: Nallely Hanks Age: 74 yrs Sex: Female : 1945 Arrival Date: 03/27/2020 Time: 13:31 Bed 5 Private MD: Diagnosis: Altered mental status, unspecified;Pneumonia, unspecified organism;Dyspnea;Urinary tract infection, site not specified;Sepsis, unspecified organism Presentation: 03/27 13:36 Acuity: PANTERA 2 ss 13:36 Chief complaint: EMS states: reports decreased appetite x 2 days. Pt appears to ss have difficulty breathing. Wheezes noted bilaterally. Coronavirus screen: difficulty breathing, Client presents with at least one sign or symptom that may indicate coronavirus-19. Standard/surgical mask placed on the client. Provider contacted for isolation considerations. Ebola Screen: Patient denies exposure to infectious person. Patient denies travel to an Ebola-affected area in the 21 days before illness onset. Initial Sepsis Screen: Does the patient meet any 2 criteria? RR > 20 per min. HR > 90 bpm. Does the patient have a suspected source of infection? Yes: Productive cough/pneumonia Dysuria/Frequency/Urgency/UTI. Risk Assessment: Do you want to hurt yourself or someone else? Patient reports no desire to harm self or others. Note EMS states that was poor historian on scene. Onset of symptoms was March 25, 2020. 13:36 Method Of Arrival: EMS: [facility] Triage Assessment: 16:02 Respiratory: Reports labored breathing Onset: The symptoms/episode began/occurred jd3 gradually, the patient has moderate shortness of breath. Historical: - Allergies: 13:34 Codeine; ss 13:34 PENICILLINS; ss - PMHx: 13:34 CAD; CVA; Depression; Hypertension; Hypothyroidism; L sided paralysis; ss - PSHx: 13:34 Cholecystectomy; ss - Immunization history:: Adult Immunizations up to date. - Social history:: Smoking status: unknown. Screenin:02 Abuse screen: Denies threats or abuse. Nutritional screening: No deficits noted. jd3 Tuberculosis screening: No symptoms or risk factors identified. Fall Risk Secondary diagnosis (15 points) impaired mobility, Gait- Impaired (20 pts.). Mental Status- Overestimates/Forgets Limitations (15 pts.). Total Napier Fall Scale indicates High Risk Score (45 or more points). Fall prevention measures have been instituted. Side Rails Up X 2 Placed Close to Nursing Station Frequent Obs/Assessments Occuring Family Present and informed to notify staff if the need to leave the bedside. Assessment: 13:55 Reassessment: Pt cleaned of foul smelling urinary incontinence. ss 14:00 General: Appears distressed, uncomfortable, slender, Behavior is anxious. Pain: ss Aggravated by Pt is unable to communicate pain type and where as she only says, "yes \\T\\ No" at times. Pt appears uncomfortable when sitting up straight. Neuro: Level of Consciousness is. Neuro: Paralysis in left arm(s) leg(s). Cardiovascular: Rhythm is regular. Respiratory: Airway is patent Respiratory effort is even, labored, Respiratory pattern is symmetrical. Respiratory: Breath sounds with wheezes bilaterally. GI: Abdomen is round Patient currently denies diarrhea, vomiting, Parent/caregiver reports the patient having decreased appetite x 2 days. : after cleaning patient of urinary incontinence, it is noted that urine is foul, dark and purulent. EENT: Oral mucosa is dry. 14:26 Reassessment: EMS reports that patient's O2 on RA was "In the 80's". ss 16:00 Reassessment: No changes from previously documented assessment. Patient and/or family jd3 updated on plan of care and expected duration. Pain level reassessed. Neuro: Level of Consciousness is awake, Oriented to. Cardiovascular: Denies chest pain, Capillary refill < 3 seconds Patient's skin is warm and dry. Respiratory: Airway is patent Respiratory effort is even, labored, Respiratory pattern is symmetrical, Breath sounds with wheezes bilaterally. 17:30 Reassessment: Patient appears in no apparent distress at this time. No changes from jd3 previously documented assessment. Patient and/or family updated on plan of care and expected duration. Pain level reassessed. awaiting admission. pt appears less labored with respirations. Vital Signs: 13:34 BP 115 / 83; Pulse 76; Resp 19; Pulse Ox 99% on 2 lpm NC; ss 13:36 Temp 99.3(TE); Weight 45.36 kg (M); ss 14:07 Weight 54.43 kg (R); iw 14:49 BP 140 / 91; Pulse 95; Resp 20; Temp 98.9(TE); Pulse Ox 99% on 2 lpm NC; mh5 16:02 BP 126 / 64; Pulse 90; Resp 20 S; Pulse Ox 98% on R/A; jd3 17:19 BP 118 / 61; Pulse 88; Resp 18; Temp 97.5(TE); Pulse Ox 99% on 2 lpm NC; mh5 ED Course: 13:31 Patient arrived in ED. ss 13:34 Demond Marshall MD is Attending Physician. kdr 13:36 Triage completed. ss 13:36 Arm band placed on right wrist. ss 13:54 An Basilio, RN is Primary Nurse. ss 13:54 Mack cath inserted, using sterile technique, 16 Fr., by ne, balloon inflated, to ss gravity drainage, Patient tolerated well. Oxygen administration via nasal cannula \\T\\ 2L/min. 14:00 Patient has correct armband on for positive identification. Placed in gown. Bed in low ss position. Call light in reach. Side rails up X2. Adult w/ patient. 14:06 Chest Single View XRAY In Process Unspecified. EDMS 14:15 pupil personnel worker on. Pulse ox on. NIBP on. ss 14:41 Primary Nurse role handed off by An Basilio, JOSE jd3 14:41 Henri Malloy RN is Primary Nurse. jd3 14:48 EKG done, by ED staff, reviewed by Demond Marshall MD. 5 14:49 Warm blanket given. 5 15:16 Leandro Eagle MD is Hospitalizing Provider. kdr 17:37 No provider procedures requiring assistance completed. Patient admitted, IV remains in jd3 place. Administered Medications: 14:15 Drug: NS 0.9% (30 ml/kg) 30 ml/kg Route: IV; Rate: bolus; Site: right forearm; ss 17:40 Follow up: Response: No adverse reaction; IV Status: Completed infusion; IV Intake: jd3 1500ml 14:15 Drug: Rocephin 1 grams Route: IV; Rate: calculated rate; Site: right forearm; ss 15:00 Follow up: Response: No adverse reaction; IV Status: Completed infusion jd3 14:19 Drug: SOLU-Medrol 125 mg Route: IVP; Site: right forearm; ss 15:00 Follow up: Response: No adverse reaction jd3 14:20 Drug: Albuterol - atroVENT (3:1) (2.5 mg - 0.5 mg) 3 ml Route: Nebulizer; ss 15:00 Follow up: Response: No adverse reaction jd3 14:23 Not Given (Other Intervention Used): Rocephin - (cefTRIAXone) 1 grams IVPB once over 30 ss mins; (mix in 50 mL NS) 16:11 Drug: AZITHromycin 500 mg Route: IVPB; Infused Over: 1 hrs; Site: right forearm; jd3 17:38 Follow up: Response: No adverse reaction; IV Status: Completed infusion jd3 Intake: 17:40 IV: 1500ml; Total: 1500ml. jd3 Outcome: 15:18 Decision to Hospitalize by Provider. kdr 17:37 Admitted to Med/surg accompanied by tech, via stretcher, room 225, with oxygen, with jd3 chart, Report called to Blanca GARCIA 17:37 Condition: stable 17:37 Instructed on the need for admit. 17:58 Patient left the ED. bp Signatures: Dispatcher [employer] EDMS Demond Marshall MD MD [facility] Cande Crow, JOSE GARCIA An Basilio RN RN ss Martinez, Maria [facility] Henri Malloy RN RN jd3 Peltier, Brian, RN RN bp Corrections: (The following items were deleted from the chart) 16:03 16:02 Fall Risk Ambulatory Aid- None/Bed Rest/Nurse Assist (0 pts). Gait- Normal/Bed jd3 Rest/Wheelchair (0 pts) Mental Status- Oriented to own ability (0 pts). Total Napier Fall Scale indicates No Risk (0-24 pts). jd3 17:31 16:00 Neuro: Level of Consciousness is awake, Oriented to person, jd3 jd3 17:40 17:39 Response: No adverse reaction; IV Status: Completed infusion; IV Intake: 1000ml jd3 jd3
[2020-03-27] MEDS ORDERED: AZITHROMYCIN IV 500 MG in NA CHLORIDE 0.9% 250 ML IVPB ONE (16:00)
--- NOTE | 2020-03-27 16:02 | P.HP ---
Certification for Inpatient Patient admitted to: Inpatient With expected LOS: >2 Midnights Practitioner: I am a practitioner with admitting privileges, knowledge of patient current condition, hospital course, and medical plan of care. Services: Services provided to patient in accordance with Admission requirements found in Title 42 Section 412.3 of the Code of Federal Regulations Patient History Date of Service: 03/27/20 Reason for admission: Sepsis, Pneumonia, UTI History of Present Illness: 74yo female, bedridden, s/p CVA with L hemiplegia, chronic afib who presented to ED via EMS due to AMS, unresponsive/minimally responsive. is not at bedside and family is unreachable by phone at this time. In the ED, patient was found to be septic, with leukocytosis, b/l pneumonia on x-ray, urine consistent with UTI, lactate: 3.1. She was >92% on RA, HR: 90s, BP: 115/83. ED physician reported was poor historian and didn't provide much information before leaving ED. Patient is COVID negative. She was given sepsis bolus, and received Rocephin and azithromycin in the ED. I spoke with her pharmacy in her home medications recently filled are: xarelto 20mg daily hctz 25mg daily norvasc 10mg reglan 5mg BID omeprazole 20mg daily amiodarone 200mg daily Allergies codeine Allergy (Severe, Verified 03/20/17 00:03) sob Penicillins Allergy (Intermediate, Verified 03/20/17 00:03) swelling Home medications list reviewed: Yes Home Medications: Amiodarone HCl [Pacerone] 200 mg PO DAILY 10/29/17 Atorvastatin Calcium [Lipitor] 40 mg PO DAILY 10/29/17 Rivaroxaban [Xarelto*] 20 mg PO DAILY 10/29/17 hydroCHLOROthiazide [Hydrochlorothiazide*] 25 mg PO DAILY PRN 10/29/17 Metoclopramide HCl [Reglan] 5 mg PO BID #60 tablet 11/01/17 - Past Medical/Surgical History Diabetic: No -: CAD -: CVA -: HTN -: Afib -: leona -: hysterectomy -: appy - Family History Mother -: Diabetes - Social History Smoking Status: Unknown if ever smoked Place of Residence: Home Review of Systems is unable to be obtained Physical Examination - Physical Exam General: Cachectic, Unresponsive (Minimally responsive, grunting, grunts yes/no to some questions, squeezes my hand on command) HEENT: Sclerae nonicteric Respiratory: Crackles/rales (With wheeze), Other (Mildly labored on room air) Cardiovascular: No edema, Irregular heart rate/rhythm Gastrointestinal: Soft and benign, Non-distended, No tenderness Musculoskeletal: No tenderness Integumentary: No rashes Neurological: Other (Left hemiplegia, moving the right upper and lower extremities.) Urinary: Mack catheter (In place) - Studies Laboratory Data (last 24 hrs) 03/27/20 14:06: PT 22.3 H, INR 1.91, APTT 31.7 03/27/20 14:06: WBC 17.9 H, Hgb 10.5 L, Hct 32.4 L, Plt Count 252 03/27/20 14:06: Sodium 133 L, Potassium 3.7, BUN 13, Creatinine 0.82, Glucose 145 H, Total Bilirubin 1.3 H, AST 243 H, ALT 167 H, Alkaline Phosphatase 222 H, Amylase 33, Lipase 44 L Assessment and Plan - Advance Directives Does patient have a Living Will: No Does patient have a Durable POA for Healthcare: No Physician Review Additional Text: Severe sepsis secondary to bilateral pneumonia and urinary tract infection Chronic atrial fibrillation. Prior CVA with left hemiplegia. Bed ridden HTN -received sepsis bolus, and Rocephin and azithromycin in the ED -continue empiric antibiotics for community-acquired pneumonia and UTI -continue IV fluids at 100 mL/hr -repeat lactate -patient minimally responsive on exam, unable to get a hold of family for further information. Will obtain CT chest, abdomen, pelvis -vitals rather stable, not hypoxemic, occasional wheeze - will give nebs -COVID negative -restart antihypertensives as appropriate, hold for now -continue anticoagulation for afib Dispo: anticipate hospitalization > 2days Time Spent Managing Pts Care (In Minutes): 55
[2020-03-27 17:02] LABS: Blood Morphology Comment NOTED (NOT SEEN); Platelet Estimate ADEQ; Poikilocytosis 1+; White Blood Cell Scan OK (OK)
--- NOTE | 2020-03-27 17:06 | RAD REPORT ---
EXAM DESCRIPTION: CT - CT CHEST,ABD,PELVIS W/O - 03/27/2020 4:37 pm CLINICAL HISTORY: septic, minimally responsive, loss of appetite, difficulty breathing, paralysis, prior cholecystectom y COMPARISON: Chest Single View dated 03/27/2020; Abdomen Pelvis W Contrast dated 10/29/2017; Abdomen Pelvis W Contrast dated 04/24/2017 TECHNIQUE: Axial noncontrast 5 millimeter thick images of the chest, abdomen and pelvis obtained. Sagittal and c oronal reformatted images generated and reviewed. The CT scan was performed using dose optimization techniques as appropriate to a performed exam incl uding one or more of the following: Automated exposure control, adjustment of the mA and/or kV accord ing to patient size (this includes techniques or standardized protocols for targeted exams where dose is matched to indication/reason for exam) and use of iterative reconstruction technique. FINDINGS: Airspace opacification is present in the right upper lobe moderate severity. This is primarily periph erally distributed. There is a focus of airspace opacification in the right middle lobe abutting the right hemidiaphragm. Peripheral airspace opacification to much lesser degree seen in the left upper l obe. Small to moderate left pleural effusion is present with partial atelectasis of the left lower lo be. No malignant mass finding seen. Mild cardiomegaly is present without pericardial effusion. No abnorma l mediastinal or hilar mass identified. No chest wall mass or axillary lymphadenopathy. The liver, spleen and pancreas showed no acute findings. Cholecystectomy clips are present with no ab normal biliary tree dilatation identified. No obstructing or nonobstructing renal calculi. No hydronephrosis. Isodense masses and pyelonephritis are not excluded on noncontrast imaging. Urinary bladder is fully contracted around a Mack catheter . Uterus is absent. Ovaries are absent or atrophic. Contrast and stool filled but do not abnormally dilate the right-side of the colon. No colon wall thi ckening or mass. Contrast and stool distends the rectum. Stomach, small bowel and colon are normal in diameter. No acute bowel finding identified on this study. Small amount of ascites is present. No free air or pneumatosis. Minimal subcutaneous fatty tissue flu id retention. No acute vascular finding on noncontrast imaging. Impacted subcapital left femoral neck fracture is p resent. There is impaction. Fracture line is still visible. No callus formation. Age of the fracture is uncertain but is not fully healed. Patient has 30% wedge compression of the L4 and L2 bodies. Age is uncertain. Follow wedge compression approximately 20% of T11 with 50% compression fracture of T6. Age uncertain. The lumbar compression fractures are new from 2017 but otherwise uncertain in age. IMPRESSION: Right upper lobe pneumonia changes are present. There is patchy pneumonia as well in the right middle lobe and left upper lobe. Small to moderate left pleural effusion seen with partial ate lectasis the left lower lobe. Based on the lung parenchymal pattern, COVID-19 pneumonia cannot be excluded and needs correlation wi th clinical suspicion and any testing that may have been done. Small amount of ascites is present within the abdomen. No acute abdominal or pelvic finding seen. Left femoral neck subcapital fracture with impaction. Fracture is not healed but age is uncertain. Mu ltiple thoracic and lumbar vertebral body compression fractures are present age also undetermined.
[2020-03-27] MEDS ORDERED: NA CHLORIDE 0.9% 500 ML ONE (17:54)
[2020-03-27] MEDS ORDERED: NA CHLORIDE 0.9% 1,000 ML IV SCH (18:18)
[2020-03-27] MEDS ORDERED: NA CHLORIDE 0.9% 1,000 ML IV ONE (18:35)
[2020-03-27] MEDS: NA CHLORIDE 0.9% 1,000 ML IV SCH ×2 (18:37→23:21)
[2020-03-27] MEDS ORDERED: KCL 20 MEQ/100 mL IVPB 20 MEQ/100 ML BAG IV SCH (19:00)
[2020-03-27] MEDS: ENOXAPARIN 60 MG/0.6 ML SQ SCH (19:48)
[2020-03-27] MEDS: ALBUTEROL 2.5 MG/3 ML NEB SOL NEB SCH (20:40)
[2020-03-28] MEDS: NA CHLORIDE 0.9% 1,000 ML IV SCH ×3 (00:17→07:57)
[2020-03-28 00:46] VITALS: BMI 23.4
[2020-03-28] MEDS ORDERED: FENTANYL CITR 100 MCG/2 ML IV ONE (01:00)
[2020-03-28] MEDS: ALBUTEROL 2.5 MG/3 ML NEB SOL NEB SCH ×3 (02:50→13:32)
[2020-03-28 04:53] LABS: Basophils % 0.3 % (0-1.3); Hematocrit 28.1 % (36.0-45.0); Lymphocytes % 4.4 % (15.3-44.8); MPV 8.4 fL (7.6-11.3); RBC Red Blood Cell Count 3.71 M/uL (3.86-4.86)
[2020-03-28 04:54] LABS: Protime INR 2.24
[2020-03-28 05:09] LABS: Albumin 2.3 g/dL (3.4-5.0); Bilirubin Total 1.8 mg/dL (0.2-1.0); Magnesium 1.9 mg/dL (1.8-2.4); Protein, Total 8.4 g/dL (6.4-8.2)
[2020-03-28] MEDS: FENTANYL CITR 100 MCG/2 ML IV PRN ×3 (06:03→16:22)
[2020-03-28 06:22] LABS: Blood Morphology Comment NOT SEEN (NOT SEEN); Platelet Estimate ADEQ
--- NOTE | 2020-03-28 07:11 | P.INFCA ---
Sepsis Focused Assessment - Focused Assessment Complete? Sepsis Focused Assessment Completed?: Yes - Sepsis Screen Result Severe Sepsis: Positive Septic Shock: Negative - Evaluation Current stage of sepsis: Severe sepsis - Vital Signs Reviewed: Yes Respiratory Rate: 24 O2 Sat by Pulse Oximetry: 93 - Examination Date exam was performed: 03/27/20 Time exam was performed: 20:00 Heart: Regular rate/rhythm Lungs: Diminished air movement, Wheezes, Other (tachypnea) Peripheral pulses: 3+ Normal Peripheral pulse location: Radial Capillary refill: <2 Seconds Skin examination: Unremarkable
[2020-03-28] MEDS: ENOXAPARIN 60 MG/0.6 ML SQ SCH (07:53)
[2020-03-28] MEDS ORDERED: AZITHROMYCIN IV 500 MG in NA CHLORIDE 0.9% 250 ML IVPB SCH (09:00)
[2020-03-28] MEDS ORDERED: CEFTRIAXONE/SWI 1gm 1 GM/10 ML SYR IV SCH (09:00)
[2020-03-28] MEDS ORDERED: CEFTRIAXONE 1 GM/NS 50 ML 1 GM/50 ML BAG IV SCH (09:00)
--- NOTE | 2020-03-28 10:09 | RAD REPORT ---
EXAM DESCRIPTION: US - Liver Only - 03/28/2020 8:31 am CLINICAL HISTORY: elevated LFTs COMPARISON: No comparisons FINDINGS: The liver demonstrates diffuse fatty infiltration.No focal liver lesion or intrahepatic bi liary dilatation.Blood flow could not be confirmed within the portal vein. The spleen measures 7 cm. Trace ascites is present. IMPRESSION: Mild diffuse fatty liver. Blood flow could not be confirmed within the portal vein. CT imaging of the liver could be obtained for further assessment. Trace ascites.
[2020-03-28 12:26] VITALS: BP 125/57; TEMP 98
[2020-03-28 15:09] VITALS: O2SAT 91
--- NOTE | 2020-03-28 15:41 | P.DS ---
Admission Date: 03/27/20 Discharge Date: 03/28/20 Disposition: HOSPICE-MEDICAL FACILITY Discharge Condition: CRITICAL Reason for Admission: Sepsis, Pneumonia, UTI Consultations: Hospice Procedures: CT chest/abdomen/pelvis: Right upper lobe pneumonia, patchy pneumonia as well on the right middle lobe and left upper lobe. Small to moderate left pleural effusion seen with partial atelectasis in the left lower lobe. Small amount of ascites is present within the abdomen. Left femoral neck subcapital fracture with impaction. Multiple thoracic and lumbar vertebral body compression fractures are present, age also undetermined. Brief History of Present Illness: 74yo female, bedridden, s/p CVA with L hemiplegia, chronic afib who presented to ED via EMS due to AMS, unresponsive/minimally responsive. In the ED, patient was found to have severe sepsis, with leukocytosis, b/l pneumonia on x-ray, urine consistent with UTI, lactate: 3.1. She was >92% on RA, HR: 90s, BP: 115/83 . ED physician reported was poor historian and didn't provide much information before leaving ED. Patient is COVID negative. Hospital Course: Patient was admitted and given multiple boluses of IV fluid for a uptrending lactic acidosis peaking at 7.6. This morning her clinical exam was fairly unchanged, still minimally responsive, grunting yes/no inconsistently. Her white count continued to increase and she had worsening of her LFTs. Her family was contacted and the patient's clinical status was discussed with the family. The patient's and her son stated that patient would not want to continue to "go through this", asked for comfort measures only at this point, stated she would want to be DNR, and wanted to pursue hospice. Hospice was consulted, and patient is discharged to inpatient hospice. Vital Signs/Physical Exam: Temp Pulse Resp BP Pulse Ox 98 F 96 H 20 125/57 L 95 03/28/20 12:00 03/28/20 12:00 03/28/20 12:22 03/28/20 12:00 03/28/20 12:22 General: Unresponsive (Minimally or responsive intermittently with yes/no grunts) Respiratory: Crackles/rales ([place]ettinger throughout, diminished breath sounds, tachypneic 30-40s at times) Cardiovascular: No edema, Regular rate/rhythm Gastrointestinal: Soft and benign, No tenderness, Distended (Mild) Musculoskeletal: No erythema Integumentary: No rashes Neurological: Abnormal speech (grunting yes/no intermittently) Urinary: Mack catheter Laboratory Data at Discharge: WBC 22.0 K/uL (4.3-10.9) H* D 03/28/20 04:40 Hgb 9.1 g/dL (12.0-15.0) L 03/28/20 04:40 Hct 28.1 % (36.0-45.0) L 03/28/20 04:40 Plt Count 215 K/uL (152-406) 03/28/20 04:40 PT 26.0 SECONDS (9.5-12.5) H 03/28/20 04:40 INR 2.24 03/28/20 04:40 APTT 31.7 SECONDS (24.3-36.9) 03/27/20 14:06 Sodium 137 mmol/L (136-145) 03/28/20 04:40 Potassium 4.0 mmol/L (3.5-5.1) 03/28/20 04:40 BUN 19 mg/dL (7-18) H 03/28/20 04:40 Creatinine 0.82 mg/dL (0.55-1.3) 03/28/20 04:40 Glucose 165 mg/dL (74-106) H 03/28/20 04:40 Magnesium 1.9 mg/dL (1.8-2.4) 03/28/20 04:40 Total Bilirubin 1.8 mg/dL (0.2-1.0) H 03/28/20 04:40 AST 572 U/L (15-37) H* D 03/28/20 04:40 ALT 375 U/L (12-78) H* D 03/28/20 04:40 Alkaline Phosphatase 189 U/L (45-117) H 03/28/20 04:40 Troponin I 0.15 ng/mL (0.0-0.045) H 03/28/20 01:35 Amylase 33 U/L (25-115) 03/27/20 14:06 Lipase 44 U/L (73-393) L 03/27/20 14:06 Home Medications: Amiodarone HCl [Cordarone*] 1 tab PO DAILY 03/28/20 Amlodipine [Norvasc*] 1 tab PO DAILY 03/28/20 Duloxetine HCl [Cymbalta] 60 mg PO DAILY 03/28/20 Metoclopramide [Reglan*] 1 tab PO BID 03/28/20 Omeprazole 1 tab PO DAILY 03/28/20 Rivaroxaban [Xarelto] 20 mg PO DAILY 03/28/20 hydroCHLOROthiazide [Hydrodiuril*] 1 tab PO DAILY 03/28/20 Followup: Unknown,U [Primary Care Provider] - Time spent managing pt's care (in minutes): 35
[2020-03-28] MEDS ORDERED: ENSURE ENLIVE 237 ML CAN PO SCH (21:00)
== END 2020-03-28 16:32 | disposition hospice, inpatient (51) | DRG 871 ==
LOC: ER 13:28 → ERHOLD 15:48 → 2ND 17:40
PROVIDERS: ADMIT Hospitalist; ATTEND Hospitalist
DX: A41.9 Sepsis, unspecified organism (principal); J18.9 Pneumonia, unspecified organism; I69.354 Hemiplegia and hemiparesis following cerebral infarction affecting left non-dominant side; I48.20 Chronic atrial fibrillation, unspecified; N39.0 Urinary tract infection, site not specified; R64 Cachexia; I10 Essential (primary) hypertension; I25.10 Atherosclerotic heart disease of native coronary artery without angina pectoris; R65.20 Severe sepsis without septic shock; Z66 Do not resuscitate; Z88.5 Allergy status to narcotic agent; Z88.0 Allergy status to penicillin; Z90.49 Acquired absence of other specified parts of digestive tract; Z74.01 Bed confinement status; Z79.01 Long term (current) use of anticoagulants; Z79.899 Other long term (current) drug therapy; Z90.710 Acquired absence of both cervix and uterus; Z68.23 Body mass index [BMI] 23.0-23.9, adult; Z20.828 Contact with and (suspected) exposure to other viral communicable diseases
CPT/HCPCS: 36415; 51702; 71045; 71250; 74176; 76705; 80048; 80053; 80076; 81003; 81015; 82150; 82550; 82553; 82805; 83605; 83690; 83735; 84145; 84484; 85025; 85610; 85730; 87040; 87077; 87086; 87088; 87186; 93005; 94640; 94760; 96365; 96366; 96367; 96368; 96375; 99285; J0456; J0696; J1650; J2930; J3010; J3480; J7030; J7040; J7050; U0003

== ENCOUNTER 2020-03-28 16:32 | Inpatient (IN) | payer OTHER ==
--- OUTSIDE RECORDS SUMMARY | 2020-03-28 16:38 | XMS REPORT | Continuity of Care Document ---
:1945 Author Organization [employer] [facility] Care Team Providers Name Role Phone [employer] [facility] Unavailable Un available Problems Problem Status Onset Classification Date Comments Sourc e Date Reported 600 UNITS Active 12/01/19 [facility] 16 F/U Active 11/04/19 [facility] 16 F/U 3 MONTHS Active 08/05/19 [facility] 16 FLUORO GUIDED LEFT Active 07/06/19 [facility] GENICULAR RFA WITH 16 CO PROCEDURE Active 06/27/19 [facility] 16 NEW PT EVAL Active 06/13/19 [facility] 16 DC F/U Active 05/18/20 [facility] 15 DECONDITION Active 02/18/20 [facility] 15 SYNCOPE, Active 02/15/20 [facility] CVA Active 05/27/[address], [facility] Atrial Resolved Problem 02/20/2016 [facility] fibrillation [facility] (disorder) [place], [facility] Cerebral Active Problem 02/20/2016 [facility] infarction [facility] (disorder) [place], [facility] 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 (disorder) [facility], [facility] Dysphagia Active Problem 02/20/2016 [facility] (disorder) [facility], [facility] Hemiplegia Active Problem 02/20/2016 [facility] (disorder) Hypertensive Active Problem 02/20/2016 [place] disorder, systemic edical arterial Center, (disorder) [facility] Seizure (finding) Active Problem 02/20/2016 [facility], [facility] Final: 03/06/2015 [facility] SYNCOPE AND Active [facility] COLLAPSE [facility] OTHER Active [facility] CEREBROVASCULAR DISEASE OTHER CHRONIC [...] 2016 Capsule [Cymbalta] cap, 3 Refill(s), Pharmacy: [facility] [id number] duloxetine 30 MG 30 mg = 1 cap, Active 11/03/ [facility] Enteric Coated PO, Bedtime, 2015 Capsule [Cymbalta] Pls start taking it once you run out of Lyrica, # 30 cap, 3 Refill(s), [facility] [id number] incobotulinumtoxin 600 unit, Inactive [facility] A Route: IM, 2016 ONCALL, Dosing Weight 53.182, kg, Start date: 09/23/15 16:00:00 CDT sertraline 25 mg 25 mg = 1 tab, Active 08/04/ [facility] oral tablet PO, Daily, # 30 2016 tab, 1 Refill(s), [facility] [id number] lisinopril 20 mg 20 mg = 1 tab, Active [facility] oral tablet PO, BID, # 60 2016 tab, 0 Refill(s), [facility] [id number] Senna-gen 8.6 mg 8.6 mg = 1 tab, Active 08/04[facility] oral tablet PO, Bedtime, 2016 [...] MG of Oral Tablet acetaminophen. (Same as: [place] 325/10) Lorazepam Notes: (Same No Longer [facility] as: Ativan) Active 2014 Phenytoin Notes: (Same No Longer [facility] as: Dilantin) Active 2014 Concentration = 50mg/ml Do NOT infuse faster than 50 mg/min MEDICATION WASTE Product Size: 250 mg Product Wasted: _6__ mg Phenobarbital Notes: (Same No Longer [facility] as: Barbita) Active 2014 Acetaminophen 325 Notes: (Same No Longer [facility] MG / Hydrocodone as: [place] Active 2014 Bitartrate 5 MG 325/5) Do not Oral Tablet exceed 4gm/day of acetaminophen. Acetaminophen Notes: Do not No Longer [facility] exceed 4 Active 2014 gm/day. (Same as: Tylenol) Saline Flush 0.9% Notes: (Same No Longer [facility] as: BD Active 2014 Posiflush) senna 8.6 mg oral 8.6 mg = 1 tab, Active [place] tablet PO, Bedtime, 0 2014 Medical Refill(s) Center Regular Insulin, 5 unit, SUB-Q, Active [place] Human 100 UNT/ML TID-Before 2014 [facility] francis Injectable Solution Meals, PRN C enter Blood Glucose Results, 0 Refill(s) Clonidine 0.1 mg = 1 tab, Active [place] as Hydrochloride 0.1 PO, Q12H, 0 2014 Me dical MG Oral Tablet Refill(s) Center Docusate Sodium 100 100 mg = 1 cap, Active [facility] MG Oral Capsule PO, BID, 0 2014 Medic al [Colace] Refill(s) Center lisinopril 20 mg 40 mg = 2 tab, Active [facility] oral tablet PO, Daily, 0 2014 Medical Refill(s) Center Hydralazine PO, Q8H, 0 Active [place] Hydrochloride 50 MG Refill(s) 2015 Me dical Oral Tablet Center Hydralazine Notes: ([place] Hydrochloride 25 MG as: Apresoline) Active 2014 Medical Oral Tablet May interfere Cente r w/enteral feedings Take With Food cloNIDine 0.1 mg Notes: (Same No Longer [facility] oral tablet As: Catapres) Active 2014 Medica l Center Docusate Sodium 100 Notes: (Same No Longer 02/19 [facility] MG Oral Capsule as: Colace) (Do Active 2014 Medical [Colace] Not Crush) Center senna 8.6 mg oral Notes: (Same No Longer [facility] tablet as: Senokot) Active 2014 Medical Center Bisacodyl Notes: (Same [place] Longer [place] As: Dulcolax, Active 2014 Medical Bisco-Lax) Center Prinivil Notes: (Same No Longer [place] as: Prinivil, Active 2014 Medical Zestril) [place] influenza virus Notes: (Same Inactive [place] vaccine, as: Fluzone 2014 [facility] inactivated Quadrivalent) Center For 3 years of [...] other Sulfamethoxazole 1 tab, PO, No Longer [place] 800 MG / [id number], X 4 Active 2014 Medical Trimethoprim 160 MG day, # 8 tab, 0 Center Oral Tablet Refill(s), [Bactrim] other Lisinopril Notes: (Same No Longer [facility] as as: Prinivil, Active 2014 Medical Zestril) [place] Levetiracetam 500 Notes: (Same No Longer [place] MG Oral Tablet as:Keppra) Active 2014 Medica l [Keppra] Center metoprolol tartrate Notes: (Same No Longer 02/17 [place] as: Lopressor) Active 2014 Medical Compounded Center Product - formulation not commercially available gabapentin 300 MG Notes: (Same No Longer [place] Oral Capsule as: Neurontin) Active 2014 [facility] Sulfamethoxazole Notes: One DS No Longer [place] 800 MG / tablet = Active 2014 Medical Trimethoprim 160 MG trimethoprim Center Oral Tablet 160mg + [Bactrim] sulfamethoxazol e 800 mg Dose based on trimethoprim component On empty stomach with a glass of water. 1 hr before meals (Same As: Bactrim DS, Septra DS) Morphine Notes: (Same No Longer [place] as:MORPhine Active 2014 Medical Sulfate) Center Zofran Notes: (Same No Longer [place] as: Zofran) Active 2014 Medical MEDICATION Center WASTE Product Size: 4 mg Product Wasted: ___ mg Milk of Magnesia Notes: (Same No Longer [place] as: Milk of Active 2014 Medical Magnesia, MOM) Center Clonidine Notes: ([facility] Hydrochloride 0.1 As: Catapres) Active 2014 Medical MG Oral Tablet Center cloNIDine 0.1 mg Notes: (Same No Longer [place] oral tablet As: Catapres) Active 2014 Medica l Center aspirin 81 mg Notes: Do not No Longer [place] tablet, enteric crush or chew. Active 2014 M edical coated (Same As: [place] Ecotrin) Cordarone Notes: (Same [facility] Long[facility] as: Cordarone) Active 2014 Medical [place] Morphine Notes: (Same Inactive [place] as:MORPhine 2014 Medical Sulfate) [place] Tylenol Notes: Max Inactive [place] acetaminophen = 2015 Medical 4000 mg/day (4 Center gm/day). (Same as: Tylenol) tramadol 50 mg, 1 tab, No Longer [facility] hydrochloride 50 MG Route: PO, Drug Active 2014 Medical Oral Tablet form: TAB, Q6H, Cent er [Ultram] Dosing Weight 63.727, kg, PRN Pain Score 1-3, Start date: 02/16/15 10:59:00, Duration: 30 day, Stop date: 03/18/15 10:58:00 Lipitor Notes: (Same No Longer [place] as: Lipitor) Active 2014 Medical Center remove patch Notes: Remove No Longer [place] patch 12 hours Active 2014 [facility] after [place] application each day. Keppra Notes: Same as [facility] Longer [facility] Kepp[facility] Mix Active 2014 Medical with 100 mL NS, Center LR or D5W MEDICATION WASTE Product Size: 500 mg Product Wasted: ___ mg gabapentin 300 MG 300 mg = 1 cap, Active [place] Oral Capsule PO, BID 2015 Medical Center metoprolol tartrate 100 mg = 1 tab, No Longer [place] 100 mg oral tablet PO, BID Active 2014 Medic al Center Milk of Magnesia 30 mL, PO, No Longer [facility] Daily, PRN as Active 2014 Medical needed for Center constipation lisinopril 10 mg 10 mg = 1 tab, No Longer [place] oral tablet PO, Daily Active 2014 Medical Center Clonidine 100 No Longer [place] Hydrochloride 0.1 Active 2014 Medica l MG Oral Tablet Center Acetaminophen Special Active [place] Instructions: 2015 Medical suppository PRN Center mild pain or fever greater than 100.1F Lidocaine Special Active [facility] Hydrochloride 0.05 Instructions: 2015 Medical MG/MG Transdermal Apply to lower Center Patch [Lidoderm] back and left knee tramadol 50 mg = 1 tab, Active [facility] hydrochloride 50 MG PO, Q6H, PRN 2015 Medical Oral Tablet Pain Center Acetaminophen 325 650 mg = 2 tab, Active [place] MG Oral Tablet PO, Q6H, PRN 2015 Medi franc[place] [Tylenol] Pain Center insulin detemir 100 10 unit, SUB-Q, Active 01/26 [place] UNT/ML Injectable Daily 2015 Medica l Solution [Levemir] Cente r Hydralazine Notes: (Same [place] Long[place] as: Apresoline) Active 2014 Medical Push over 5 Center minutes Xarelto Notes: (Same No Longer [facility] as: Xarelto) Active 2014 Medical Administer with Center food potassium chloride Notes: (Same Inactive [facility] as: K-Dur 20) 2015 Medical "Do Not Crush" Center With food and full glass of water Levetiracetam 500 500 mg, Route: Inactive [place] MG Oral Tablet IV, Q12H, kg, 2015 [...] 81 MG Notes: Do not No Longer [place] Enteric Coated crush or chew. Active 2014 Nd dical Tablet (Same As: [place] Ecotrin) Amiodarone Notes: (Same No Longer [place] as as: Cordarone) Active 2014 [facility] Ciprofloxacin Notes: Do not No Longer [place] refrigerate Active 2014 [facility] Hydralazine Notes: (Same [place] Long[place] Hydrochloride 10 MG as: Apresoline) Active 2014 Medical Oral Tablet May interfere Cente r w/enteral feedings. Take With Food Clonidine Notes: (Same No Longer [place] Hydrochloride 0.1 As: Catapres) Active 2014 Medical MG Oral Tablet [place] tramadol Notes: Not to [place] Longer [place] hydrochloride 50 MG exceed Active 2014 Medi [place] Oral Tablet 400mg/day. Center (Same As: [facility]) Insulin regular 60 units) No Longer [place] Stable for 28 Active 2014 Medical days at room Center temperature Expires in days from D ate Glucagon 1 mg, Route: No Longer [place] IM, Drug form: Active 2014 Medical PDR/INJ, PRN, [place] Dosing Weight 63.727, kg, PRN Blood Glucose Results, Start date: 02/15/15 2:09:00, Duration: 30 day, Stop date: 03/17/15 2:08:00 Dextrose 50% 25 gm, 50 mL, No Longer [place] Syringe Route: IVP, Active 2014 Medical Drug Form: INJ, [place] Dosing Weight 63.727, kg, PRN, PRN Blood Glucose Results, Start date: 02/15/15 2:09:00, Duration: 30 day, Stop date: 03/17/15 2:08:00 Aspirin 81 MG 81 mg = 1 tab, Active [place] Enteric Coated PO, Daily, # 90 2015 M edical Tablet tab, 3 Center Refill(s) rivaroxaban 20 MG 20 mg = 1 tab, Active [place] Oral Tablet PO, QPM, # 30 2015 Medica l [Xarelto] tab, 3 Center Refill(s) Lidocaine 1 patch, TOP, # Inactive [place] Hydrochloride 0.05 30 patch, 0 2015 M edical MG/MG Transdermal Refill(s) Cent er Patch [Lidoderm] Lopressor 100 mg, PO, Inactive [facility] Daily, 0 2014 Medical Refill(s) Center atorvastatin 80 MG 80 mg = 1 tab, Active [facility] Oral Tablet PO, Bedtime, 0 2015 Medic al [Lipitor] Refill(s) Center Acetaminophen 650 mg, PO, In[place] Q6H, 0 2014 Medical Refill(s) Center AMIODarone 200 mg 200 mg = 1 tab, Active [facility] oral tablet PO, Daily, 0 2015 Medical Refill(s) Center Levemir SUB-Q, 0 Inactive [facility] Refill(s) 2015 Medical Center Clonidine 0.1 mg = 1 tab, Inactive [place] Hydrochloride 0.1 PO, Daily, 0 2015 edical MG Oral Tablet Refill(s) Center Hydrochlorothiazide 25 mg, PO, No Longer [facility] Daily, 0 Active 2014 Medical Refill(s) Center Enoxaparin Notes: (Same [place] as: Lovenox) 2014 Medical Center D5NS 1,000 mL 1,000 mL, Rate: No Longer [facility] 60 ml/hr, Active 2014 Medical Infuse over: Center 16.7 hr, Route: IV, Total Volume: 1,000, Start date: 02/14/15 22:08:00, Stop date: 03/16/15 22:07:00 Dextrose 50% 25 gm, 50 mL, Inactive [place] Syringe Route: IVP, 2014 Medical Drug Form: INJ, Center kg, ONCE, Start date: 02/14/15 22:02:00, Stop date: 02/14/15 22:02:00 [place] Notes: Same as Inactive [facility] Keppra Mix 2014 Medical with 100 mL NS, Center LR or D5W MEDICATION WASTE Product Size: 500 mg Product Wasted: ___ mg Levetiracetam 500 Notes: (Same No Longer [place] MG Oral Tablet as:Keppra) Active 2014 Medica l [Keppra] Center Glucagon 3 mg, Route: Inactive [place] IV, ONCE, kg, 2014 Medical Start date: Center 02/14/15 15:52:00, Stop date: 02/14/15 15:52:00 NS 1,000 mL 1,000 mL, Rate: No Longer [place] 40 ml/hr, Active 2014 Medical Infuse over: 25 Center hr, Route: IV, Total Volume: 1,000, Start date: 02/14/15 15:47:00, Duration: 30 day, Stop date: 03/16/15 15:46:00 Allergies, Adverse Reactions, Alerts Substance Category Reaction Severity Reaction Status Date Comments S ource type Reported codeine Assertion Drug Active [facility] allergy penicillins Assertion Drug Active [facility] allergy Immunizations Immunization Date Site Status Last Updated Comments Sour ce Given influenza virus Left completed Tam [place] vaccine, 5 deltoid Medical [facility] Center,M H [facility] tuberculin completed [place] Result Comment : patient refused. [facility]. [facility] purified protein 5 Result Commen t: patient refused. derivative<sup>1, 2</sup> Results Order Name Results Value Reference Date Interpretation Comments Julia rce Range URINE CHEM Time total 06/06 [facility] time 40min URINE CHEM Time 1435 05/25 [facility] URINE CHEM Time 1443 05/25 [facility] URINE CHEM Time 1448 05/25 [facility] URINE CHEM Time 1429 05/25 [facility] URINE CHEM Time 1423 05/25 [facility] URINE CHEM Time 1400 05[facility]25 [facility] URINE CHEM Time 1418 05/25 [facility] URINE AND Occult Bld Negative Negative 04/08 [facility] STOOL Stl (04/08/15 6:06 AM) CHEM PANEL eGFR 96 04/04 Result [facility] Comment: The eGFR is calculated using the [...] PM 0.04-0.35 mcg/dL
Te st Performed at:
[facility]<br/ >[address] [place] [address]
[place] [address] Mark Pickard MD, PhD IMMUNOLOGY H pylori [...] after discontinuing
treatmen t.

Test Performed at:
[facility] [place]
[facility], [address] [place] [address]
[place] [address] Bacilio Bello MD, FCAP IMMUNOLOGY H pylori [...] PANEL BUN 18 7 - 22 02/21 [facility] CHEM PANEL Potassium Lvl 4.5 3.5 - 5.1 02/21 [place] [facility] CHEM PANEL Chloride Lvl 101 95 - 109 02/21 [place] [facility] CHEM PANEL Creatinine 1.1 0.5 - 1.4 02/21 [facility] Lvl [facility] CHEM PANEL Sodium Lvl 136 135 - 145 02/21 [facility] CHEM PANEL Glucose Lvl 82 70 - 99 02/21 [facility] CHEM PANEL CO2 29 24 - 32 02/21 [facility] CHEM PANEL AGAP 10.5 10.0 - 02/21 20. [facility] CHEM PANEL Calcium Lvl 8.6 8.5 - 10.5 02/21 [facility] ELECTROLYTE AGAP 12.4 10.0 - 02/20 [facility] S 20.0 [facility] ELECTROLYTE eGFR 75 02/20 Result [facility] Comment: The Medical eGFR is Center [...] 3.5 - 5.1 02/20 [place] /2014 [facility] ELECTROLYTE Sodium Lvl 137 135 - 145 02/20 [facility] s S /2014 [facility] ELECTROLYTE Chloride Lvl 102 95 - 109 02/20 [facility] S /2014 [facility] ELECTROLYTE CO2 27 24 - 32 02/20 [facility] S 2014 [facility] ELECTROLYTE Calcium Lvl 8.7 8.5 - 10.5 02/20 [place] S /2014 [facility] ELECTROLYTE Glucose Lvl 92 70 - 99 02/20 [facility] /2014 [facility] ELECTROLYTE BUN 14 7 - 22 02/20 [facility] S /2014 [facility] ELECTROLYTE Creatinine 0.8 0.5 - 1.4 02/20 [facility] s S l /2014 [facility] HEMATOLOGY Basophils 1.0 0.0 - 1.0 02/20 [facility]2014 [facility] HEMATOLOGY Monocytes 6.8 2.0 - 12.0 02/20 [facility]2014 [facility] HEMATOLOGY Eosinophils 11.0 0.0 - 4.0 02/20 [facility] s 2014 [facility] HEMATOLOGY Anisocyte 1+ None Seen 02/20 [facility] *ABN* /2014 Medical (02/20/15 5:38 AM) Center HEMATOLOGY Microcyte 1+ None Seen 02/20 [facility] *ABN* /2014 Medical (02/20/15 5:38 AM) Center HEMATOLOGY Basophils # 0.1 0.0 - 0.2 02/20 s [facility] HEMATOLOGY Monocytes # 0.5 0.0 - 0.8 02/20 [facility] HEMATOLOGY Eosinophils # 0.9 0.0 - 0.5 02/20 [facility] HEMATOLOGY Segs 59.5 45.0 - 02/20 [place] 75.0 [facility] HEMATOLOGY Lymphocytes 21.7 20.0 - 02/20 40.0 [facility] HEMATOLOGY Segs-Bands # 4.7 1.5 - 8.1 02/20 [facility] HEMATOLOGY Lymphocytes # 1.7 1.0 - 5.5 02/20 [facility] HEMATOLOGY Hypochrom 1+ None Seen 02/20 [facility] (02/20/15 5:38 AM) [facility] HEMATOLOGY MCH 24.4 27.0 - 02/20 [place] 31.0 [facility] HEMATOLOGY MCHC 31.6 32.0 - 02/20 [place] 36.0 [facility] HEMATOLOGY WBC 7.9 3.7 - 10.4 02/20 [facility] HEMATOLOGY RBC 4.44 4.20 - 02/20 [place] 5.40 /2014 [facility] HEMATOLOGY Hct 34.3 36.0 - 02/20 48.0 [facility] HEMATOLOGY Hgb 10.8 12.0 - 02/20 16.0 [facility] HEMATOLOGY MCV 77.3 80.0 - 02/20 [place] 98.0 [facility] HEMATOLOGY RDW 21.2 11.5 - 02/20 [place] 14.5 [facility] HEMATOLOGY Platelet 263 133 - 450 02/20 [facility] HEMATOLOGY MPV 8.2 7.4 - 10.4 02/20 [facility] CHEM PANEL Calcium Lvl 8.7 8.5 - 10.5 02/18 [facility] CHEM PANEL CO2 26 24 - 32 02/18 [facility] CHEM PANEL Glucose Lvl 81 70 - 99 02/18 [facility] CHEM PANEL Sodium Lvl 137 135 - 145 02/18 [facility] CHEM PANEL Creatinine 0.9 0.5 - 1.4 02/18 [facility] Lvl [facility] CHEM PANEL BUN 18 7 - 22 02/18 [facility] CHEM PANEL Potassium Lvl 3.9 3.5 - 5.1 02/18 [place] [facility] CHEM PANEL Chloride Lvl 104 95 - 109 02/18 [place] [facility] CHEM PANEL eGFR 65 02/18 [facility] Comment: The Medical eGFR is Center calculated [...] PANEL AGAP 10.9 10.0 - 02/18 20.0 [facility] HEMATOLOGY RBC 4.40 4.20 - 02/18 [place] 5.40 /2014 [facility] HEMATOLOGY WBC 8.2 3.7 - 10.4 02/18 [facility] HEMATOLOGY Hgb 10.6 12.0 - 02/18 [place] 16.0 [facility] HEMATOLOGY MCH 24.2 27.0 - 02/18 [place] 31.0 [facility] HEMATOLOGY MCHC 31.1 32.0 - 02/18 36.0 [facility] HEMATOLOGY MCV 77.7 80.0 - 02/18 98.0 [facility] HEMATOLOGY Hct 34.2 36.0 - 02/18 [place] 48.0 [facility] HEMATOLOGY Platelet 254 133 - 450 02/18 Medical Center HEMATOLOGY MPV 8.1 7.4 - 10.4 02/18 [facility] HEMATOLOGY RDW 21.5 11.5 - 02/18 14. [facility] HEMATOLOGY Eosinophils 10.1 0.0 - 4.0 02/18 [facility] HEMATOLOGY Monocytes 7.8 2.0 - 12.0 02/18 [facility] HEMATOLOGY Lymphocytes # 2.0 1.0 - 5.5 02/18 [facility] HEMATOLOGY Segs-Bands # 4.6 1.5 - 8.1 02/18 [facility] HEMATOLOGY Lymphocytes 24.6 20.0 - 02/18 [place] 40.0 [facility] HEMATOLOGY Segs 56.6 45.0 - 02/18 75.0 [facility] HEMATOLOGY Basophils 0.9 0.0 - 1.0 02/18 [facility] HEMATOLOGY Eosinophils # 0.8 0.0 - 0.5 02/18 [facility] HEMATOLOGY Monocytes # 0.6 0.0 - 0.8 02/18 [facility] HEMATOLOGY Microcyte 1+ None Seen 02/18 *ABN* Medical (02/18/15 6:20 AM) Center HEMATOLOGY Anisocyte 1+ None Seen 02/18 *ABN* Medical (02/18/15 6:20 AM) Center HEMATOLOGY Basophils # 0.1 0.0 - 0.2 02/18 [facility] HEMATOLOGY MPV 8.0 7.4 - 10.4 02/17 [facility] HEMATOLOGY Platelet 237 133 - 450 02/17 [facility] HEMATOLOGY Hgb 10.7 12.0 - 02/17 [place] 16.0 [facility] HEMATOLOGY RBC 4.45 4.20 - 02/17 [place] 5.40 [facility] HEMATOLOGY Hct 34.4 36.0 - 02/17 [place] 48.0 [facility] HEMATOLOGY WBC 8.4 3.7 - 10.4 02/17 [facility] HEMATOLOGY RDW 21.4 11.5 - 02/17 14. [facility] HEMATOLOGY MCHC 31.2 32.0 - 02/17 [place] 36.0 Medical Center HEMATOLOGY MCV 77.4 80.0 - 02/17 [place] 98.0 /2014 [facility] HEMATOLOGY MCH 24.1 27.0 - 02/17 [place] 31.0 [facility] HEMATOLOGY Basophils # 0.1 0.0 - 0.2 02/17 [facility] HEMATOLOGY Microcyte 1+ None Seen 02/17 *ABN* Medical (02/17/15 5:18 AM) Center HEMATOLOGY Anisocyte 1+ None Seen 02/17 *ABN* Medical (02/17/15 5:18 AM) Center HEMATOLOGY Eosinophils # 0.7 0.0 - 0.5 02/17 [facility] HEMATOLOGY Monocytes # 0.7 0.0 - 0.8 02/17 [facility] HEMATOLOGY Segs-Bands # 4.9 1.5 - 8.1 02/17 [facility] HEMATOLOGY Monocytes 8.5 2.0 - 12.0 02/17 2014 [facility] HEMATOLOGY Lymphocytes # 2.0 1.0 - 5.5 02/17 [facility] HEMATOLOGY Eosinophils 8.2 0.0 - 4.0 02/17 [facility] HEMATOLOGY Basophils 0.8 0.0 - 1.0 02/17 [facility] HEMATOLOGY Lymphocytes 23.8 20.0 - 02/17 [place] 40.0 [facility] HEMATOLOGY Segs 58.7 45.0 - 02/17 [place] 75.0 [facility] CHEM PANEL A/G Ratio 0.5 0.7 - 1.6 02/15 [facility] CHEM PANEL Alk Phos 112 39 - 136 02/15 [facility] CHEM PANEL Bili Total 0.7 0.2 - 1.3 02/15 [facility] CHEM PANEL ALT 48 0 - 65 02/15 [facility] CHEM PANEL AST 43 0 - 37 02/15 2014 [facility] CHEM PANEL Globulin 5.6 2.0 - 4.0 02/15 2014 [facility] CHEM PANEL Total Protein 8.5 6.4 - 8.4 02/15 [facility] CHEM PANEL Albumin Lvl 2.9 3.5 - 5.0 02/15 [facility] CHEM PANEL B/C Ratio 30 6 - 25 02/15 /2014 [facility] HEMATOLOGY PTT 31.9 22.9 - 02/15 [place] 35.8 /2014 [facility] URINE AND UA Hyal Cast 1 0 - 2 02/15 [facility] URINE AND UA Amorph Few /HPF None Seen 02/15 [facility] STOOL Ariana /HPF /2014 [facility] URINE AND UA <=1.0 0.1 - 1.0 02/15 [facility] Urobilinogen mg/dL /2014 [facility] URINE AND UA Sq Epi Occasional Few /LPF 02/15 [facility] STOOL /LPF /2014 [facility] URINE AND UA Mucus Few /LPF None Seen 02/15 [facility] /LPF /2014 [facility] URINE AND UA Bacteria Occasional None Seen 02/[place]OL /HPF /HPF /2014 [facility] URINE AND UA WBC 71 0 - 5 02/15 [facility] URINE AND UA RBC 2 0 - 2 02/15 [facility] URINE AND UA Glucose Negative Negative 02/15 [facility] mg/dL mg/dL [facility] URINE AND UA Leuk Est Large Negative 02/15 [facility] *ABN* /2014 [facility] (02/15/15 2:47 AM) [place] URINE AND UA Nitrite Negative Negative 02/15 [facility] (02/15/15 2:47 AM) /2014 [facility] URINE AND UA Blood Negative Negative 02/15 [facility] (02/15/15 2:47 AM) /2014 [facility] URINE AND UA Ketones Negative Negative 02/15 [facility] mg/dL mg/dL [facility] URINE AND UA Bili Negative Negative 02/15 [facility] *NA* /2014 [facility] (02/15/15 2:47 AM) [place] URINE AND UA Protein Negative Negative 02/15 [facility] mg/dL mg/dL /2014 [facility] URINE AND UA pH 6.0 5.0 - 8.0 02/15 [facility] URINE AND UA Spec Grav 1.013 <=1.030 02/15 [facility] URINE AND UA Turbidity Clear Clear 02/15 [facility] (02/15/15 2:47 AM) /2014 [facility] URINE AND UA Color Yellow Yellow 02/15 [facility] STOOL *NA* /2014 [facility] (02/15/15 2:47 AM) [place] CARDIAC BNP 128 <=100 02/14 [facility] ENZYMES pg/mL /2014 [facility] CARDIAC Troponin-I <0.02 0.00 - 02/14 [facility] ENZYMES 0.40 [facility] CHEM PANEL Phosphorus 3.6 2.5 - 4.5 02/14 [facility] CHEM PANEL Magnesium Lvl 2.0 1.8 - 2.4 02/14 [facility] CHEM PANEL Lactic Acid 1.1 0.5 - 2.2 02/14 [facility] [facility] CHEM PANEL B/C Ratio 26 6 - 25 02/14 [facility]2014 [facility] CHEM PANEL A/G Ratio 0.5 0.7 - 1.6 02/14 [facility]2014 [facility] CHEM PANEL Globulin 5.2 2.0 - 4.0 02/14 [facility]2014 [facility] CHEM PANEL Total Protein 7.9 6.4 - 8.4 02/14 [facility] CHEM PANEL Albumin Lvl 2.7 3.5 - 5.0 02/14 [facility] CHEM PANEL ALT 36 0 - 65 02/14 [facility] CHEM PANEL Alk Phos 97 39 - 136 02/14 [facility]2014 [facility] CHEM PANEL AST 31 0 - 37 02/14 [facility]2014 [facility] CHEM PANEL Bili Total 0.4 0.2 - 1.3 02/[address] HEMATOLOGY Schistocyte 1-3 per HPF None Seen 02/14 [facility] (02/14/15 2:15 PM) [facility] HEMATOLOGY Target Cell Moderate None Seen 02/14 [facility] as *ABN* /2014 [facility] (02/14/15 2:15 PM) [place] HEMATOLOGY Hypochrom 1+ None Seen 02/14 [facility] (02/14/15 2:15 PM) [facility] HEMATOLOGY Plt Morph Normal 02/14 [facility] (02/14/15 2:15 PM) [facility] Pathology Reports No Data Provided for This [...] DX EXAM: XR CHEST 2 VIEWS 02/20/2015 [facility] DATE: 2015-02-20 01:52:00 INDICATION: Coughing . COMPARISON: [...] DX EXAM: XR CHEST 1 VIEW 02/14/2015 [facility] DATE: February 14, 2015 at 1456 hours [...] 20 03/11/2015 [facility] Heart Rate 71 03/03/[facility] Respitory Rate 20 03/03/2015 [facility] Systolic (mm Hg) 172 03/03/2015 [facility] Diastolic (mm Hg) 73 03/03/2015 [facility] Temperature Oral (F) 97.6 F 03/03/2015 [facility] Systolic (mm Hg) 94 03/03/2015 [facility] Diastolic (mm Hg) 54 03/03/2015 [facility] Heart Rate 79 03/03/2015 [facility] Respitory Rate 17 03/03/2015 [facility] Systolic (mm Hg) 90 03/03/2015 [facility] Di[facility] (mm Hg) 49 03/03/2015 [facility] Respitory Rate 18 03/03/2015 [facility] Heart Rate 75 03/03/2015 [facility] Temperature Oral (F) 97.5 F 03/03/2015 [facility] Temperature Oral (F) 97.4 F 03/03/2015 [facility] Weight 63.7 02/16/2015 [facility] Height 157.48 cm 02/15/2015 [facility] BMI Calculated 25.7 02/15/2015 [facility] Weight 63.727 02/15/2015 [facility] Encounters Location Location Encounter Encounter Reason Attending ADM DC Stat us Source Details Type Number For Provider Date Date Visit [facility] In[facility] [id number] Apollo 02/14 03/03 [facility]2014 [facility] Inpatient [id number] Aime 03/11 04/09 [facility] Jenny /2014 [place] [facility] Tots [id number] Fabiolhi 04/18 05/18 [facility]2014 [place] [facility] Tots [id number] Fabiolhi 05/18 06/17 [facility] /2014 [place] [facility] Outpatient [id number] Jessica 06/13 06/14 [facility] Kaycee-Gut /2015 [facility] Tots [id number] Fabiolla 06/20 07/20 [facility] Diana /2015 [place] [facility] Outpatient [id number] Madelyn 06/27 06/28 [facility] Yunior /2015 [facility] Outpatient [id number] Madelyn 07/04 07/05 [facility] Yunior /2015 [facility] Outpatient [id number] Madelyn07/18 [facility] Yunior [facility] Tots [id number] Fabiolla 07/20 08/18 [facility] [place] [facility] Outpatient [id number] Fabiolla 08/04 08/05 [facility] Diana [facility] Tots [id number] Fabiolla 08/21 09/20 [facility] [place] [facility] Tots [id number] Fabiol09/20 [facility] Therapy Diana [place] [facility] Outpatient [id number] Jessica 09/22 09/23 [facility] Kaycee-Gut [facility] Tots [id number] Fabiol10/25 [facility] Therapy Diana [place] [facility] Outpatient [id number] Jessica 11/03 11/04 [facility] /2015 [facility] Outpatient [id number] Fabiol02/16 [facility] Diana [facility] Procedures Procedure Code Date [place] [address] 09/23/2015 TI RR one extremity; 5 or more muscles Uterine fibroidectomy [id number] 05/27/1995 [facility] Assessment and Plan Assessment and Plan Date Source Extracted from:Title: Clinical Document 04/09/2015 [facility] Author: Joellen Riggs MD Date: 04/09/15 PM&R [...] Q4H 03/16/15 bisacodyl (Dulcolax Laxative) 10 mg [place] Daily 03/31/15 diclofenac topical (Voltaren Topical 1% [...] a-fib on xarelto who presented from her prison on 02/14/15 due to an increase in lethargy / unresponsiveness and left leg twitching. Patient was sent to an OSH in [facility] where CT and MRI were done. 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 She was found to be bradycardic, hypotensive, and hypoglycemic in ER at [facility]. BB and amiodarone were held with improvement [...] no epileptiform activity. The patient admitted to [facility] for comprehensive neurorehabilitation. HOSPITAL COURSE: The following [...] now resolved. Cont to monitor BP. - [place] hospitalist following; appreicate r ecs: -Cont coreg, [...] -Patient reports having a good BM at [facility] every other day; states this is [...] over the weekend and poor PO intake -[place] hospitalist following; appreciate re cs. Will continue [...] juice with meals TID. Cont monitoring by ENGINEER/CONDUCTOR. -nutritional boost order is in place, MD [...] weeks with Lyn Ortiz. PT, OT and ENGINEER/CONDUCTOR will call your home to schedule therapies. Primary care physician in 1-2 weeks, alexander jeong blood glucose, cardiac function, anemia French Ortiz MD Brain Injury Medicine Tool Operator Professor [facility] Extracted from:Title: Functional Vision Assessment Author: [...] History and Physical Transferring facility and physician: [facility] Hospitalization for CVA on October 2014 was at [facility], for Encephalopathy in Jan 2015 was at [facility] Chief complaint and reason for hospitali zation: [...] a-fib on xarelto who presented from her prison on 02/14/15 due to an increase in lethargy / unresponsiveness and left leg twitching. Patient was sent to an OSH in [facility] where CT and MRI were done. 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 She was found to be bradyardic, hypotensive, and hypoglycemic in ER at [facility]. BB and amiodarone were held with improvement [...] was denied and patient was admitted to [facility]. Hus band appealed decision and it was overtu rned. The patient will be admitted to [facility] for comprehensive neurorehabilitation. Past MedicalSurgical History: A fib, CVA, DM, dysphagia, hemiplegia, HTN, partial seizure, GERD Functional History: Previously independe nt with activities of daily living and did not require any assistive living devices prior to injury. Currently Mod to max assist with ADLs and mobility Social History: Patient lives in a [facility] w ith and son, just prior to hospitalization she was at prison, denies alcohol, tobacco, or illicit drug use. Family History: reports no family history of medical conditi ons Medications: patient reports not know ing entire medication list, and medication list from SNF does not appear correct, attempted to verify medication list from SNF and received same sheet as before, will start same medications that were given at discharge fro [facility] Scheduled Meds (15): 03/11/15 AMIODarone 200 mg [...] Impaired community access Participations restrictions: Leisure activities Worship activities Community reintegration Impaired vocation and avocation [...] held due to low blood pressures at [facility], mo celiaor closely # Possible CHF -Have [...] sips and sitting upright with meals -Cont filter screen cleaner # Infectious Disease: - No active infections [...] French Ortiz Brain Injury Rehabilitation Medicine Specialist [facility] Plan of Care No Data Provided for This Section Social History Social History Date Source Social History TypeResponse 02/17/2016 [facility] Smoking Status Never smoker; Exposure to Tobacco Smoke None; Cigarette Smoking Last 365 Days Yes; Reg Smoking Cessation Counseling No Social History TypeResponse 02/14/2015 [facility] Smoking Status Never smoker; Exposure to Tobacco Smoke None; Cigarette Smoking Last 365 Days No; Reg Smoking Cessation Counseling No Family History No Data Provided for This Section Advance Directives No Data Provided for This Section Functional Status No Data Provided for This Section
[2020-03-28] MEDS ORDERED: ALBUTEROL 2.5 MG/3 ML NEB SOL NEB PRN (17:00)
[2020-03-28] MEDS ORDERED: ACETAMINOPHEN 650MG/RECT SUPP PR PRN (17:02)
[2020-03-28] MEDS ORDERED: BISACODYL 10 MG RECTAL SUPP PR PRN (17:03)
[2020-03-28] MEDS ORDERED: FENTANYL CITR 100 MCG/2 ML IV PRN (17:04)
[2020-03-28] MEDS ORDERED: PROMETHAZINE INJ 25 MG/ML AMP IV PRN (17:06)
[2020-03-28] MEDS ORDERED: SCOPOLAMINE HYDROBROMIDE PATCH TD SCH (18:00)
[2020-03-28] MEDS: LORazepam 2 MG/ML VIAL IV PRN ×2 (18:05→20:32)
[2020-03-29 00:21] VITALS: O2SAT 91
[2020-03-29 01:34] VITALS: TEMP 97.1
[2020-03-29 02:25] VITALS: BMI 23.4
[2020-03-29] MEDS: LORazepam 2 MG/ML VIAL IV PRN (04:39)
[2020-03-30 02:31] VITALS: BP 100/60
== END 2020-03-29 07:10 | disposition expired | DRG 951 ==
LOC: 2ND 16:32
PROVIDERS: ADMIT Internal Medicine Hematology & Oncology; ATTEND Internal Medicine Hematology & Oncology
DX: Z51.5 Encounter for palliative care (principal)
CPT/HCPCS: 94640